=== PATIENT | male | born 1945 | race Hispanic/Latino ===

== ENCOUNTER 2020-02-08 08:57 | Inpatient (IN) | payer BC, MEDICARE ==
[2020-02-08] MEDS ORDERED: LORazepam 2 MG/ML VIAL IV ONE (09:05)
--- NOTE | 2020-02-08 09:46 | Cat Scan Report ---
CT HEAD WITHOUT CONTRAST INDICATION / CLINICAL INFORMATION: MAIN: CODE STROKE CALL [phone]. TECHNIQUE: Axial imaging performed from the skull apex through the skull base without the use of cont rast. Sagittal and coronal reformatted images. All CT scans at this location are performed using CT dose reduction for ALARA by means of automated exposure control. COMPARISON: None available. FINDINGS: CEREBRAL PARENCHYMA: No significant abnormality. No acute territorial infarct. HEMORRHAGE: None. EXTRA-AXIAL SPACES: Normal in size and morphology for the patient's age. VENTRICULAR SYSTEM: Normal in size and morphology for the patient's age. MIDLINE SHIFT OR HERNIATION: None. CEREBELLUM / BRAINSTEM: No significant abnormality. CALVARIUM: No significant abnormality. ORBITS: Normal as visualized. 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 The remaining sinuses are adequately aerated. SOFT TISSUES of HEAD: No significant abnormality. ADDITIONAL FINDINGS: None. IMPRESSION: No acute intracranial abnormality. Chronic left maxillary sinusitis. These findings were discussed with LAUREL Carcamo ironworker machine operator, in the emergency department at 0941 hours. Signer Name: Rivera Martinez Jr, MD Signed: 02/08/2020 9:42 AM Workstation Name: [id number]
[2020-02-08] MEDS ORDERED: SODIUM CHLORIDE 0.9% 1000 ML 2,000 ML ONE (10:01)
[2020-02-08] MEDS ORDERED: SODIUM CHLORIDE 0.9% 1000 ML 1,000 ML IV ONE ×3 (10:06→10:50)
[2020-02-08] MEDS ORDERED: LORazepam 2 MG/ML VIAL ONE (10:08)
[2020-02-08 10:16] LABS: INR 1.02 (0.87-1.13)
[2020-02-08 10:17] LABS: Partial Thromboplastin Time 23.2 Sec. (24.2-36.6); Thrombin Time 18.6 Sec. (15.1-19.6)
[2020-02-08 10:18] LABS: Mean Corpuscular HGB Conc 32 % (32-34); Mean Corpuscular Volume 90 fl (84-94); Red Blood Count 5.59 M/mm3 (3.65-5.03); Red Cell Distribution Width 14.1 % (13.2-15.2)
--- NOTE | 2020-02-08 10:22 | Cat Scan Report ---
CT ANGIOGRAM 02/08/2020 HISTORY: CVA FINDINGS: Contrast-enhanced CT angiographic images of the neck were obtained. In addition to the axia l images, sagittal and coronal reformatted images were obtained. In addition, 3 plane MIP reconstruct ions were produced. NASCET like criteria were used in this evaluation. There is no evidence of carotid bifurcation stenosis. There is normal contours of the common and inte rnal carotid arteries. Tortuosity of the cervical internal carotid arteries is present, more pronounc ed on the right than on the left. Vertebral artery contours are unremarkable. Visualized portions of the aortic arch demonstrate no significant abnormality. Soft tissue structures in the neck are unremarkable. IMPRESSION: No significant abnormality. All CT scans at this location are performed using dose reduction to ALARA by means of automated expos ure control. Signer Name: Carter Lacey MD Signed: 02/08/2020 10:18 AM Workstation Name: [id number]
[2020-02-08 10:27] LABS: Platelet Count 197 K/mm3 (140-440)
--- NOTE | 2020-02-08 10:36 | Emergency Department Report ---
ED Altered Mental Status HPI - General Stated Complaint: AMS Time Seen by Provider: 02/08/20 09:19 - History of Present Illness Initial Comments: Patient is 74-year-old male with history of hypertension. Patient brought to the emergency room via EMS from home for evaluation of altered mental status and decreased responsiveness. EMS stated that patient stated that last time he was normal was 9 PM when he went to bed. denied any history of seizure. She also denied any history of previous stroke. She also informed EMS that he did not have any fever or chills recently. Stroke protocol immediately initiated and patient moved to CT for stat CT brain. Upon return from the CT patient became more obtunded, patient is unable to maintain his airway. Patient immediately intubated by me using a glide scope with ET tube confirmation by direct visualization, capnometry and good breath sounds on both side. Sepsis protocol also initiated for possible sepsis. Patient examined by Dr. Nieto, he advised that patient is not a TPA candidate because of unknown time of onset. MD Complaint: altered mental status, decreased responsiveness -: unknown Severity: severe - Related Data Allergies Allergy/AdvReac Type Severity Reaction Status Date / Time Iodine and Iodide Containing Allergy Anaphylaxis Verified 02/08/20 11:38 Produc ED Review of Systems ROS: Stated complaint: AMS Other details as noted in HPI Comment: Unobtainable due to pts medical conditions ED Physical Exam - General General appearance: obtunded - Head Head exam: Present: atraumatic, normocephalic, normal inspection - Eye Eye exam: Present: conjunctival injection (Left eye.) - ENT ENT exam: Present: mucous membranes dry - Neck Neck exam: Present: normal inspection - Respiratory Respiratory exam: Present: normal lung sounds bilaterally - Cardiovascular Cardiovascular Exam: Present: tachycardia - GI/Abdominal GI/Abdominal exam: Present: soft, normal bowel sounds. Absent: distended, tenderness - Extremities Exam Extremities exam: Present: normal inspection, full ROM, normal capillary refill - Back Exam Back exam: Present: normal inspection, full ROM. Absent: CVA tenderness (R), CVA tenderness (L) - Neurological Exam Neurological exam: Present: altered - Psychiatric Psychiatric exam: Present: normal mood - Skin Skin exam: Present: warm, intact, normal color - Assessment Assessment Interval: Baseline - Level of Consciousness 1a. Level of Consciousness: coma/unresponsive - LOC Questions 1b. LOC Questions: answers no questions correctly - LOC Command 1c. LOC Commands: performs no tasks correctly - Best Gaze 2. Best Gaze: normal - Visual 3. Visual: bilateral hemianopia - Facial Palsy 4. Facial Palsy: normal symmetrical movement - Motor Arm 5a. Motor Arm Left: no movement 5b. Motor Arm Right: no movement - Motor Leg 6a. Motor Leg Left: no movement 6b. Motor Leg Right: no movement - Limb Ataxia 7. Limb Ataxia: absent - Sensory 8. Sensory: coma/unresponsive - Best Language 9. Best Language: coma/unresponsive - Dysarthria 10. Dysarthria: intubated or other barrier - Extinction and Inattention 11. Extinction/Inattention: no abnormality - Scoring Total Score: 31 Stroke Severity: Severe Stroke ED Course Vital Signs 02/08/20 02/08/20 02/08/20 09:12 09:49 10:00 Temperature 99.7 F H Pulse Rate 116 H 115 H 97 H Respiratory 24 28 H 12 Rate Blood Pressure 89/53 146/65 O2 Sat by Pulse 98 99 Oximetry 02/08/20 02/08/20 02/08/20 10:12 10:15 10:30 Temperature Pulse Rate 110 H 101 H 108 H Respiratory 19 24 Rate Blood Pressure 164/73 164/73 166/83 O2 Sat by Pulse 100 100 96 Oximetry 02/08/20 02/08/20 02/08/20 10:45 11:00 11:15 Temperature Pulse Rate 113 H 114 H 114 H Respiratory 20 21 29 H Rate Blood Pressure 176/76 163/78 144/55 O2 Sat by Pulse 100 100 100 Oximetry 02/08/20 02/08/20 02/08/20 11:30 11:45 12:15 Temperature Pulse Rate 112 H 109 H 108 H Respiratory 23 24 23 Rate Blood Pressure 159/73 144/68 130/69 O2 Sat by Pulse 100 99 100 Oximetry 02/08/20 02/08/20 02/08/20 12:45 13:15 13:45 Temperature Pulse Rate 100 H 95 H 93 H Respiratory 22 20 18 Rate Blood Pressure 128/63 119/57 105/52 O2 Sat by Pulse 100 99 98 Oximetry 02/08/20 02/08/20 02/08/20 14:15 14:45 15:15 Temperature Pulse Rate 92 H 89 87 Respiratory 18 18 21 Rate Blood Pressure 105/51 103/58 106/58 O2 Sat by Pulse 98 98 98 Oximetry 02/08/20 02/08/20 02/08/20 15:45 16:15 16:27 Temperature Pulse Rate 85 86 84 Respiratory 20 20 Rate Blood Pressure 107/58 104/58 104/58 O2 Sat by Pulse 97 98 98 Oximetry 02/08/20 02/08/20 02/08/20 16:45 17:00 17:15 Temperature Pulse Rate 82 82 84 Respiratory 20 20 20 Rate Blood Pressure 106/59 94/51 88/50 O2 Sat by Pulse 99 98 99 Oximetry 02/08/20 02/08/20 02/08/20 17:46 18:15 18:45 Temperature Pulse Rate 83 86 84 Respiratory 20 20 20 Rate Blood Pressure 102/54 113/58 112/58 O2 Sat by Pulse 99 99 99 Oximetry 02/08/20 02/08/20 02/08/20 19:15 19:45 20:00 Temperature Pulse Rate 81 79 82 Respiratory 20 20 Rate Blood Pressure 101/53 108/55 111/59 O2 Sat by Pulse 99 100 98 Oximetry 02/08/20 02/08/20 02/08/20 20:15 20:45 21:45 Temperature Pulse Rate 82 81 86 Respiratory 20 20 20 Rate Blood Pressure 113/58 124/60 115/62 O2 Sat by Pulse 99 97 100 Oximetry 02/08/20 02/08/20 02/08/20 22:30 22:45 23:01 Temperature Pulse Rate 78 76 76 Respiratory 20 20 20 Rate Blood Pressure 95/53 100/55 121/62 O2 Sat by Pulse 99 100 Oximetry 02/08/20 02/08/20 02/08/20 23:15 23:30 23:45 Temperature Pulse Rate 87 80 79 Respiratory 17 20 20 Rate Blood Pressure 121/62 111/55 111/55 O2 Sat by Pulse 100 99 99 Oximetry 02/08/20 02/09/20 02/09/20 23:46 00:00 00:11 Temperature Pulse Rate 80 76 75 Respiratory 20 20 20 Rate Blood Pressure 111/55 90/52 90/52 O2 Sat by Pulse 99 98 100 Oximetry 02/09/20 02/09/20 02/09/20 00:15 00:30 00:45 Temperature Pulse Rate 75 72 70 Respiratory 20 20 20 Rate Blood Pressure 90/52 96/53 96/53 O2 Sat by Pulse 100 100 Oximetry 02/09/20 02/09/20 02/09/20 01:00 01:15 01:30 Temperature Pulse Rate 68 68 70 Respiratory 20 20 20 Rate Blood Pressure 91/53 91/53 106/59 O2 Sat by Pulse 98 100 Oximetry 02/09/20 02/09/20 02/09/20 01:45 02:00 02:15 Temperature Pulse Rate 72 68 70 Respiratory 20 20 20 Rate Blood Pressure 106/59 97/53 97/53 O2 Sat by Pulse 99 100 100 Oximetry 02/09/20 02/09/20 02/09/20 02:30 02:45 03:01 Temperature Pulse Rate 68 69 77 Respiratory 20 20 20 Rate Blood Pressure 95/53 95/53 124/64 O2 Sat by Pulse 99 99 Oximetry 02/09/20 02/09/20 02/09/20 03:15 03:30 03:34 Temperature Pulse Rate 77 75 76 Respiratory 20 20 Rate Blood Pressure 124/64 104/56 104/75 O2 Sat by Pulse 99 100 100 Oximetry 02/09/20 02/09/20 02/09/20 03:45 04:00 04:15 Temperature Pulse Rate 75 74 74 Respiratory 20 21 20 Rate Blood Pressure 104/56 98/50 98/50 O2 Sat by Pulse 100 99 100 Oximetry 02/09/20 02/09/20 02/09/20 04:30 04:45 05:00 Temperature Pulse Rate 77 75 72 Respiratory 20 20 20 Rate Blood Pressure 107/57 107/57 107/54 O2 Sat by Pulse 100 100 Oximetry 02/09/20 02/09/20 02/09/20 05:15 05:30 05:45 Temperature Pulse Rate 78 73 74 Respiratory 20 20 20 Rate Blood Pressure 107/54 102/54 102/54 O2 Sat by Pulse 99 99 100 Oximetry 02/09/20 02/09/20 02/09/20 06:00 06:15 06:30 Temperature Pulse Rate 77 79 77 Respiratory 20 19 20 Rate Blood Pressure 111/58 111/58 116/59 O2 Sat by Pulse 100 99 Oximetry 02/09/20 02/09/20 02/09/20 06:45 07:00 07:15 Temperature Pulse Rate 77 77 76 Respiratory 20 20 20 Rate Blood Pressure 116/59 115/56 115/56 O2 Sat by Pulse 100 99 100 Oximetry 02/09/20 02/09/20 02/09/20 07:30 07:45 08:00 Temperature 98.7 F Pulse Rate 75 74 77 Respiratory 20 20 20 Rate Blood Pressure 107/55 107/55 120/61 O2 Sat by Pulse 100 99 100 Oximetry 02/09/20 02/09/20 02/09/20 08:15 08:30 08:45 Temperature Pulse Rate 75 76 81 Respiratory 20 20 21 Rate Blood Pressure 120/61 113/54 113/54 O2 Sat by Pulse 99 98 99 Oximetry 02/09/20 02/09/20 02/09/20 08:55 09:00 09:15 Temperature Pulse Rate 74 90 76 Respiratory 20 20 Rate Blood Pressure 103/52 130/60 130/60 O2 Sat by Pulse 100 97 99 Oximetry 02/09/20 02/09/20 02/09/20 09:31 09:45 10:00 Temperature Pulse Rate 73 72 74 Respiratory 20 20 20 Rate Blood Pressure 94/48 94/48 103/52 O2 Sat by Pulse 97 99 98 Oximetry 02/09/20 02/09/20 02/09/20 10:15 10:30 10:45 Temperature Pulse Rate 73 76 77 Respiratory 20 20 20 Rate Blood Pressure 103/52 123/63 103/52 O2 Sat by Pulse 99 99 99 Oximetry 02/09/20 02/09/20 02/09/20 11:00 11:15 11:30 Temperature Pulse Rate 79 81 81 Respiratory 20 20 20 Rate Blood Pressure 135/63 135/63 109/58 O2 Sat by Pulse 100 100 Oximetry 02/09/20 02/09/20 02/09/20 11:45 12:00 12:15 Temperature 98.8 F Pulse Rate 78 78 93 H Respiratory 20 20 17 Rate Blood Pressure 109/58 108/55 108/55 O2 Sat by Pulse 100 98 Oximetry 02/09/20 02/09/20 02/09/20 12:30 12:36 12:45 Temperature Pulse Rate 82 68 88 Respiratory 16 14 Rate Blood Pressure 116/55 116/51 116/55 O2 Sat by Pulse 97 100 98 Oximetry 02/09/20 02/09/20 02/09/20 13:00 13:15 13:30 Temperature Pulse Rate 83 84 84 Respiratory 14 14 14 Rate Blood Pressure 107/54 107/54 109/53 O2 Sat by Pulse 97 98 Oximetry 02/09/20 02/09/20 02/09/20 13:45 14:00 14:15 Temperature Pulse Rate 89 85 83 Respiratory 13 15 15 Rate Blood Pressure 109/53 112/56 112/56 O2 Sat by Pulse 99 98 Oximetry 02/09/20 02/09/20 02/09/20 14:30 14:45 15:00 Temperature Pulse Rate 80 81 81 Respiratory 15 16 18 Rate Blood Pressure 118/56 118/56 109/58 O2 Sat by Pulse 98 99 98 Oximetry 02/09/20 02/09/20 02/09/20 15:15 15:30 15:45 Temperature Pulse Rate 81 83 93 H Respiratory 14 15 12 Rate Blood Pressure 109/58 116/61 116/61 O2 Sat by Pulse 99 99 100 Oximetry 02/09/20 02/09/20 02/09/20 16:01 16:15 16:30 Temperature Pulse Rate 89 85 110 H Respiratory 15 16 25 H Rate Blood Pressure 133/65 133/65 138/83 O2 Sat by Pulse 99 99 99 Oximetry 02/09/20 02/09/20 02/09/20 16:35 16:45 17:00 Temperature Pulse Rate 112 H 90 82 Respiratory 17 16 Rate Blood Pressure 138/83 138/83 110/54 O2 Sat by Pulse 100 98 96 Oximetry 02/09/20 02/09/20 02/09/20 17:15 17:30 17:45 Temperature Pulse Rate 82 80 79 Respiratory 16 16 16 Rate Blood Pressure 110/54 103/53 103/53 O2 Sat by Pulse 98 96 98 Oximetry 02/09/20 02/09/20 18:00 19:00 Temperature Pulse Rate 84 87 Respiratory 22 15 Rate Blood Pressure 107/57 127/65 O2 Sat by Pulse 97 Oximetry - Intubation Time Out Performed: Yes Sedative: Etomidate Paralytic: Succinylcholine Laryngoscope: Thalia Size: 4 Assist Device Used: fiberoptic device ET Tube Size: 7.5 Tube Secured Location: teeth Tube Placement Confirmation: visualized tube passing t, equal breath sounds bilat, no breath sounds over epi, confirmation by capnometr Patient Tolerated Procedure: well, no complications Intubation Complications: none - Lab Data Result diagrams: 02/10/20 04:01 02/11/20 04:09 Lab Results 02/08/20 02/08/20 02/08/20 Range/Units 09:12 09:55 09:55 WBC 21.0 H (4.5-11.0) K/mm3 RBC 5.59 H (3.65-5.03) M/mm3 Hgb 16.0 H (11.8-15.2) gm/dl Hct 50.0 H (35.5-45.6) % MCV 90 (84-94) fl MCH 29 (28-32) pg MCHC 32 (32-34) % RDW 14.1 (13.2-15.2) % Plt Count 197 (140-440) K/mm3 Lymph % (Auto) Dust Mixer [place] % (Auto) Dust Mixer Eos % (Auto) Dust Mixer Baso % (Auto) Dust Mixer Lymph # Dust Mixer [place] # Dust Mixer Eos # Dust Mixer Baso # Dust Mixer Add Manual Diff Complete Total Counted 100 Seg Neutrophils % Dust Mixer Seg Neuts % (Manual) 94.0 H (40.0-70.0) % Band Neutrophils % 0 % Lymphocytes % (Manual) 2.0 L (13.4-35.0) % Reactive Lymphs % (Man) 0 % Monocytes % (Manual) 4.0 (0.0-7.3) % Eosinophils % (Manual) 0 (0.0-4.3) % Basophils % (Manual) 0 (0.0-1.8) % Metamyelocytes % 0 % Myelocytes % 0 % Promyelocytes % 0 % Blast Cells % 0 % Nucleated RBC % 1.0 H (0.0-0.9) % Seg Neutrophils # Dust Mixer Seg Neutrophils # Man 19.7 H (1.8-7.7) K/mm3 Band Neutrophils # 0.0 K/mm3 Lymphocytes # (Manual) 0.4 L (1.2-5.4) K/mm3 Abs React Lymphs (Man) 0.0 K/mm3 Monocytes # (Manual) 0.8 (0.0-0.8) K/mm3 Eosinophils # (Manual) 0.0 (0.0-0.4) K/mm3 Basophils # (Manual) 0.0 (0.0-0.1) K/mm3 Metamyelocytes # 0.0 K/mm3 Myelocytes # 0.0 K/mm3 Promyelocytes # 0.0 K/mm3 Blast Cells # 0.0 K/mm3 WBC Morphology Not Reportable Hypersegmented Neuts Not Reportable Hyposegmented Neuts Not Reportable Hypogranular Neuts Not Reportable Smudge Cells Not Reportable Toxic Granulation Not Reportable Toxic Vacuolation Not Reportable Dohle Bodies Not Reportable Pelger-Huet Anomaly Not Reportable Tanner Rods Not Reportable Platelet Estimate Consistent w auto Clumped Platelets Not Reportable Plt Clumps, EDTA Not Reportable Large Platelets Rare Giant Platelets Not Reportable Platelet Satelliting Not Reportable Plt Morphology Comment Not Reportable RBC Morphology Normal Dimorphic RBCs Not Reportable Polychromasia Not Reportable Hypochromasia Not Reportable Poikilocytosis Not Reportable Anisocytosis Not Reportable Microcytosis Not Reportable Macrocytosis Not Reportable Spherocytes Not Reportable Pappenheimer Bodies Not Reportable Sickle Cells Not Reportable Target Cells Not Reportable Tear Drop Cells Not Reportable Ovalocytes Not Reportable Helmet Cells Not Reportable Zav[place] Bodies Not Reportable [place] Rings Not Reportable Golden Cells Not Reportable Bite Cells Not Reportable Crenated Cell Not Reportable Elliptocytes Not Reportable Acanthocytes (Spur) Not Reportable Rouleaux Not Reportable Hemoglobin C Crystals Not Reportable Schistocytes Not Reportable Malaria parasites Not Reportable Clement Bodies Not Reportable Hem Pathologist Commnt No PT 13.5 (12.2-14.9) Sec. INR 1.02 (0.87-1.13) APTT 23.2 L (24.2-36.6) Sec. Thrombin Time 18.6 (15.1-19.6) Sec. D-Dimer 299.15 H (0-234) ng/mlDDU ABG pH (7.350-7.450) pH Units ABG pCO2 mm Hg ABG pO2 (80.0-90.0) mm Hg ABG HCO3 (20.0-26.0) mmol/L ABG O2 Saturation (95.0-99.0) % ABG O2 Content (0.0-44) ABG Base Excess (-2.0-3.0) mmol/L ABG Hemoglobin (14.0-18.0) gm/dl ABG Carboxyhemoglobin (0.0-5.0) % ABG Methemoglobin (0.0-1.5) % Oxyhemoglobin (95.0-99.0) % FiO2 % Sodium (137-145) mmol/L Potassium (3.6-5.0) mmol/L Chloride (98-107) mmol/L Carbon Dioxide (22-30) mmol/L Anion Gap mmol/L BUN (9-20) mg/dL Creatinine (0.8-1.5) mg/dL Estimated GFR ml/min BUN/Creatinine Ratio % Glucose (75-100) mg/dL POC Glucose > 500 H (70-105) Lactic Acid (0.7-2.0) mmol/L Calcium (8.4-10.2) mg/dL Phosphorus (2.5-4.5) mg/dL Magnesium (1.7-2.3) mg/dL Ferritin (13.0-400.0) ng/mL Total Bilirubin (0.1-1.2) mg/dL Direct Bilirubin (0-0.2) mg/dL Indirect Bilirubin mg/dL AST (5-40) units/L ALT (7-56) units/L Alkaline Phosphatase (35-129) units/L Lactate Dehydrogenase (91-180) units/L Total Creatine Kinase (55-170) units/L CK-MB (CK-2) (0.0-4.0) ng/mL CK-MB (CK-2) Rel Index (0-4) Troponin T (0.00-0.029) ng/mL C-Reactive Protein (0.00-1.30) mg/dL Total Protein (6.3-8.2) g/dL Albumin (3.9-5) g/dL Albumin/Globulin Ratio % Procalcitonin (<0.15) ng/mL Urine Color (Yellow) Urine Turbidity (Clear) Urine pH (5.0-7.0) Ur Specific [place] (1.003-1.030) Urine Protein (Negative) mg/dL Urine Glucose (UA) (Negative) mg/dL Urine Ketones (Negative) mg/dL Urine Blood (Negative) Urine Nitrite (Negative) Urine Bilirubin (Negative) Urine Urobilinogen (<2.0) mg/dL Ur Leukocyte Esterase (Negative) Urine WBC (Auto) (0.0-6.0) /HPF Urine RBC (Auto) (0.0-6.0) /HPF Urine Bacteria (Auto) (Negative) /HPF Urine Yeast (Budding) /HPF Urine Opiates Screen Urine Methadone Screen Ur Barbiturates Screen Ur Phencyclidine Scrn Ur Amphetamines Screen U Benzodiazepines Scrn Urine Cocaine Screen U Marijuana (THC) Screen Drugs of Abuse Note Plasma/Serum Alcohol (0-0.07) % 02/08/20 02/08/20 02/08/20 Range/Units 09:55 09:55 09:55 WBC (4.5-11.0) K/mm3 RBC (3.65-5.03) M/mm3 Hgb (11.8-15.2) gm/dl Hct (35.5-45.6) % MCV (84-94) fl MCH (28-32) pg MCHC (32-34) % RDW (13.2-15.2) % Plt Count (140-440) K/mm3 Lymph % (Auto) [place] % (Auto) Eos % (Auto) Baso % (Auto) Lymph # [place] # Eos # Baso # Add Manual Diff Total Counted Seg Neutrophils % Seg Neuts % (Manual) (40.0-70.0) % Band Neutrophils % % Lymphocytes % (Manual) (13.4-35.0) % Reactive Lymphs % (Man) % Monocytes % (Manual) (0.0-7.3) % Eosinophils % (Manual) (0.0-4.3) % Basophils % (Manual) (0.0-1.8) % Metamyelocytes % % Myelocytes % % Promyelocytes % % Blast Cells % % Nucleated RBC % (0.0-0.9) % Seg Neutrophils # Seg Neutrophils # Man (1.8-7.7) K/mm3 Band Neutrophils # K/mm3 Lymphocytes # (Manual) (1.2-5.4) K/mm3 Abs React Lymphs (Man) K/mm3 Monocytes # (Manual) (0.0-0.8) K/mm3 Eosinophils # (Manual) (0.0-0.4) K/mm3 Basophils # (Manual) (0.0-0.1) K/mm3 Metamyelocytes # K/mm3 Myelocytes # K/mm3 Promyelocytes # K/mm3 Blast Cells # K/mm3 WBC Morphology Hypersegmented Neuts Hyposegmented Neuts Hypogranular Neuts Smudge Cells Toxic Granulation Toxic Vacuolation Dohle Bodies Pelger-Huet Anomaly Tanner Rods Platelet Estimate Clumped Platelets Plt Clumps, EDTA Large Platelets Giant Platelets Platelet Satelliting Plt Morphology Comment RBC Morphology Dimorphic RBCs Polychromasia Hypochromasia Poikilocytosis Anisocytosis Microcytosis Macrocytosis Spherocytes Pappenheimer Bodies Sickle Cells Target Cells Tear Drop Cells Ovalocytes Helmet Cells Zav[place] Bodies [place] Rings Lili Cells Bite Cells Crenated Cell Elliptocytes Acanthocytes (Spur) Rouleaux Hemoglobin C Crystals Schistocytes Malaria parasites Clement Bodies Hem Pathologist Commnt PT (12.2-14.9) Sec. INR (0.87-1.13) APTT (24.2-36.6) Sec. Thrombin Time (15.1-19.6) Sec. D-Dimer (0-234) ng/mlDDU ABG pH (7.350-7.450) pH Units ABG pCO2 mm Hg ABG pO2 (80.0-90.0) mm Hg ABG HCO3 (20.0-26.0) mmol/L ABG O2 Saturation (95.0-99.0) % ABG O2 Content (0.0-44) ABG Base Excess (-2.0-3.0) mmol/L ABG Hemoglobin (14.0-18.0) gm/dl ABG Carboxyhemoglobin (0.0-5.0) % ABG Methemoglobin (0.0-1.5) % Oxyhemoglobin (95.0-99.0) % FiO2 % Sodium 128 L (137-145) mmol/L Potassium 5.1 H (3.6-5.0) mmol/L Chloride 91.4 L (98-107) mmol/L Carbon Dioxide 10 L (22-30) mmol/L Anion Gap 32 mmol/L BUN 38 H (9-20) mg/dL Creatinine 2.7 H (0.8-1.5) mg/dL Estimated GFR 23 ml/min BUN/Creatinine Ratio 14 % Glucose 803 H* (75-100) mg/dL POC Glucose (70-105) Lactic Acid (0.7-2.0) mmol/L Calcium 9.2 (8.4-10.2) mg/dL Phosphorus (2.5-4.5) mg/dL Magnesium (1.7-2.3) mg/dL Ferritin (13.0-400.0) ng/mL Total Bilirubin 0.30 (0.1-1.2) mg/dL Direct Bilirubin < 0.2 (0-0.2) mg/dL Indirect Bilirubin 0.1 mg/dL AST 13 (5-40) units/L ALT 19 (7-56) units/L Alkaline Phosphatase 85 (35-129) units/L Lactate Dehydrogenase 140 (91-180) units/L Total Creatine Kinase 69 (55-170) units/L CK-MB (CK-2) 1.2 (0.0-4.0) ng/mL CK-MB (CK-2) Rel Index 1.7 (0-4) Troponin T < 0.010 < 0.010 (0.00-0.029) ng/mL C-Reactive Protein 0.30 (0.00-1.30) mg/dL Total Protein 5.9 L (6.3-8.2) g/dL Albumin 3.5 L (3.9-5) g/dL Albumin/Globulin Ratio 1.5 % Procalcitonin (<0.15) ng/mL Urine Color (Yellow) Urine Turbidity (Clear) Urine pH (5.0-7.0) Ur Specific [place] (1.003-1.030) Urine Protein (Negative) mg/dL Urine Glucose (UA) (Negative) mg/dL Urine Ketones (Negative) mg/dL Urine Blood (Negative) Urine Nitrite (Negative) Urine Bilirubin (Negative) Urine Urobilinogen (<2.0) mg/dL Ur Leukocyte Esterase (Negative) Urine WBC (Auto) (0.0-6.0) /HPF Urine RBC (Auto) (0.0-6.0) /HPF Urine Bacteria (Auto) (Negative) /HPF Urine Yeast (Budding) /HPF Urine Opiates Screen Urine Methadone Screen Ur Barbiturates Screen Ur Phencyclidine Scrn Ur Amphetamines Screen U Benzodiazepines Scrn Urine Cocaine Screen U Marijuana (THC) Screen Drugs of Abuse Note Plasma/Serum Alcohol < 0.01 (0-0.07) % 02/08/20 02/08/20 02/08/20 Range/Units 09:55 09:55 10:30 WBC (4.5-11.0) K/mm3 RBC (3.65-5.03) M/mm3 Hgb (11.8-15.2) gm/dl Hct (35.5-45.6) % MCV (84-94) fl MCH (28-32) pg MCHC (32-34) % RDW (13.2-15.2) % Plt Count (140-440) K/mm3 Lymph % (Auto) [place] % (Auto) Eos % (Auto) Baso % (Auto) Lymph # [place] # Eos # Baso # Add Manual Diff Total Counted Seg Neutrophils % Seg Neuts % (Manual) (40.0-70.0) % Band Neutrophils % % Lymphocytes % (Manual) (13.4-35.0) % Reactive Lymphs % (Man) % Monocytes % (Manual) (0.0-7.3) % Eosinophils % (Manual) (0.0-4.3) % Basophils % (Manual) (0.0-1.8) % Metamyelocytes % % Myelocytes % % Promyelocytes % % Blast Cells % % Nucleated RBC % (0.0-0.9) % Seg Neutrophils # Seg Neutrophils # Man (1.8-7.7) K/mm3 Band Neutrophils # K/mm3 Lymphocytes # (Manual) (1.2-5.4) K/mm3 Abs React Lymphs (Man) K/mm3 Monocytes # (Manual) (0.0-0.8) K/mm3 Eosinophils # (Manual) (0.0-0.4) K/mm3 Basophils # (Manual) (0.0-0.1) K/mm3 Metamyelocytes # K/mm3 Myelocytes # K/mm3 Promyelocytes # K/mm3 Blast Cells # K/mm3 WBC Morphology Hypersegmented Neuts Hyposegmented Neuts Hypogranular Neuts Smudge Cells Toxic Granulation Toxic Vacuolation Dohle Bodies Pelger-Huet Anomaly Tanner Rods Platelet Estimate Clumped Platelets Plt Clumps, EDTA Large Platelets Giant Platelets Platelet Satelliting Plt Morphology Comment RBC Morphology Dimorphic RBCs Polychromasia Hypochromasia Poikilocytosis Anisocytosis Microcytosis Macrocytosis Spherocytes Pappenheimer Bodies Sickle Cells Target Cells Tear Drop Cells Ovalocytes Helmet Cells Zavala-[place] Bodies [place] Rings Lili Cells Bite Cells Crenated Cell Elliptocytes Acanthocytes (Spur) Rouleaux Hemoglobin C Crystals Schistocytes Malaria parasites Clement Bodies Hem Pathologist Commnt PT (12.2-14.9) Sec. INR (0.87-1.13) APTT (24.2-36.6) Sec. Thrombin Time (15.1-19.6) Sec. D-Dimer (0-234) ng/mlDDU ABG pH 7.275 L (7.350-7.450) pH Units ABG pCO2 38.4 mm Hg ABG pO2 365.1 H (80.0-90.0) mm Hg ABG HCO3 17.4 L (20.0-26.0) mmol/L ABG O2 Saturation 99.5 H (95.0-99.0) % ABG O2 Content 21.5 (0.0-44) ABG Base Excess -8.7 L (-2.0-3.0) mmol/L ABG Hemoglobin 15.0 (14.0-18.0) gm/dl ABG Carboxyhemoglobin 0.9 (0.0-5.0) % ABG Methemoglobin 0.8 (0.0-1.5) % Oxyhemoglobin 97.8 (95.0-99.0) % FiO2 100 % Sodium (137-145) mmol/L Potassium (3.6-5.0) mmol/L Chloride (98-107) mmol/L Carbon Dioxide (22-30) mmol/L Anion Gap mmol/L BUN (9-20) mg/dL Creatinine (0.8-1.5) mg/dL Estimated GFR ml/min BUN/Creatinine Ratio % Glucose (75-100) mg/dL POC Glucose (70-105) Lactic Acid (0.7-2.0) mmol/L Calcium (8.4-10.2) mg/dL Phosphorus (2.5-4.5) mg/dL Magnesium (1.7-2.3) mg/dL Ferritin 861.7 H (13.0-400.0) ng/mL Total Bilirubin (0.1-1.2) mg/dL Direct Bilirubin (0-0.2) mg/dL Indirect Bilirubin mg/dL AST (5-40) units/L ALT (7-56) units/L Alkaline Phosphatase (35-129) units/L Lactate Dehydrogenase (91-180) units/L Total Creatine Kinase (55-170) units/L CK-MB (CK-2) (0.0-4.0) ng/mL CK-MB (CK-2) Rel Index (0-4) Troponin T (0.00-0.029) ng/mL C-Reactive Protein (0.00-1.30) mg/dL Total Protein (6.3-8.2) g/dL Albumin (3.9-5) g/dL Albumin/Globulin Ratio % Procalcitonin < 0.05 (<0.15) ng/mL Urine Color (Yellow) Urine Turbidity (Clear) Urine pH (5.0-7.0) Ur Specific [place] (1.003-1.030) Urine Protein (Negative) mg/dL Urine Glucose (UA) (Negative) mg/dL Urine Ketones (Negative) mg/dL Urine Blood (Negative) Urine Nitrite (Negative) Urine Bilirubin (Negative) Urine Urobilinogen (<2.0) mg/dL Ur Leukocyte Esterase (Negative) Urine WBC (Auto) (0.0-6.0) /HPF Urine RBC (Auto) (0.0-6.0) /HPF Urine Bacteria (Auto) (Negative) /HPF Urine Yeast (Budding) /HPF Urine Opiates Screen Urine Methadone Screen Ur Barbiturates Screen Ur Phencyclidine Scrn Ur Amphetamines Screen U Benzodiazepines Scrn Urine Cocaine Screen U Marijuana (THC) Screen Drugs of Abuse Note Plasma/Serum Alcohol (0-0.07) % 02/08/20 02/08/20 02/08/20 Range/Units 10:45 11:36 11:36 WBC (4.5-11.0) K/mm3 RBC (3.65-5.03) M/mm3 Hgb (11.8-15.2) gm/dl Hct (35.5-45.6) % MCV (84-94) fl MCH (28-32) pg MCHC (32-34) % RDW (13.2-15.2) % Plt Count (140-440) K/mm3 Lymph % (Auto) [place] % (Auto) Eos % (Auto) Baso % (Auto) Lymph # [place] # Eos # Baso # Add Manual Diff Total Counted Seg Neutrophils % Seg Neuts % (Manual) (40.0-70.0) % Band Neutrophils % % Lymphocytes % (Manual) (13.4-35.0) % Reactive Lymphs % (Man) % Monocytes % (Manual) (0.0-7.3) % Eosinophils % (Manual) (0.0-4.3) % Basophils % (Manual) (0.0-1.8) % Metamyelocytes % % Myelocytes % % Promyelocytes % % Blast Cells % % Nucleated RBC % (0.0-0.9) % Seg Neutrophils # Seg Neutrophils # Man (1.8-7.7) K/mm3 Band Neutrophils # K/mm3 Lymphocytes # (Manual) (1.2-5.4) K/mm3 Abs React Lymphs (Man) K/mm3 Monocytes # (Manual) (0.0-0.8) K/mm3 Eosinophils # (Manual) (0.0-0.4) K/mm3 Basophils # (Manual) (0.0-0.1) K/mm3 Metamyelocytes # K/mm3 Myelocytes # K/mm3 Promyelocytes # K/mm3 Blast Cells # K/mm3 WBC Morphology Hypersegmented Neuts Hyposegmented Neuts Hypogranular Neuts Smudge Cells Toxic Granulation Toxic Vacuolation Dohle Bodies Pelger-Huet Anomaly Tanner Rods Platelet Estimate Clumped Platelets Plt Clumps, EDTA Large Platelets Giant Platelets Platelet Satelliting Plt Morphology Comment RBC Morphology Dimorphic RBCs Polychromasia Hypochromasia Poikilocytosis Anisocytosis Microcytosis Macrocytosis Spherocytes Pappenheimer Bodies Sickle Cells Target Cells Tear Drop Cells Ovalocytes Helmet Cells Zavala-[place]uel[place] Bodies [place] Rings Golden Cells Bite Cells Crenated Cell Elliptocytes Acanthocytes (Spur) Rouleaux Hemoglobin C Crystals Schistocytes Malaria parasites Clement Bodies Hem Pathologist Commnt PT (12.2-14.9) Sec. INR (0.87-1.13) APTT (24.2-36.6) Sec. Thrombin Time (15.1-19.6) Sec. D-Dimer (0-234) ng/mlDDU ABG pH (7.350-7.450) pH Units ABG pCO2 mm Hg ABG pO2 (80.0-90.0) mm Hg ABG HCO3 (20.0-26.0) mmol/L ABG O2 Saturation (95.0-99.0) % ABG O2 Content (0.0-44) ABG Base Excess (-2.0-3.0) mmol/L ABG Hemoglobin (14.0-18.0) gm/dl ABG Carboxyhemoglobin (0.0-5.0) % ABG Methemoglobin (0.0-1.5) % Oxyhemoglobin (95.0-99.0) % FiO2 % Sodium (137-145) mmol/L Potassium (3.6-5.0) mmol/L Chloride (98-107) mmol/L Carbon Dioxide (22-30) mmol/L Anion Gap mmol/L BUN (9-20) mg/dL Creatinine (0.8-1.5) mg/dL Estimated GFR ml/min BUN/Creatinine Ratio % Glucose (75-100) mg/dL POC Glucose (70-105) Lactic Acid 6.10 H* (0.7-2.0) mmol/L Calcium (8.4-10.2) mg/dL Phosphorus (2.5-4.5) mg/dL Magnesium (1.7-2.3) mg/dL Ferritin (13.0-400.0) ng/mL Total Bilirubin (0.1-1.2) mg/dL Direct Bilirubin (0-0.2) mg/dL Indirect Bilirubin mg/dL AST (5-40) units/L ALT (7-56) units/L Alkaline Phosphatase (35-129) units/L Lactate Dehydrogenase (91-180) units/L Total Creatine Kinase (55-170) units/L CK-MB (CK-2) (0.0-4.0) ng/mL CK-MB (CK-2) Rel Index (0-4) Troponin T (0.00-0.029) ng/mL C-Reactive Protein (0.00-1.30) mg/dL Total Protein (6.3-8.2) g/dL Albumin (3.9-5) g/dL Albumin/Globulin Ratio % Procalcitonin (<0.15) ng/mL Urine Color Yellow (Yellow) Urine Turbidity Slightly-cloudy (Clear) Urine pH 5.0 (5.0-7.0) Ur Specific [place] 1.024 (1.003-1.030) Urine Protein <15 mg/dl (Negative) mg/dL Urine Glucose (UA) >=500 (Negative) mg/dL Urine Ketones Tr (Negative) mg/dL Urine Blood Mod (Negative) Urine Nitrite Pos (Negative) Urine Bilirubin Neg (Negative) Urine Urobilinogen < 2.0 (<2.0) mg/dL Ur Leukocyte Esterase Sm (Negative) Urine WBC (Auto) 65.0 H (0.0-6.0) /HPF Urine RBC (Auto) 15.0 (0.0-6.0) /HPF Urine Bacteria (Auto) 1+ (Negative) /HPF Urine Yeast (Budding) 2+ /HPF Urine Opiates Screen Presumptive negative Urine Methadone Screen Presumptive negative Ur Barbiturates Screen Presumptive negative Ur Phencyclidine Scrn Presumptive negative Ur Amphetamines Screen Presumptive negative U Benzodiazepines Scrn Presumptive negative Urine Cocaine Screen Presumptive negative U Marijuana (THC) Screen Presumptive negative Drugs of Abuse Note Disclamer Plasma/Serum Alcohol (0-0.07) % 02/08/20 02/08/20 Range/Units 11:40 11:40 WBC (4.5-11.0) K/mm3 RBC (3.65-5.03) M/mm3 Hgb (11.8-15.2) gm/dl Hct (35.5-45.6) % MCV (84-94) fl MCH (28-32) pg MCHC (32-34) % RDW (13.2-15.2) % Plt Count (140-440) K/mm3 Lymph % (Auto) [place] % (Auto) Eos % (Auto) Baso % (Auto) Lymph # [place] # Eos # Baso # Add Manual Diff Total Counted Seg Neutrophils % Seg Neuts % (Manual) (40.0-70.0) % Band Neutrophils % % Lymphocytes % (Manual) (13.4-35.0) % Reactive Lymphs % (Man) % Monocytes % (Manual) (0.0-7.3) % Eosinophils % (Manual) (0.0-4.3) % Basophils % (Manual) (0.0-1.8) % Metamyelocytes % % Myelocytes % % Promyelocytes % % Blast Cells % % Nucleated RBC % (0.0-0.9) % Seg Neutrophils # Seg Neutrophils # Man (1.8-7.7) K/mm3 Band Neutrophils # K/mm3 Lymphocytes # (Manual) (1.2-5.4) K/mm3 Abs React Lymphs (Man) K/mm3 Monocytes # (Manual) (0.0-0.8) K/mm3 Eosinophils # (Manual) (0.0-0.4) K/mm3 Basophils # (Manual) (0.0-0.1) K/mm3 Metamyelocytes # K/mm3 Myelocytes # K/mm3 Promyelocytes # K/mm3 Blast Cells # K/mm3 WBC Morphology Hypersegmented Neuts Hyposegmented Neuts Hypogranular Neuts Smudge Cells Toxic Granulation Toxic Vacuolation Dohle Bodies Pelger-Huet Anomaly Tanner Rods Platelet Estimate Clumped Platelets Plt Clumps, EDTA Large Platelets Giant Platelets Platelet Satelliting Plt Morphology Comment RBC Morphology Dimorphic RBCs Polychromasia Hypochromasia Poikilocytosis Anisocytosis Microcytosis Macrocytosis Spherocytes Pappenheimer Bodies Sickle Cells Target Cells Tear Drop Cells Ovalocytes Helmet Cells Zavala-[place] Bodies [place] Rings Golden Cells Bite Cells Crenated Cell Elliptocytes Acanthocytes (Spur) Rouleaux Hemoglobin C Crystals Schistocytes Malaria parasites Clement Bodies Hem Pathologist Commnt PT (12.2-14.9) Sec. INR (0.87-1.13) APTT (24.2-36.6) Sec. Thrombin Time (15.1-19.6) Sec. D-Dimer (0-234) ng/mlDDU ABG pH (7.350-7.450) pH Units ABG pCO2 mm Hg ABG pO2 (80.0-90.0) mm Hg ABG HCO3 (20.0-26.0) mmol/L ABG O2 Saturation (95.0-99.0) % ABG O2 Content (0.0-44) ABG Base Excess (-2.0-3.0) mmol/L ABG Hemoglobin (14.0-18.0) gm/dl ABG Carboxyhemoglobin (0.0-5.0) % ABG Methemoglobin (0.0-1.5) % Oxyhemoglobin (95.0-99.0) % FiO2 % Sodium 130 L (137-145) mmol/L Potassium 5.1 H (3.6-5.0) mmol/L Chloride 91.5 L (98-107) mmol/L Carbon Dioxide 14 L (22-30) mmol/L Anion Gap 30 mmol/L BUN 38 H (9-20) mg/dL Creatinine 2.3 H (0.8-1.5) mg/dL Estimated GFR 28 ml/min BUN/Creatinine Ratio 17 % Glucose 727 H* (75-100) mg/dL POC Glucose (70-105) Lactic Acid (0.7-2.0) mmol/L Calcium 9.3 (8.4-10.2) mg/dL Phosphorus 4.00 (2.5-4.5) mg/dL Magnesium 2.70 H (1.7-2.3) mg/dL Ferritin (13.0-400.0) ng/mL Total Bilirubin (0.1-1.2) mg/dL Direct Bilirubin (0-0.2) mg/dL Indirect Bilirubin mg/dL AST (5-40) units/L ALT (7-56) units/L Alkaline Phosphatase (35-129) units/L Lactate Dehydrogenase (91-180) units/L Total Creatine Kinase (55-170) units/L CK-MB (CK-2) (0.0-4.0) ng/mL CK-MB (CK-2) Rel Index (0-4) Troponin T (0.00-0.029) ng/mL C-Reactive Protein (0.00-1.30) mg/dL Total Protein (6.3-8.2) g/dL Albumin (3.9-5) g/dL Albumin/Globulin Ratio % Procalcitonin (<0.15) ng/mL Urine Color (Yellow) Urine Turbidity (Clear) Urine pH (5.0-7.0) Ur Specific [place] (1.003-1.030) Urine Protein (Negative) mg/dL Urine Glucose (UA) (Negative) mg/dL Urine Ketones (Negative) mg/dL Urine Blood (Negative) Urine Nitrite (Negative) Urine Bilirubin (Negative) Urine Urobilinogen (<2.0) mg/dL Ur Leukocyte Esterase (Negative) Urine WBC (Auto) (0.0-6.0) /HPF Urine RBC (Auto) (0.0-6.0) /HPF Urine Bacteria (Auto) (Negative) /HPF Urine Yeast (Budding) /HPF Urine Opiates Screen Urine Methadone Screen Ur Barbiturates Screen Ur Phencyclidine Scrn Ur Amphetamines Screen U Benzodiazepines Scrn Urine Cocaine Screen U Marijuana (THC) Screen Drugs of Abuse Note Plasma/Serum Alcohol (0-0.07) % - EKG Data -: EKG Interpreted by Me - Radiology Data Radiology results: report reviewed - Medical Decision Making Patient is 74-year-old male with history of hypertension. Patient brought to the emergency room via EMS from home for evaluation of altered mental status and decreased responsiveness. EMS stated that patient stated that last time he was normal was 9 PM when he went to bed. denied any history of seizure. She also denied any history of previous stroke. She also informed EMS that he did not have any fever or chills recently. Stroke protocol immediately initiated and patient moved to CT for stat CT brain. Upon return from the CT patient became more obtunded, patient is unable to maintain his airway. Patient immediately intubated by me using a glide scope with ET tube confirmation by direct visualization, capnometry and good breath sounds on both side. Sepsis protocol also initiated for possible sepsis. Patient examined by Dr. Nieto, he advised that patient is not a TPA candidate because of unknown time of onset. Labs reviewed and showed lactic acid of 6.1. Patient also found to be in a DKA. Patient also found to have a UTI. Patient received Zosyn. Sepsis protocol continued. Patient started on insulin drip. I discussed the patient with , he agreed to admit the patient to medical service. Critical Care Time: Yes Critical care time in (mins) excluding proc time.: 45 Critical care attestation.: If time is entered above; I have spent that time in minutes in the direct care of this critically ill patient, excluding procedure time. ED Disposition Clinical Impression: Altered mental status, Sepsis, UTI (urinary tract infection), DKA (diabetic ketoacidoses) Disposition: OP ADMIT IP TO THIS HOSP Is pt being admited?: Yes Condition: Stable
--- NOTE | 2020-02-08 10:37 | Consultation ---
History of Present Illness Consult date: 02/08/20 History of present illness: [facility] Date of Service: 02/08/2020 09:11:37 Impression: Rule Out Acute Ischemic Stroke More likely toxic and metabolic, hypoglycemia, and seizure likely provoked. Comments/Sign-Out: Patient was found by his family today with ams, when ems arrived BG was < 20, then he was given D5, his BG was tested "high" then. In route he had a seizure, so was given % mg of Versed and then in ed 2 mg Ativan, now not responding but no seizure activity. BG now > 500. - Toxic and metabolic work up - BG management - If not better and no obvious cause then MRI brain Metrics: Last Known Well: 02/07/2020 21:00:00 [employer] Notification Time: 02/08/2020 09:11:37 Arrival Time: 02/08/2020 08:57:00 Stamp Time: 02/08/2020 09:11:37 Time First Login Attempt: 02/08/2020 09:11:37 Video Start Time: 02/08/2020 09:11:37 Symptoms: ams NIHSS Start Assessment Time: 02/08/2020 09:12:00 Patient is not a candidate for tPA. Patient was not deemed candidate for tPA thrombolytics because of Last Well Known Above 4.5 Hours. Video End Time: 02/08/2020 09:20:30 CT head showed no acute hemorrhage or acute core infarct. CT head was reviewed. Clinical Presentation is Suggestive of Large Vessel Occlusive Disease, Recommendations are as Follows Reviewed, No Indication of Large Vessel Occlusive Thrombus, Patient is not an DELONTE Candidate. ED Physician notified of diagnostic impression and management plan on 02/08/2020 10:48:36 Our recommendations are outlined below. Recommendations: Activate Stroke Protocol Admission/Order Set Stroke/Telemetry Floor Neuro Checks Bedside Swallow Eval DVT Prophylaxis IV Fluids, Normal Saline Head of Bed Below 30 Degrees Euglycemia and Avoid Hyperthermia (PRN Acetaminophen) Antiplatelet Therapy Recommended Routine Consultation with Inhouse Neurology for Follow up Care Sign Out: Discussed with Emergency Department Provider History of Present Illness: Patient is a 74 year old Male. Patient was brought by EMS for symptoms of ams Patient was found by his family today with ams, when ems arrived BG was < 20, then he was given D5, his BG was tested "high" then. In route he had a seizure, so was given % mg of Versed and then in ed 2 mg Ativan, now not responding but no seizure activity. BG now > 500. CT head showed no acute hemorrhage or acute core infarct. CT head was reviewed. Examination: NIHSS cannot be completed due to patient status. Patient was informed the Neurology Consult would happen via TeleHealth consult by way of interactive audio and video telecommunications and consented to receiving care in this manner. Due to the immediate potential for life-threatening deterioration due to underlying acute neurologic illness, I spent 35 minutes providing critical care. This time includes time for face to face visit via telemedicine, review of medical records, imaging studies and discussion of findings with providers, the patient and/or family. Dr Albino Nieto [employer] Case [id number] Medications and Allergies Allergies Allergy/AdvReac Type Severity Reaction Status Date / Time No Known Allergies Allergy Unverified 02/08/20 10:38 Active Meds: Active Medications Sodium Chloride (Nacl 0.9% 1000 Ml) 1,000 mls @ 999 mls/hr IV BOLUS ONE Stop: 02/08/20 11:06 Physical Examination - Vital Signs Vital Signs: Vital Signs Pulse BP Pulse Ox 110 H 164/73 100 02/08/20 10:12 02/08/20 10:12 02/08/20 10:12 Results - Laboratory Findings CBC and BMP: 02/08/20 09:55 Abnormal Lab Findings: Abnormal Labs 02/08/20 02/08/20 09:55 09:55 WBC 21.0 H RBC 5.59 H Hgb 16.0 H Hct 50.0 H APTT 23.2 L
[2020-02-08 10:39] LABS: ABG Base Excess -8.7 mmol/L (-2.0-3.0); ABG HCO3 17.4 mmol/L (20.0-26.0); ABG Methemoglobin 0.8 % (0.0-1.5); ABG Oxygen Saturation 99.5 % (95.0-99.0); ABG PCO2 38.4 mm Hg; ABG PH 7.275 pH Units (7.350-7.450)
--- NOTE | 2020-02-08 10:43 | Cat Scan Report ---
HEAD CT ANGIOGRAM 02/08/2020 HISTORY: CVA FINDINGS: Contrast-enhanced CT angiographic images of the intracranial circulation were obtained. In addition to the axial images, sagittal and coronal reformatted images were obtained. In addition, 3 p erica MIP reconstructions were produced. There is no evidence of vessel occlusion or significant stenosis. Normal contours are present at the level of the skull base and lumbee of [place]. There is no evidence of aneurysm. Because of the early bolus timing, there is limited venous opacification. Incidental note is made of opacification of the sphenoid sinus and left maxillary sinus. IMPRESSION: No significant abnormality. All CT scans at this location are performed using dose reduction to ALARA by means of automated expos ure control. Signer Name: Carter Lacey MD Signed: 02/08/2020 10:39 AM Workstation Name: [id number]
[2020-02-08] MEDS ORDERED: PIPERACILLIN/TAZOBACTAM 3.375 3.375 GM/50 ML BAG IV ONE (10:48)
[2020-02-08 11:04] LABS: Creatine Kinase MB 1.2 ng/mL (0.0-4.0)
[2020-02-08 11:07] LABS: Alanine Aminotransferase 19 units/L (7-56); Albumin 3.5 g/dL (3.9-5); BUN/Creatinine Ratio 14; Blood Urea Nitrogen 38 mg/dL (9-20); Calcium 9.2 mg/dL (8.4-10.2); Hemolysis Index 14
[2020-02-08 11:28] LABS: Bilirubin,Direct < 0.2 mg/dL (0-0.2)
--- NOTE | 2020-02-08 11:34 | XRay Report ---
CHEST 1 VIEW INDICATION / CLINICAL INFORMATION: Altered mental status. COMPARISON: None available. FINDINGS: SUPPORT DEVICES: Endotracheal tube in place with tip terminating approximately 4.2 cm above the katia a. Enteric tube coursing beneath the diaphragm with the tip not visualized. HEART / MEDIASTINUM: Unremarkable allowing for AP technique. LUNGS / PLEURA: Mild right basilar subsegmental atelectasis. No focal pulmonary consolidation. No ple ural effusion. No pneumothorax. ADDITIONAL FINDINGS: No significant additional findings. IMPRESSION: 1. Lines and tubes as above. 2. No acute cardiopulmonary abnormality identified. Signer Name: Eliane Mitchell MD Signed: 02/08/2020 11:30 AM Workstation Name: [id number]
[2020-02-08 11:35] LABS: ABG PO2 365.1 mm Hg (80.0-90.0)
[2020-02-08] MEDS ORDERED: fentaNYL DRIP Premix 2,000 MCG/100 ML BAG IV ONE (11:35)
[2020-02-08] MEDS ORDERED: LIP THERAPY VASELINE TP PRN (11:37)
[2020-02-08] MEDS ORDERED: fentaNYL 100 MCG/2 ML INJ IV PRN (11:37)
[2020-02-08] MEDS ORDERED: MINERAL OIL/PETROLATUM, WHITE OPHTH OINT 3.5 GM OU PRN (11:37)
[2020-02-08 11:42] LABS: Basophils % (Manual) 0 % (0.0-1.8); Eosinophils % (Manual) 0 % (0.0-4.3); Total Cells Counted 100
[2020-02-08 11:43] LABS: RBC Morphology Normal
[2020-02-08 11:44] LABS: Large Platelets Rare; Platelet Estimate Consistent w Auto
[2020-02-08] MEDS ORDERED: INSULIN REGULAR, HUMAN 100 UNITS in SODIUM CHLORIDE 0.9% 99 ML IV SCH ×2 (12:00→22:00)
[2020-02-08] MEDS: fentaNYL DRIP Premix 2,000 MCG/100 ML BAG IV SCH (12:00)
[2020-02-08 12:18] LABS: Bacteria,Urine 1+ /HPF (Negative); Bilirubin,Urine NEG (Negative); Blood,Urine MOD (Negative); Color,Urine Yellow (Yellow); Protein,Urine <15 mg/dL mg/dL (Negative); Urobilinogen,Urine < 2.0 mg/dL (<2.0)
[2020-02-08 12:24] LABS: Amphetamine Screen,Urine PRESUMPTIVE NEGATIVE; Benzodiazepines Screen,Urine PRESUMPTIVE NEGATIVE; Cannabinoid Screen,Urine PRESUMPTIVE NEGATIVE; Cocaine Screen,Urine PRESUMPTIVE NEGATIVE; Methadone Screen,Urine PRESUMPTIVE NEGATIVE; Opiate Screen,Urine PRESUMPTIVE NEGATIVE
[2020-02-08 12:36] LABS: Calcium 9.3 mg/dL (8.4-10.2)
--- NOTE | 2020-02-08 12:49 | XRay Report ---
CHEST 1 VIEW INDICATION / CLINICAL INFORMATION: ETT placement. COMPARISON: Chest radiograph 02/08/2020 at 10:58 AM FINDINGS: SUPPORT DEVICES: Satisfactory endotracheal tube position with the tip in the midthoracic trachea. Ent nirmala tube tip enters the stomach, with the tip not definitely shown on this image. HEART / MEDIASTINUM: Stable. LUNGS / PLEURA: No significant change. No pneumothorax. IMPRESSION: No significant change in comparison to 10:58 AM today. Signer Name: Miguel Enamorado MD Signed: 02/08/2020 12:45 PM Workstation Name: [id number]
[2020-02-08 14:25] LABS: Calcium 8.3 mg/dL (8.4-10.2)
[2020-02-08 15:58] LABS: Calcium 8.1 mg/dL (8.4-10.2)
--- NOTE | 2020-02-08 16:18 | History and Physical Report ---
History of Present Illness Date of examination: 02/08/20 Date of admission: 02/08/20 12:36 History of present illness: Patient is +74-year-old male with history of hypertension. Patient brought to the emergency room via EMS from home for evaluation of altered mental status and decreased responsiveness. EMS stated that patient stated that last time he was normal was 9 PM when he went to bed. denied any history of seizure. She also denied any history of previous stroke. She also informed EMS that he did not have any fever or chills recently. Stroke protocol immediately initiated and patient moved to CT for stat CT brain. Upon return from the CT patient became more obtunded, patient is unable to maintain his airway. Patient immediately intubated by me using a glide scope with ET tube confirmation by direct visualization, capnometry and good breath sounds on both side. Sepsis protocol also initiated for possible sepsis. Patient examined by Dr. Nieto, he advised that patient is not a TPA candidate because of unknown time of onset. MD Complaint: altered mental status, decreased responsiveness -: unknown Severity: severe - Related Data Allergies Allergy/AdvReac Type Severity Reaction Status Date / Time Iodine and Iodide Containing Allergy Anaphylaxis Verified 02/08/20 11:38 Produc ED Review of Systems ROS: Stated complaint: AMS Other details as noted in HPI Comment: Unobtainable due to pts medical conditions PUI?: No Medications and Allergies Allergies Allergy/AdvReac Type Severity Reaction Status Date / Time Iodine and Iodide Containing Allergy Anaphylaxis Verified 02/08/20 11:38 Produc Active Meds: Active Medications Fentanyl (Sublimaze) 50 mcg IV Q10MIN PRN PRN Reason: ANALGESIA Hydrophilic Ointment (Vaseline Lip Therapy) 1 applic TP Q2HR PRN PRN Reason: Dry Lips Fentanyl Citrate (Fentanyl Drip Premix) 2,000 mcg in 100 mls @ 4.375 mls/hr IV TITR UBALDO; Protocol Last Admin: 02/08/20 12:00 Dose: 1 mcg/kg/hr, 4.375 mls/hr Documented by: Propofol (Diprivan 10 Mg/Ml) 1,000 mg in 100 mls @ 2.625 mls/hr IV TITR UBALDO; Protocol Last Titration: 02/08/20 15:41 Dose: 15 mcg/kg/min, 7.875 mls/hr Documented by: Insulin Human Regular 100 (units/ Sodium Chloride) 100 mls @ 1 mls/hr IV TITR UBALDO; Protocol Last Titration: 02/08/20 14:29 Dose: 6 units/hr, 6 mls/hr Documented by: Multi-Ingred Cream/Lotion/Oil/Oint (Artificial Tears Ophth Oint) 1 applic OU Q4HR PRN PRN Reason: Dry Eye(s) Exam - Constitutional Vitals: Temp Pulse Resp BP Pulse Ox 99.7 F H 85 20 107/58 97 02/08/20 09:12 02/08/20 15:45 02/08/20 15:45 02/08/20 15:45 02/08/20 15:45 Results - Labs CBC & Chem 7: 02/08/20 09:55 02/08/20 15:15 Labs: Laboratory Last Values WBC 21.0 K/mm3 (4.5-11.0) H 02/08/20 09:55 RBC 5.59 M/mm3 (3.65-5.03) H 02/08/20 09:55 Hgb 16.0 gm/dl (11.8-15.2) H 02/08/20 09:55 Hct 50.0 % (35.5-45.6) H 02/08/20 09:55 MCV 90 fl (84-94) 02/08/20 09:55 MCH 29 pg (28-32) 02/08/20 09:55 MCHC 32 % (32-34) 02/08/20 09:55 RDW 14.1 % (13.2-15.2) 02/08/20 09:55 Plt Count 197 K/mm3 (140-440) 02/08/20 09:55 Lymph % (Auto) Plant Engineer 02/08/20 09:55 [place] % (Auto) Plant Engineer 02/08/20 09:55 Eos % (Auto) Plant Engineer 02/08/20 09:55 Baso % (Auto) Plant Engineer 02/08/20 09:55 Lymph # Plant Engineer 02/08/20 09:55 [place] # Plant Engineer 02/08/20 09:55 Eos # Plant Engineer 02/08/20 09:55 Baso # Plant Engineer 02/08/20 09:55 Add Manual Diff Complete 02/08/20 09:55 Total Counted 100 02/08/20 09:55 Seg Neutrophils % Plant Engineer 02/08/20 09:55 Seg Neuts % (Manual) 94.0 % (40.0-70.0) H 02/08/20 09:55 Band Neutrophils % 0 % 02/08/20 09:55 Lymphocytes % (Manual) 2.0 % (13.4-35.0) L 02/08/20 09:55 Reactive Lymphs % (Man) 0 % 02/08/20 09:55 Monocytes % (Manual) 4.0 % (0.0-7.3) 02/08/20 09:55 Eosinophils % (Manual) 0 % (0.0-4.3) 02/08/20 09:55 Basophils % (Manual) 0 % (0.0-1.8) 02/08/20 09:55 Metamyelocytes % 0 % 02/08/20 09:55 Myelocytes % 0 % 02/08/20 09:55 Promyelocytes % 0 % 02/08/20 09:55 Blast Cells % 0 % 02/08/20 09:55 Nucleated RBC % 1.0 % (0.0-0.9) H 02/08/20 09:55 Seg Neutrophils # Plant Engineer 02/08/20 09:55 Seg Neutrophils # Man 19.7 K/mm3 (1.8-7.7) H 02/08/20 09:55 Band Neutrophils # 0.0 K/mm3 02/08/20 09:55 Lymphocytes # (Manual) 0.4 K/mm3 (1.2-5.4) L 02/08/20 09:55 Abs React Lymphs (Man) 0.0 K/mm3 02/08/20 09:55 Monocytes # (Manual) 0.8 K/mm3 (0.0-0.8) 02/08/20 09:55 Eosinophils # (Manual) 0.0 K/mm3 (0.0-0.4) 02/08/20 09:55 Basophils # (Manual) 0.0 K/mm3 (0.0-0.1) 02/08/20 09:55 Metamyelocytes # 0.0 K/mm3 02/08/20 09:55 Myelocytes # 0.0 K/mm3 02/08/20 09:55 Promyelocytes # 0.0 K/mm3 02/08/20 09:55 Blast Cells # 0.0 K/mm3 02/08/20 09:55 WBC Morphology Not Reportable 02/08/20 09:55 Hypersegmented Neuts Not Reportable 02/08/20 09:55 Hyposegmented Neuts Not Reportable 02/08/20 09:55 Hypogranular Neuts Not Reportable 02/08/20 09:55 Smudge Cells Not Reportable 02/08/20 09:55 Toxic Granulation Not Reportable 02/08/20 09:55 Toxic Vacuolation Not Reportable 02/08/20 09:55 Dohle Bodies Not Reportable 02/08/20 09:55 Pelger-Huet Anomaly Not Reportable 02/08/20 09:55 Tanner Rods Not Reportable 02/08/20 09:55 Platelet Estimate Consistent w auto 02/08/20 09:55 Clumped Platelets Not Reportable 02/08/20 09:55 Plt Clumps, EDTA Not Reportable 02/08/20 09:55 Large Platelets Rare 02/08/20 09:55 Giant Platelets Not Reportable 02/08/20 09:55 Platelet Satelliting Not Reportable 02/08/20 09:55 Plt Morphology Comment Not Reportable 02/08/20 09:55 RBC Morphology Normal 02/08/20 09:55 Dimorphic RBCs Not Reportable 02/08/20 09:55 Polychromasia Not Reportable 02/08/20 09:55 Hypochromasia Not Reportable 02/08/20 09:55 Poikilocytosis Not Reportable 02/08/20 09:55 Anisocytosis Not Reportable 02/08/20 09:55 Microcytosis Not Reportable 02/08/20 09:55 Macrocytosis Not Reportable 02/08/20 09:55 Spherocytes Not Reportable 02/08/20 09:55 Pappenheimer Bodies Not Reportable 02/08/20 09:55 Sickle Cells Not Reportable 02/08/20 09:55 Target Cells Not Reportable 02/08/20 09:55 Tear Drop Cells Not Reportable 02/08/20 09:55 Ovalocytes Not Reportable 02/08/20 09:55 Helmet Cells Not Reportable 02/08/20 09:55 [place] Bodies Not Reportable 02/08/20 09:55 [place] Rings Not Reportable 02/08/20 09:55 [place] Cells Not Reportable 02/08/20 09:55 Bite Cells Not Reportable 02/08/20 09:55 Crenated Cell Not Reportable 02/08/20 09:55 Elliptocytes Not Reportable 02/08/20 09:55 Acanthocytes (Spur) Not Reportable 02/08/20 09:55 Rouleaux Not Reportable 02/08/20 09:55 Hemoglobin C Crystals Not Reportable 02/08/20 09:55 Schistocytes Not Reportable 02/08/20 09:55 Malaria parasites Not Reportable 02/08/20 09:55 [place] Bodies Not Reportable 02/08/20 09:55 Hem Pathologist Commnt No 02/08/20 09:55 PT 13.5 Sec. (12.2-14.9) 02/08/20 09:55 INR 1.02 (0.87-1.13) 02/08/20 09:55 APTT 23.2 Sec. (24.2-36.6) L 02/08/20 09:55 Thrombin Time 18.6 Sec. (15.1-19.6) 02/08/20 09:55 D-Dimer 299.15 ng/mlDDU (0-234) H 02/08/20 09:55 ABG pH 7.275 pH Units (7.350-7.450) L 02/08/20 10:30 ABG pCO2 38.4 mm Hg 02/08/20 10:30 ABG pO2 365.1 mm Hg (80.0-90.0) H 02/08/20 10:30 ABG HCO3 17.4 mmol/L (20.0-26.0) L 02/08/20 10:30 ABG O2 Saturation 99.5 % (95.0-99.0) H 02/08/20 10:30 ABG O2 Content 21.5 (0.0-44) 02/08/20 10:30 ABG Base Excess -8.7 mmol/L (-2.0-3.0) L 02/08/20 10:30 ABG Hemoglobin 15.0 gm/dl (14.0-18.0) 02/08/20 10:30 ABG Carboxyhemoglobin 0.9 % (0.0-5.0) 02/08/20 10:30 ABG Methemoglobin 0.8 % (0.0-1.5) 02/08/20 10:30 Oxyhemoglobin 97.8 % (95.0-99.0) 02/08/20 10:30 FiO2 100 % 02/08/20 10:30 Sodium 138 mmol/L (137-145) 02/08/20 15:15 Potassium 3.9 mmol/L (3.6-5.0) 02/08/20 15:15 Chloride 108.8 mmol/L (98-107) H 02/08/20 15:15 Carbon Dioxide 15 mmol/L (22-30) L 02/08/20 15:15 Anion Gap 18 mmol/L 02/08/20 15:15 BUN 34 mg/dL (9-20) H 02/08/20 15:15 Creatinine 2.0 mg/dL (0.8-1.5) H 02/08/20 15:15 Estimated GFR 33 ml/min 02/08/20 15:15 BUN/Creatinine Ratio 17 % 02/08/20 15:15 Glucose 293 mg/dL (75-100) H 02/08/20 15:15 POC Glucose 305 (70-105) H 02/08/20 15:48 Lactic Acid 1.60 mmol/L (0.7-2.0) 02/08/20 13:55 Calcium 8.1 mg/dL (8.4-10.2) L 02/08/20 15:15 Phosphorus 4.00 mg/dL (2.5-4.5) 02/08/20 11:40 Magnesium 2.70 mg/dL (1.7-2.3) H 02/08/20 11:40 Ferritin 861.7 ng/mL (13.0-400.0) H 02/08/20 09:55 Total Bilirubin 0.30 mg/dL (0.1-1.2) 02/08/20 09:55 Direct Bilirubin < 0.2 mg/dL (0-0.2) 02/08/20 09:55 Indirect Bilirubin 0.1 mg/dL 02/08/20 09:55 AST 13 units/L (5-40) 02/08/20 09:55 ALT 19 units/L (7-56) 02/08/20 09:55 Alkaline Phosphatase 85 units/L (35-129) 02/08/20 09:55 Lactate Dehydrogenase 140 units/L (91-180) 02/08/20 09:55 Total Creatine Kinase 69 units/L (55-170) 02/08/20 09:55 CK-MB (CK-2) 1.2 ng/mL (0.0-4.0) 02/08/20 09:55 CK-MB (CK-2) Rel Index 1.7 (0-4) 02/08/20 09:55 Troponin T < 0.010 ng/mL (0.00-0.029) 02/08/20 09:55 Troponin T < 0.010 ng/mL (0.00-0.029) 02/08/20 09:55 C-Reactive Protein 0.30 mg/dL (0.00-1.30) 02/08/20 09:55 Total Protein 5.9 g/dL (6.3-8.2) L 02/08/20 09:55 Albumin 3.5 g/dL (3.9-5) L 02/08/20 09:55 Albumin/Globulin Ratio 1.5 % 02/08/20 09:55 Procalcitonin < 0.05 ng/mL (<0.15) 02/08/20 09:55 Urine Color Yellow (Yellow) 02/08/20 11:36 Urine Turbidity Slightly-cloudy (Clear) 02/08/20 11:36 Urine pH 5.0 (5.0-7.0) 02/08/20 11:36 Ur Specific [place] 1.024 (1.003-1.030) 02/08/20 11:36 Urine Protein <15 mg/dl mg/dL (Negative) 02/08/20 11:36 Urine Glucose (UA) >=500 mg/dL (Negative) 02/08/20 11:36 Urine Ketones Tr mg/dL (Negative) 02/08/20 11:36 Urine Blood Mod (Negative) 02/08/20 11:36 Urine Nitrite Pos (Negative) 02/08/20 11:36 Urine Bilirubin Neg (Negative) 02/08/20 11:36 Urine Urobilinogen < 2.0 mg/dL (<2.0) 02/08/20 11:36 Ur Leukocyte Esterase Sm (Negative) 02/08/20 11:36 Urine WBC (Auto) 65.0 /HPF (0.0-6.0) H 02/08/20 11:36 Urine RBC (Auto) 15.0 /HPF (0.0-6.0) 02/08/20 11:36 Urine Bacteria (Auto) 1+ /HPF (Negative) 02/08/20 11:36 Urine Yeast (Budding) 2+ /HPF 02/08/20 11:36 Urine Opiates Screen Presumptive negative 02/08/20 11:36 Urine Methadone Screen Presumptive negative 02/08/20 11:36 Ur Barbiturates Screen Presumptive negative 02/08/20 11:36 Ur Phencyclidine Scrn Presumptive negative 02/08/20 11:36 Ur Amphetamines Screen Presumptive negative 02/08/20 11:36 U Benzodiazepines Scrn Presumptive negative 02/08/20 11:36 Urine Cocaine Screen Presumptive negative 02/08/20 11:36 U Marijuana (THC) Screen Presumptive negative 02/08/20 11:36 Drugs of Abuse Note Disclamer 02/08/20 11:36 Plasma/Serum Alcohol < 0.01 % (0-0.07) 02/08/20 09:55 Microbiology: Microbiology 02/08/20 Unknown Peripheral/Venous Blood Culture - Preliminary Culture in Progress 02/08/20 Unknown Peripheral/Venous Blood Culture - Preliminary Culture in Progress - Imaging and Cardiology Chest x-ray: report reviewed Imaging and Cardiology: Head CTA IMPRESSION: No significant abnormality. Neck CTA IMPRESSION: No significant abnormality. Torres/IV: IV Catheter Type [Right INT / Saline Lock Antecubital] Assessment and Plan Advance Directives: Yes Plan of care discussed with patient/family: Yes - Patient Problems (1) DKA (diabetic ketoacidoses) Current Visit: Yes Status: Acute (2) Sepsis Current Visit: Yes Status: Acute (3) UTI (urinary tract infection) Current Visit: Yes Status: Acute
[2020-02-08] MEDS ORDERED: SODIUM BICARBONATE 325 MG TAB FEEDTUBE PRN (16:27)
[2020-02-08] MEDS ORDERED: LIPASE 10,500/PROTEASE 25,000/AMYLASE 43,750 (UNITS) DR CAP FEEDTUBE PRN (16:27)
[2020-02-08] MEDS ORDERED: MORPHINE 2 MG/1 ML INJ IV PRN (16:27)
[2020-02-08] MEDS ORDERED: SIMPLE SYRUP 15 ML FEEDTUBE PRN ×2 (16:27)
[2020-02-08] MEDS ORDERED: HYDROmorphone 1 MG/1 ML INJ IV PRN (16:27)
[2020-02-08] MEDS ORDERED: VANCOMYCIN PHARMACY TO DOSE IV SCH (17:00)
[2020-02-08] MEDS ORDERED: VANCOMYCIN 1,750 MG in SODIUM CHLORIDE 0.9% 500 ML 500 ML IV SCH (17:00)
[2020-02-08] MEDS ORDERED: POTASSIUM CHLORIDE 10 MEQ 10 MEQ/100 ML BAG IV PRN ×2 (17:00)
[2020-02-08] MEDS ORDERED: CEFEPIME/NS 2 GM/100 ML 2 GM/100 ML BAG IV SCH (17:00)
[2020-02-08] MEDS ORDERED: D5W/0.9% NACL 1,000 ML IV ONE (17:16)
[2020-02-08] MEDS: D5W/0.9% NACL 1,000 ML IV SCH (17:29)
[2020-02-08 18:38] LABS: Calcium 8.8 mg/dL (8.4-10.2)
[2020-02-08] MEDS ORDERED: CEFEPIME/NS 1 GM/100 ML 1 GM/100 ML BAG IV ONE (22:58)
[2020-02-08] MEDS ORDERED: CEFEPIME/NS 2 GM/100 ML 2 GM/100 ML BAG IV ONE (23:03)
[2020-02-08] MEDS: CEFEPIME/NS 2 GM/100 ML 2 GM/100 ML BAG IV SCH (23:04)
[2020-02-09] MEDS ORDERED: D5W/0.9% NACL 1,000 ML IV ONE ×2 (01:42→12:16)
[2020-02-09] MEDS: D5W/0.9% NACL 1,000 ML IV SCH ×2 (01:47→12:46)
[2020-02-09] MEDS ORDERED: fentaNYL DRIP Premix 2,000 MCG/100 ML BAG IV ONE ×2 (02:46→13:55)
--- NOTE | 2020-02-09 04:18 | XRay Report ---
CHEST 1 VIEW 02/09/2020 2:48 AM INDICATION / CLINICAL INFORMATION: follow up respiratory failure. COMPARISON: 02/08/20 FINDINGS: SUPPORT DEVICES: Unchanged. HEART / MEDIASTINUM: Stable. LUNGS / PLEURA: No significant pulmonary or pleural abnormality. No pneumothorax. ADDITIONAL FINDINGS: No significant additional findings. IMPRESSION: 1. No significant change. Signer Name: Karon Batres MD Signed: 02/09/2020 4:13 AM Workstation Name: [id number]
[2020-02-09 05:00] LABS: Calcium 8.2 mg/dL (8.4-10.2)
[2020-02-09 06:21] LABS: ABG Base Excess -5.9 mmol/L (-2.0-3.0); ABG HCO3 19.7 mmol/L (20.0-26.0); ABG Methemoglobin 0.6 % (0.0-1.5); ABG Oxygen Saturation 98.9 % (95.0-99.0); ABG PCO2 38.8 mm Hg; ABG PH 7.323 pH Units (7.350-7.450); ABG PO2 164.8 mm Hg (80.0-90.0)
--- NOTE | 2020-02-09 08:02 | History and Physical Report ---
CHIEF COMPLAINT: Decreased responsiveness since a.m. HISTORY OF PRESENT ILLNESS: A 74-year-old with history of hypertension, was normal at 9:00 p.m. last night and went to bed. denies any seizures. No strokes in the past. The patient was lethargic and had decreased responsiveness in the morning because of which EMS was called. EMS was called for altered mental status and decreased responsiveness. The patient was initiated on CT stroke protocol, and upon return from the CT scan, patient became more obtunded and hypoxic because of which the patient was intubated by the ER physician. No fever. Teleneurology was consulted. The patient was not a TPA candidate because of unknown time of onset of altered mental status and decreased responsiveness. No fever. No chills. No dysuria and no recent exposure to coronavirus. PAST MEDICAL HISTORY: Hypertension. PAST SURGICAL HISTORY: Unavailable. FAMILY HISTORY: Hypertension. SOCIAL HISTORY: Does not smoke. No alcohol, no recreational drugs. REVIEW OF SYSTEMS: Significant for decreased responsiveness, which is sudden onset. No fever. No chills. PHYSICAL EXAMINATION: GENERAL: Elderly male, intubated. VITAL SIGNS: Blood pressure is 104/75, temperature is 99.7, pulse is 116. Initial blood pressure was 89/53 improved to 146/65 with fluids. Respiratory rate was 24-28, decreased to 12 after intubation. Sats were low initially. HEENT: Pupils equal and reactive. Intubated. NECK: Supple, no lymphadenopathy, no thyromegaly. LUNGS: Clear to auscultation and percussion. Good air entry. CARDIOVASCULAR: S1, S2 heard. No gallop, no murmur, no rub. Apical impulse in left fifth intercostal space in midclavicular line. ABDOMEN: Soft and benign. No hepatosplenomegaly, no guarding, no rigidity. Hernial orifices are normal. EXTREMITIES: Good pedal pulses. CENTRAL NERVOUS SYSTEM: Could not be obtained because of the patient's intubation and sedation. Focal deficits could not be identified. LABORATORY DATA: [place] [address]. H and H _1650.0. D- Dimer was elevated . PTT was 23.2. ABG was significant for pH of 7.275, pO2 of 365, bicarbonate of 17, O2 sats of 92 %. Initial sodium was 130, potassium was 5.1, BUN and creatinine is 38 and 2.3, glucose is 727_. Lactic acid is 6.1. Creatine kinase is normal. C-reactive protein is normal. Urine shows increased white blood cells. Drug screen was negative. Head CT and neck CTA revealed no acute findings. Head CT, no acute intracranial abnormality. Chronic left maxillary sinusitis. EKG reviewed. ASSESSMENT AND PLAN: 1. Acute encephalopathy. Differential diagnosis of pontine stroke versus sepsis. Also, the patient has DKA. The patient was treated for DKA and sepsis. MRI to rule out pontine infarct. Neurology consult requested. ID consult requested. 2. Sepsis. Sepsis protocol initiated. Lactic acid is high, 6.1. 3. Diabetic ketoacidosis. DKA protocol initiated. The patient's sodium is 130 and potassium is 5.1. It should correct with IV insulin. DKA protocol to be followed. IV insulin drip. Monitor glucose closely and electrolytes closely. 4. Hyponatremia. It should correct with correction of glucose levels. 5. Hyperkalemia , mild. Should correct with correction of glucose levels. 6. Malnutrition, mild. Dietitian consult requested. ID consult requested. 7. Deep venous thrombosis prophylaxis, heparin 5000 q. 12. 8. Acute kidney injury. IV fluids for now. BUN and creatinine are 38 and 2.3. Nephrology consult requested. Traffic Sign Erection Supervisor consult requested. Critical care time was 40 minutes. In summary, the patient has sepsis, DKA, possible pontine infarct. MRI to be done to rule out pontine infarct. Traffic Sign Erection Supervisor and ID consult requested. Also, the patient has urinary tract infection for which the patient is initiated on cefepime and vancomycin and follow sepsis protocol. Await blood cultures and urine cultures. Critical care time was 40 minutes. JOB# [id number] TIM/JIMMY MOREAU
[2020-02-09] MEDS ORDERED: DEXTROSE 50% IN WATER (25GM) 50 ML SYRINGE IV PRN (08:30)
[2020-02-09] MEDS ORDERED: SODIUM BICARB 8.4% 50 MEQ/50 ML SYRINGE IV ONE ×2 (09:00→12:10)
--- NOTE | 2020-02-09 10:23 | Consultation ---
History of Present Illness Reason for Consult: Altered mental status unresponsiveness Chief complaint: Altered mental status unresponsiveness History of present illness: Patient is 74-year-old male with history of hypertension. Patient brought to the emergency room via EMS from home for evaluation of altered mental status and decreased responsiveness. The patient is intubated and is on vent and is on sedation propofol. The history is mostly from the chart. According to the EMS the blood glucose was less than 20 he was given D50 and then the blood glucose in the ER was more than 500. Telemetry neurology was consulted and the patient was not deemed a candidate for TPA because of toxic metabolic etiology. His white blood cell count is also 21,000 and d-dimer is also high. Urine WBC count is 65. Blood culture at 19 test has been requested on him. The CT brain was unremarkable and a CTA of the head and neck did not show any significant findings. Medications and Allergies Allergies Allergy/AdvReac Type Severity Reaction Status Date / Time Iodine and Iodide Containing Allergy Anaphylaxis Verified 02/08/20 11:38 Produc Active Meds: Active Medications Lipase/Protease/Amylase (Pancreaze Dr 10,500 Unit) 1 each FEEDTUBE PRN PRN PRN Reason: For Clogged Feeding Tube Dextrose (D50w (25gm) Syringe) 50 ml IV Q30MIN PRN; Protocol PRN Reason: Hypoglycemia Famotidine (Pepcid) 20 mg IV BID UBALDO Heparin Sodium (Porcine) (Heparin) 5,000 unit SUB-Q Q12HR UBALDO Hydromorphone HCl (Dilaudid) 0.5 mg IV Q3H PRN PRN Reason: Pain , Severe (7-10) Hydrophilic Ointment (Vaseline Lip Therapy) 1 applic TP Q2HR PRN PRN Reason: Dry Lips Fentanyl Citrate (Fentanyl Drip Premix) 2,000 mcg in 100 mls @ 4.375 mls/hr IV TITR UBALDO; Protocol Last Titration: 02/08/20 23:17 Dose: 1 mcg/kg/hr, 4.375 mls/hr Documented by: Propofol (Diprivan 10 Mg/Ml) 1,000 mg in 100 mls @ 2.625 mls/hr IV TITR UBALDO; Protocol Last Admin: 02/09/20 03:23 Dose: 10 mcg/kg/min, 5.25 mls/hr Documented by: Potassium Chloride (Kcl 10meq/100ml) 10 meq in 100 mls @ 100 mls/hr IV Q1H PRN PRN Reason: SEE COMMENTS Stop: 02/09/20 16:59 Cefepime HCl (Cefepime/Ns 2 Gm/100 Ml) 2 gm in 100 mls @ 200 mls/hr IV Q12HR UBALDO; Protocol Last Admin: 02/08/20 23:04 Dose: 200 mls/hr Documented by: Vancomycin HCl 1,250 mg/ (Sodium Chloride) 275 mls @ 166.667 mls/hr IV Q24H UBALDO Dextrose/Sodium Chloride (D5ns) 1,000 mls @ 100 mls/hr IV DIRECT UBALDO Insulin Glargine (Lantus) 16 units SUB-Q QHS UBALDO Insulin Human Lispro (Humalog) 0 unit SUB-Q Q6HR UBALDO; Protocol Morphine Sulfate (Morphine) 2 mg IV Q4H PRN PRN Reason: Pain, Moderate (4-6) Multi-Ingred Cream/Lotion/Oil/Oint (Artificial Tears Ophth Oint) 1 applic OU Q4HR PRN PRN Reason: Dry Eye(s) Simple Syrup (Simple Syrup) 15 ml FEEDTUBE PRN PRN PRN Reason: Hypoglycemia Simple Syrup (Simple Syrup) 30 ml FEEDTUBE PRN PRN PRN Reason: Hypoglycemia Sodium Bicarbonate (Sodium Bicarbonate) 325 mg FEEDTUBE PRN PRN PRN Reason: For Clogged Feeding Tube Sodium Chloride (Sodium Chloride Flush Syringe 10 Ml) 10 ml IV BID [facility] Last Admin: 02/08/20 23:04 Dose: 10 ml Documented by: Sodium Chloride (Sodium Chloride Flush Syringe 10 Ml) 10 ml IV PRN PRN PRN Reason: LINE FLUSH Review of Systems ROS unobtainable: due to endotracheal tube Physical Examination - Vital Signs Vital Signs: Vital Signs Temp Pulse Resp BP Pulse Ox 99.7 F H 116 H 24 89/53 98 02/08/20 09:12 02/08/20 09:12 02/08/20 09:12 02/08/20 09:12 02/08/20 09:12 - Physical Exam Narrative exam: The patient is intubated is on ventilator and is on sedation propofol. The neurological examination cannot be assessed. What was reported that he was moving his extremities before the intubation. - EENT EENT: Present: ATNC (Intubated and is on vent.), PERRL Results - Laboratory Findings CBC and BMP: 02/08/20 09:55 02/09/20 04:18 Abnormal Lab Findings: Abnormal Labs 02/08/20 02/08/20 02/08/20 09:55 09:55 09:55 WBC 21.0 H RBC 5.59 H Hgb 16.0 H Hct 50.0 H Seg Neuts % (Manual) 94.0 H Lymphocytes % (Manual) 2.0 L Nucleated RBC % 1.0 H Seg Neutrophils # Man 19.7 H Lymphocytes # (Manual) 0.4 L APTT 23.2 L D-Dimer 299.15 H ABG pH ABG pO2 ABG HCO3 ABG O2 Saturation ABG Base Excess ABG Hemoglobin Sodium 128 L Potassium 5.1 H Chloride 91.4 L Carbon Dioxide 10 L BUN 38 H Creatinine 2.7 H Glucose 803 H* POC Glucose Lactic Acid Calcium Phosphorus Magnesium Ferritin Total Protein 5.9 L Albumin 3.5 L Urine WBC (Auto) 02/08/20 02/08/20 02/08/20 09:55 10:30 10:45 WBC RBC Hgb Hct Seg Neuts % (Manual) Lymphocytes % (Manual) Nucleated RBC % Seg Neutrophils # Man Lymphocytes # (Manual) APTT D-Dimer ABG pH 7.275 L ABG pO2 365.1 H ABG HCO3 17.4 L ABG O2 Saturation 99.5 H ABG Base Excess -8.7 L ABG Hemoglobin Sodium Potassium Chloride Carbon Dioxide BUN Creatinine Glucose POC Glucose Lactic Acid 6.10 H* Calcium Phosphorus Magnesium Ferritin 861.7 H Total Protein Albumin Urine WBC (Auto) 02/08/20 02/08/20 02/08/20 11:36 11:40 11:40 WBC RBC Hgb Hct Seg Neuts % (Manual) Lymphocytes % (Manual) Nucleated RBC % Seg Neutrophils # Man Lymphocytes # (Manual) APTT D-Dimer ABG pH ABG pO2 ABG HCO3 ABG O2 Saturation ABG Base Excess ABG Hemoglobin Sodium 130 L Potassium 5.1 H Chloride 91.5 L Carbon Dioxide 14 L BUN 38 H Creatinine 2.3 H Glucose 727 H* POC Glucose Lactic Acid Calcium Phosphorus Magnesium 2.70 H Ferritin Total Protein Albumin Urine WBC (Auto) 65.0 H 02/08/20 02/08/20 02/08/20 13:21 13:55 14:36 WBC RBC Hgb Hct Seg Neuts % (Manual) Lymphocytes % (Manual) Nucleated RBC % Seg Neutrophils # Man Lymphocytes # (Manual) APTT D-Dimer ABG pH ABG pO2 ABG HCO3 ABG O2 Saturation ABG Base Excess ABG Hemoglobin Sodium 135 L Potassium Chloride Carbon Dioxide 11 L BUN 34 H Creatinine 2.1 H Glucose 473 H POC Glucose > 500 H 342 H Lactic Acid Calcium 8.3 L Phosphorus Magnesium Ferritin Total Protein Albumin Urine WBC (Auto) 02/08/20 02/08/20 02/08/20 15:15 15:48 17:00 WBC RBC Hgb Hct Seg Neuts % (Manual) Lymphocytes % (Manual) Nucleated RBC % Seg Neutrophils # Man Lymphocytes # (Manual) APTT D-Dimer ABG pH ABG pO2 ABG HCO3 ABG O2 Saturation ABG Base Excess ABG Hemoglobin Sodium Potassium Chloride 108.8 H Carbon Dioxide 15 L BUN 34 H Creatinine 2.0 H Glucose 293 H POC Glucose 305 H 249 H Lactic Acid Calcium 8.1 L Phosphorus Magnesium Ferritin Total Protein Albumin Urine WBC (Auto) 02/08/20 02/08/20 02/08/20 18:10 18:10 18:39 WBC RBC Hgb Hct Seg Neuts % (Manual) Lymphocytes % (Manual) Nucleated RBC % Seg Neutrophils # Man Lymphocytes # (Manual) APTT D-Dimer ABG pH ABG pO2 ABG HCO3 ABG O2 Saturation ABG Base Excess ABG Hemoglobin Sodium Potassium Chloride 107.4 H Carbon Dioxide 16 L BUN 31 H Creatinine 2.1 H Glucose 216 H POC Glucose 204 H Lactic Acid Calcium Phosphorus 2.20 L D Magnesium 2.40 H Ferritin Total Protein Albumin Urine WBC (Auto) 02/08/20 02/08/20 02/08/20 19:52 21:34 23:25 WBC RBC Hgb Hct Seg Neuts % (Manual) Lymphocytes % (Manual) Nucleated RBC % Seg Neutrophils # Man Lymphocytes # (Manual) APTT D-Dimer ABG pH ABG pO2 ABG HCO3 ABG O2 Saturation ABG Base Excess ABG Hemoglobin Sodium Potassium Chloride Carbon Dioxide BUN Creatinine Glucose POC Glucose 239 H 209 H 187 H Lactic Acid Calcium Phosphorus Magnesium Ferritin Total Protein Albumin Urine WBC (Auto) 02/09/20 02/09/20 02/09/20 00:35 00:48 01:40 WBC RBC Hgb Hct Seg Neuts % (Manual) Lymphocytes % (Manual) Nucleated RBC % Seg Neutrophils # Man Lymphocytes # (Manual) APTT D-Dimer ABG pH ABG pO2 ABG HCO3 ABG O2 Saturation ABG Base Excess ABG Hemoglobin Sodium Potassium Chloride 114.9 H Carbon Dioxide 15 L BUN 28 H Creatinine Glucose 160 H POC Glucose 160 H 181 H Lactic Acid Calcium 8.0 L Phosphorus Magnesium Ferritin Total Protein Albumin Urine WBC (Auto) 02/09/20 02/09/20 02/09/20 03:04 04:14 04:18 WBC RBC Hgb Hct Seg Neuts % (Manual) Lymphocytes % (Manual) Nucleated RBC % Seg Neutrophils # Man Lymphocytes # (Manual) APTT D-Dimer ABG pH ABG pO2 ABG HCO3 ABG O2 Saturation ABG Base Excess ABG Hemoglobin Sodium Potassium 3.5 L Chloride 117.0 H Carbon Dioxide 19 L BUN 27 H Creatinine Glucose 113 H POC Glucose 136 H 114 H Lactic Acid Calcium 8.2 L Phosphorus Magnesium Ferritin Total Protein Albumin Urine WBC (Auto) 02/09/20 02/09/20 02/09/20 05:27 06:38 Unknown WBC RBC Hgb Hct Seg Neuts % (Manual) Lymphocytes % (Manual) Nucleated RBC % Seg Neutrophils # Man Lymphocytes # (Manual) APTT D-Dimer ABG pH 7.323 L ABG pO2 164.8 H ABG HCO3 19.7 L ABG O2 Saturation ABG Base Excess -5.9 L ABG Hemoglobin 13.6 L Sodium Potassium Chloride Carbon Dioxide BUN Creatinine Glucose POC Glucose 151 H 127 H Lactic Acid Calcium Phosphorus Magnesium Ferritin Total Protein Albumin Urine WBC (Auto) Assessment and Plan The patient was admitted with altered mental status and unresponsiveness. The blood glucose at the site was less than 20 by the EMS. D50 was given. Later on the blood glucose in the ER was greater than 500. Because of lack of unresponsiveness he was intubated. He is on propofol at this time. CT brain and a CTA of the head and neck was unremarkable. Also her white cell count 20 1K and d-dimer is high at 299 and urine WBC count 65. The COVID 19 test has been sent out. The patient most likely has a toxic metabolic etiology for the encephalopathy Including the severe hypoglycemia which he was found At the site. Continue to treat.toxic metabolic etiology and may have possible sepsis. Thank you
[2020-02-09 11:28] LABS: Calcium 8.1 mg/dL (8.4-10.2)
[2020-02-09] MEDS: CEFEPIME/NS 2 GM/100 ML 2 GM/100 ML BAG IV SCH ×2 (11:42→22:25)
[2020-02-09] MEDS: HEPARIN 5,000 UNIT/1 ML VIAL SUB-Q SCH ×2 (11:43→22:25)
[2020-02-09] MEDS: FAMOTIDINE 20 MG/2 ML INJ IV SCH ×2 (11:43→22:25)
[2020-02-09] MEDS ORDERED: fentaNYL 100 MCG/2 ML INJ ONE (12:11)
[2020-02-09] MEDS ORDERED: FAMOTIDINE 20 MG/2 ML INJ IV ONE (12:11)
[2020-02-09] MEDS ORDERED: HEPARIN 5,000 UNIT/1 ML VIAL ONE (12:11)
[2020-02-09] MEDS ORDERED: CEFEPIME/NS 2 GM/100 ML 2 GM/100 ML BAG IV ONE (12:15)
[2020-02-09] MEDS ORDERED: INSULIN LISPRO 100 UNIT/ML SUB-Q ONE (13:33)
[2020-02-09] MEDS: INSULIN LISPRO 100 UNIT/ML SUB-Q SCH ×2 (13:45→17:29)
--- NOTE | 2020-02-09 14:52 | Consultation ---
History of Present Illness Consult date: 02/09/20 Requesting physician: BENNIE GRAY Reason for consult: other (Acute Hypoxemic Resp Failure; DKA) History of present illness: PCCM CONSULT NOTE (Full dictation # [id number]) Please see dictated notes for full details Medications and Allergies Allergies Allergy/AdvReac Type Severity Reaction Status Date / Time Iodine and Iodide Containing Allergy Anaphylaxis Verified 02/08/20 11:38 Produc Active Meds: Active Medications Lipase/Protease/Amylase (Pancreaze Dr 10,500 Unit) 1 each FEEDTUBE PRN PRN PRN Reason: For Clogged Feeding Tube Dextrose (D50w (25gm) Syringe) 50 ml IV Q30MIN PRN; Protocol PRN Reason: Hypoglycemia Famotidine (Pepcid) 20 mg IV BID UBALDO Last Admin: 02/09/20 11:43 Dose: 20 mg Documented by: Heparin Sodium (Porcine) (Heparin) 5,000 unit SUB-Q Q12HR UBALDO Last Admin: 02/09/20 11:43 Dose: 5,000 unit Documented by: Hydromorphone HCl (Dilaudid) 0.5 mg IV Q3H PRN PRN Reason: Pain , Severe (7-10) Hydrophilic Ointment (Vaseline Lip Therapy) 1 applic TP Q2HR PRN PRN Reason: Dry Lips Fentanyl Citrate (Fentanyl Drip Premix) 2,000 mcg in 100 mls @ 4.375 mls/hr IV TITR UBALDO; Protocol Last Titration: 02/08/20 23:17 Dose: 1 mcg/kg/hr, 4.375 mls/hr Documented by: Propofol (Diprivan 10 Mg/Ml) 1,000 mg in 100 mls @ 2.625 mls/hr IV TITR UBALDO; Protocol Last Admin: 02/09/20 03:23 Dose: 10 mcg/kg/min, 5.25 mls/hr Documented by: Potassium Chloride (Kcl 10meq/100ml) 10 meq in 100 mls @ 100 mls/hr IV Q1H PRN PRN Reason: SEE COMMENTS Stop: 02/09/20 16:59 Cefepime HCl (Cefepime/Ns 2 Gm/100 Ml) 2 gm in 100 mls @ 200 mls/hr IV Q12HR UBALDO; Protocol Last Admin: 02/09/20 11:42 Dose: 200 mls/hr Documented by: Vancomycin HCl 1,250 mg/ (Sodium Chloride) 275 mls @ 166.667 mls/hr IV Q24H UBALDO Dextrose/Sodium Chloride (D5ns) 1,000 mls @ 100 mls/hr IV DIRECT [facility] Last Admin: 02/09/20 12:46 Dose: 100 mls/hr Documented by: Insulin Glargine (Lantus) 16 units SUB-Q QHS UBALDO Insulin Human Lispro (Humalog) 0 unit SUB-Q Q6HR UBALDO; Protocol Last Admin: 02/09/20 13:45 Dose: 6 unit Documented by: Morphine Sulfate (Morphine) 2 mg IV Q4H PRN PRN Reason: Pain, Moderate (4-6) Multi-Ingred Cream/Lotion/Oil/Oint (Artificial Tears Ophth Oint) 1 applic OU Q4HR PRN PRN Reason: Dry Eye(s) Simple Syrup (Simple Syrup) 15 ml FEEDTUBE PRN PRN PRN Reason: Hypoglycemia Simple Syrup (Simple Syrup) 30 ml FEEDTUBE PRN PRN PRN Reason: Hypoglycemia Sodium Bicarbonate (Sodium Bicarbonate) 325 mg FEEDTUBE PRN PRN PRN Reason: For Clogged Feeding Tube Sodium Chloride (Sodium Chloride Flush Syringe 10 Ml) 10 ml IV BID [facility] Last Admin: 02/09/20 11:44 Dose: 10 ml Documented by: Sodium Chloride (Sodium Chloride Flush Syringe 10 Ml) 10 ml IV PRN PRN PRN Reason: LINE FLUSH Physical Examination Vital signs: Vital Signs Temp Pulse Resp BP Pulse Ox 99.7 F H 116 H 24 89/53 98 02/08/20 09:12 02/08/20 09:12 02/08/20 09:12 02/08/20 09:12 02/08/20 09:12 Results - Laboratory Findings CBC and BMP: 02/10/20 04:01 02/10/20 04:01 ABG ABG pH 7.323 pH Units (7.350-7.450) L 02/09/20 Unknown ABG pCO2 38.8 mm Hg 02/09/20 Unknown ABG pO2 164.8 mm Hg (80.0-90.0) H 02/09/20 Unknown ABG O2 Saturation 98.9 % (95.0-99.0) 02/09/20 Unknown PT/INR, D-dimer PT 13.5 Sec. (12.2-14.9) 02/08/20 09:55 INR 1.02 (0.87-1.13) 02/08/20 09:55 D-Dimer 299.15 ng/mlDDU (0-234) H 02/08/20 09:55 Abnormal lab findings: Abnormal Labs 02/08/20 02/08/20 02/08/20 09:55 09:55 09:55 WBC 21.0 H RBC 5.59 H Hgb 16.0 H Hct 50.0 H Seg Neuts % (Manual) 94.0 H Lymphocytes % (Manual) 2.0 L Nucleated RBC % 1.0 H Seg Neutrophils # Man 19.7 H Lymphocytes # (Manual) 0.4 L APTT 23.2 L D-Dimer 299.15 H ABG pH ABG pO2 ABG HCO3 ABG O2 Saturation ABG Base Excess ABG Hemoglobin Sodium 128 L Potassium 5.1 H Chloride 91.4 L Carbon Dioxide 10 L BUN 38 H Creatinine 2.7 H Glucose 803 H* POC Glucose Lactic Acid Calcium Phosphorus Magnesium Ferritin Total Protein 5.9 L Albumin 3.5 L Urine WBC (Auto) 02/08/20 02/08/20 02/08/20 09:55 10:30 10:45 WBC RBC Hgb Hct Seg Neuts % (Manual) Lymphocytes % (Manual) Nucleated RBC % Seg Neutrophils # Man Lymphocytes # (Manual) APTT D-Dimer ABG pH 7.275 L ABG pO2 365.1 H ABG HCO3 17.4 L ABG O2 Saturation 99.5 H ABG Base Excess -8.7 L ABG Hemoglobin Sodium Potassium Chloride Carbon Dioxide BUN Creatinine Glucose POC Glucose Lactic Acid 6.10 H* Calcium Phosphorus Magnesium Ferritin 861.7 H Total Protein Albumin Urine WBC (Auto) 02/08/20 02/08/20 02/08/20 11:36 11:40 11:40 WBC RBC Hgb Hct Seg Neuts % (Manual) Lymphocytes % (Manual) Nucleated RBC % Seg Neutrophils # Man Lymphocytes # (Manual) APTT D-Dimer ABG pH ABG pO2 ABG HCO3 ABG O2 Saturation ABG Base Excess ABG Hemoglobin Sodium 130 L Potassium 5.1 H Chloride 91.5 L Carbon Dioxide 14 L BUN 38 H Creatinine 2.3 H Glucose 727 H* POC Glucose Lactic Acid Calcium Phosphorus Magnesium 2.70 H Ferritin Total Protein Albumin Urine WBC (Auto) 65.0 H 02/08/20 02/08/20 02/08/20 13:21 13:55 14:36 WBC RBC Hgb Hct Seg Neuts % (Manual) Lymphocytes % (Manual) Nucleated RBC % Seg Neutrophils # Man Lymphocytes # (Manual) APTT D-Dimer ABG pH ABG pO2 ABG HCO3 ABG O2 Saturation ABG Base Excess ABG Hemoglobin Sodium 135 L Potassium Chloride Carbon Dioxide 11 L BUN 34 H Creatinine 2.1 H Glucose 473 H POC Glucose > 500 H 342 H Lactic Acid Calcium 8.3 L Phosphorus Magnesium Ferritin Total Protein Albumin Urine WBC (Auto) 02/08/20 02/08/20 02/08/20 15:15 15:48 17:00 WBC RBC Hgb Hct Seg Neuts % (Manual) Lymphocytes % (Manual) Nucleated RBC % Seg Neutrophils # Man Lymphocytes # (Manual) APTT D-Dimer ABG pH ABG pO2 ABG HCO3 ABG O2 Saturation ABG Base Excess ABG Hemoglobin Sodium Potassium Chloride 108.8 H Carbon Dioxide 15 L BUN 34 H Creatinine 2.0 H Glucose 293 H POC Glucose 305 H 249 H Lactic Acid Calcium 8.1 L Phosphorus Magnesium Ferritin Total Protein Albumin Urine WBC (Auto) 02/08/20 02/08/20 02/08/20 18:10 18:10 18:39 WBC RBC Hgb Hct Seg Neuts % (Manual) Lymphocytes % (Manual) Nucleated RBC % Seg Neutrophils # Man Lymphocytes # (Manual) APTT D-Dimer ABG pH ABG pO2 ABG HCO3 ABG O2 Saturation ABG Base Excess ABG Hemoglobin Sodium Potassium Chloride 107.4 H Carbon Dioxide 16 L BUN 31 H Creatinine 2.1 H Glucose 216 H POC Glucose 204 H Lactic Acid Calcium Phosphorus 2.20 L D Magnesium 2.40 H Ferritin Total Protein Albumin Urine WBC (Auto) 02/08/20 02/08/20 02/08/20 19:52 21:34 23:25 WBC RBC Hgb Hct Seg Neuts % (Manual) Lymphocytes % (Manual) Nucleated RBC % Seg Neutrophils # Man Lymphocytes # (Manual) APTT D-Dimer ABG pH ABG pO2 ABG HCO3 ABG O2 Saturation ABG Base Excess ABG Hemoglobin Sodium Potassium Chloride Carbon Dioxide BUN Creatinine Glucose POC Glucose 239 H 209 H 187 H Lactic Acid Calcium Phosphorus Magnesium Ferritin Total Protein Albumin Urine WBC (Auto) 02/09/20 02/09/20 02/09/20 00:35 00:48 01:40 WBC RBC Hgb Hct Seg Neuts % (Manual) Lymphocytes % (Manual) Nucleated RBC % Seg Neutrophils # Man Lymphocytes # (Manual) APTT D-Dimer ABG pH ABG pO2 ABG HCO3 ABG O2 Saturation ABG Base Excess ABG Hemoglobin Sodium Potassium Chloride 114.9 H Carbon Dioxide 15 L BUN 28 H Creatinine Glucose 160 H POC Glucose 160 H 181 H Lactic Acid Calcium 8.0 L Phosphorus Magnesium Ferritin Total Protein Albumin Urine WBC (Auto) 02/09/20 02/09/20 02/09/20 03:04 04:14 04:18 WBC RBC Hgb Hct Seg Neuts % (Manual) Lymphocytes % (Manual) Nucleated RBC % Seg Neutrophils # Man Lymphocytes # (Manual) APTT D-Dimer ABG pH ABG pO2 ABG HCO3 ABG O2 Saturation ABG Base Excess ABG Hemoglobin Sodium Potassium 3.5 L Chloride 117.0 H Carbon Dioxide 19 L BUN 27 H Creatinine Glucose 113 H POC Glucose 136 H 114 H Lactic Acid Calcium 8.2 L Phosphorus Magnesium Ferritin Total Protein Albumin Urine WBC (Auto) 02/09/20 02/09/20 02/09/20 05:27 06:38 08:14 WBC RBC Hgb Hct Seg Neuts % (Manual) Lymphocytes % (Manual) Nucleated RBC % Seg Neutrophils # Man Lymphocytes # (Manual) APTT D-Dimer ABG pH ABG pO2 ABG HCO3 ABG O2 Saturation ABG Base Excess ABG Hemoglobin Sodium Potassium Chloride Carbon Dioxide BUN Creatinine Glucose POC Glucose 151 H 127 H 140 H Lactic Acid Calcium Phosphorus Magnesium Ferritin Total Protein Albumin Urine WBC (Auto) 02/09/20 02/09/20 02/09/20 08:45 12:34 Unknown WBC RBC Hgb Hct Seg Neuts % (Manual) Lymphocytes % (Manual) Nucleated RBC % Seg Neutrophils # Man Lymphocytes # (Manual) APTT D-Dimer ABG pH 7.323 L ABG pO2 164.8 H ABG HCO3 19.7 L ABG O2 Saturation ABG Base Excess -5.9 L ABG Hemoglobin 13.6 L Sodium Potassium Chloride 114.3 H Carbon Dioxide 16 L BUN 22 H Creatinine Glucose 225 H POC Glucose 255 H Lactic Acid Calcium 8.1 L Phosphorus Magnesium Ferritin Total Protein Albumin Urine WBC (Auto)
[2020-02-09] MEDS: fentaNYL DRIP Premix 2,000 MCG/100 ML BAG IV SCH (15:13)
[2020-02-09 16:20] LABS: Calcium 8.2 mg/dL (8.4-10.2)
--- NOTE | 2020-02-09 16:39 | Consultation ---
History of Present Illness - Reason for Consult Consult date: 02/09/20 Sepsis Requesting physician: BENNIE GRAY - History of Present Illness The patient is a 74-year-old male with hypertension was brought into the emergency room yesterday with altered mental status. He is currently intubated, on mechanical ventilation. History was obtained by chart review. Intubated for airway protection. UA showed pyuria. WBC was elevated. There was concerns for sepsis. Infectious diseases was consulted for additional evaluation. He has otherwise been afebrile. Review of Systems: Intubated, on mechanical ventilation. Unable to obtain. Medications and Allergies Allergies Allergy/AdvReac Type Severity Reaction Status Date / Time Iodine and Iodide Containing Allergy Anaphylaxis Verified 02/08/20 11:38 Produc Active Meds: Active Medications Lipase/Protease/Amylase (Pancreaze Dr 10,500 Unit) 1 each FEEDTUBE PRN PRN PRN Reason: For Clogged Feeding Tube Dextrose (D50w (25gm) Syringe) 50 ml IV Q30MIN PRN; Protocol PRN Reason: Hypoglycemia Famotidine (Pepcid) 20 mg IV BID UBALDO Last Admin: 02/09/20 11:43 Dose: 20 mg Documented by: Heparin Sodium (Porcine) (Heparin) 5,000 unit SUB-Q Q12HR UBALDO Last Admin: 02/09/20 11:43 Dose: 5,000 unit Documented by: Hydromorphone HCl (Dilaudid) 0.5 mg IV Q3H PRN PRN Reason: Pain , Severe (7-10) Hydrophilic Ointment (Vaseline Lip Therapy) 1 applic TP Q2HR PRN PRN Reason: Dry Lips Fentanyl Citrate (Fentanyl Drip Premix) 2,000 mcg in 100 mls @ 4.375 mls/hr IV TITR UBALDO; Protocol Last Admin: 02/09/20 15:13 Dose: 2 mcg/kg/hr, 8.75 mls/hr Documented by: Propofol (Diprivan 10 Mg/Ml) 1,000 mg in 100 mls @ 2.625 mls/hr IV TITR UBALDO; Protocol Last Titration: 02/09/20 12:40 Dose: 15 mcg/kg/min, 7.875 mls/hr Documented by: Potassium Chloride (Kcl 10meq/100ml) 10 meq in 100 mls @ 100 mls/hr IV Q1H PRN PRN Reason: SEE COMMENTS Stop: 02/09/20 16:59 Cefepime HCl (Cefepime/Ns 2 Gm/100 Ml) 2 gm in 100 mls @ 200 mls/hr IV Q12HR UBALDO; Protocol Last Admin: 02/09/20 11:42 Dose: 200 mls/hr Documented by: Vancomycin HCl 1,250 mg/ (Sodium Chloride) 275 mls @ 166.667 mls/hr IV Q24H UBALDO Dextrose/Sodium Chloride (D5ns) 1,000 mls @ 100 mls/hr IV DIRECT UBALDO Last Admin: 02/09/20 12:46 Dose: 100 mls/hr Documented by: Insulin Glargine (Lantus) 16 units SUB-Q QHS UBALDO Insulin Human Lispro (Humalog) 0 unit SUB-Q Q6HR UBALDO; Protocol Last Admin: 02/09/20 13:45 Dose: 6 unit Documented by: Morphine Sulfate (Morphine) 2 mg IV Q4H PRN PRN Reason: Pain, Moderate (4-6) Multi-Ingred Cream/Lotion/Oil/Oint (Artificial Tears Ophth Oint) 1 applic OU Q4HR PRN PRN Reason: Dry Eye(s) Simple Syrup (Simple Syrup) 15 ml FEEDTUBE PRN PRN PRN Reason: Hypoglycemia Simple Syrup (Simple Syrup) 30 ml FEEDTUBE PRN PRN PRN Reason: Hypoglycemia Sodium Bicarbonate (Sodium Bicarbonate) 325 mg FEEDTUBE PRN PRN PRN Reason: For Clogged Feeding Tube Sodium Chloride (Sodium Chloride Flush Syringe 10 Ml) 10 ml IV BID [facility] Last Admin: 02/09/20 11:44 Dose: 10 ml Documented by: Sodium Chloride (Sodium Chloride Flush Syringe 10 Ml) 10 ml IV PRN PRN PRN Reason: LINE FLUSH Physical Examination - Physical Exam Narrative exam: Physical Exam: Constitutional: sedated, intubated, on the vent Head, Ears, Nose: Normocephalic, atraumatic. External ears, nose normal Eyes: Conjunctivae/corneas clear. No icterus. No ptosis. Neck: intubated Oral: intubated Cardiovascular: S1, S2 + Respiratory: AE fair bilaterally and equal GI: Soft, bowel sounds + Musculoskeletal: No pedal edema, no cyanosis. Skin: No rash or abscess Hem/Lymphatic: No palpable cervical or supraclavicular nodes. No lymphangitis Psych: no agitation Neurological: sedated, intubated, on the vent, exam limited - Constitutional Vitals: Vital Signs Temp Pulse Resp BP Pulse Ox 98.8 F 84 14 107/54 98 02/09/20 12:00 02/09/20 13:15 02/09/20 13:15 02/09/20 13:15 02/09/20 13:15 Temperature -Last 24 Hours Temperature 98.8 F Temperature 98.7 F Results - Labs CBC & Chem 7: 02/08/20 09:55 02/09/20 15:49 Labs: Abnormal lab results 02/08/20 02/08/20 02/08/20 Range/Units 17:00 18:10 18:10 ABG pH (7.350-7.450) pH Units ABG pO2 (80.0-90.0) mm Hg ABG HCO3 (20.0-26.0) mmol/L ABG Base Excess (-2.0-3.0) mmol/L ABG Hemoglobin (14.0-18.0) gm/dl Sodium (137-145) mmol/L Potassium (3.6-5.0) mmol/L Chloride 107.4 H (98-107) mmol/L Carbon Dioxide 16 L (22-30) mmol/L BUN 31 H (9-20) mg/dL Creatinine 2.1 H (0.8-1.5) mg/dL Glucose 216 H (75-100) mg/dL POC Glucose 249 H (70-105) Calcium (8.4-10.2) mg/dL Phosphorus 2.20 L D (2.5-4.5) mg/dL Magnesium 2.40 H (1.7-2.3) mg/dL 02/08/20 02/08/20 02/08/20 Range/Units 18:39 19:52 21:34 ABG pH (7.350-7.450) pH Units ABG pO2 (80.0-90.0) mm Hg ABG HCO3 (20.0-26.0) mmol/L ABG Base Excess (-2.0-3.0) mmol/L ABG Hemoglobin (14.0-18.0) gm/dl Sodium (137-145) mmol/L Potassium (3.6-5.0) mmol/L Chloride (98-107) mmol/L Carbon Dioxide (22-30) mmol/L BUN (9-20) mg/dL Creatinine (0.8-1.5) mg/dL Glucose (75-100) mg/dL POC Glucose 204 H 239 H 209 H (70-105) Calcium (8.4-10.2) mg/dL Phosphorus (2.5-4.5) mg/dL Magnesium (1.7-2.3) mg/dL 02/08/20 02/09/20 02/09/20 Range/Units 23:25 00:35 00:48 ABG pH (7.350-7.450) pH Units ABG pO2 (80.0-90.0) mm Hg ABG HCO3 (20.0-26.0) mmol/L ABG Base Excess (-2.0-3.0) mmol/L ABG Hemoglobin (14.0-18.0) gm/dl Sodium (137-145) mmol/L Potassium (3.6-5.0) mmol/L Chloride 114.9 H (98-107) mmol/L Carbon Dioxide 15 L (22-30) mmol/L BUN 28 H (9-20) mg/dL Creatinine (0.8-1.5) mg/dL Glucose 160 H (75-100) mg/dL POC Glucose 187 H 160 H (70-105) Calcium 8.0 L (8.4-10.2) mg/dL Phosphorus (2.5-4.5) mg/dL Magnesium (1.7-2.3) mg/dL 02/09/20 02/09/20 02/09/20 Range/Units 01:40 03:04 04:14 ABG pH (7.350-7.450) pH Units ABG pO2 (80.0-90.0) mm Hg ABG HCO3 (20.0-26.0) mmol/L ABG Base Excess (-2.0-3.0) mmol/L ABG Hemoglobin (14.0-18.0) gm/dl Sodium (137-145) mmol/L Potassium (3.6-5.0) mmol/L Chloride (98-107) mmol/L Carbon Dioxide (22-30) mmol/L BUN (9-20) mg/dL Creatinine (0.8-1.5) mg/dL Glucose (75-100) mg/dL POC Glucose 181 H 136 H 114 H (70-105) Calcium (8.4-10.2) mg/dL Phosphorus (2.5-4.5) mg/dL Magnesium (1.7-2.3) mg/dL 02/09/20 02/09/20 02/09/20 Range/Units 04:18 05:27 06:38 ABG pH (7.350-7.450) pH Units ABG pO2 (80.0-90.0) mm Hg ABG HCO3 (20.0-26.0) mmol/L ABG Base Excess (-2.0-3.0) mmol/L ABG Hemoglobin (14.0-18.0) gm/dl Sodium (137-145) mmol/L Potassium 3.5 L (3.6-5.0) mmol/L Chloride 117.0 H (98-107) mmol/L Carbon Dioxide 19 L (22-30) mmol/L BUN 27 H (9-20) mg/dL Creatinine (0.8-1.5) mg/dL Glucose 113 H (75-100) mg/dL POC Glucose 151 H 127 H (70-105) Calcium 8.2 L (8.4-10.2) mg/dL Phosphorus (2.5-4.5) mg/dL Magnesium (1.7-2.3) mg/dL 02/09/20 02/09/20 02/09/20 Range/Units 08:14 08:45 12:34 ABG pH (7.350-7.450) pH Units ABG pO2 (80.0-90.0) mm Hg ABG HCO3 (20.0-26.0) mmol/L ABG Base Excess (-2.0-3.0) mmol/L ABG Hemoglobin (14.0-18.0) gm/dl Sodium (137-145) mmol/L Potassium (3.6-5.0) mmol/L Chloride 114.3 H (98-107) mmol/L Carbon Dioxide 16 L (22-30) mmol/L BUN 22 H (9-20) mg/dL Creatinine (0.8-1.5) mg/dL Glucose 225 H (75-100) mg/dL POC Glucose 140 H 255 H (70-105) Calcium 8.1 L (8.4-10.2) mg/dL Phosphorus (2.5-4.5) mg/dL Magnesium (1.7-2.3) mg/dL 02/09/20 02/09/20 Range/Units 15:49 Unknown ABG pH 7.323 L (7.350-7.450) pH Units ABG pO2 164.8 H (80.0-90.0) mm Hg ABG HCO3 19.7 L (20.0-26.0) mmol/L ABG Base Excess -5.9 L (-2.0-3.0) mmol/L ABG Hemoglobin 13.6 L (14.0-18.0) gm/dl Sodium 146 H (137-145) mmol/L Potassium (3.6-5.0) mmol/L Chloride 117.1 H (98-107) mmol/L Carbon Dioxide 19 L (22-30) mmol/L BUN (9-20) mg/dL Creatinine (0.8-1.5) mg/dL Glucose 242 H (75-100) mg/dL POC Glucose (70-105) Calcium 8.2 L (8.4-10.2) mg/dL Phosphorus (2.5-4.5) mg/dL Magnesium (1.7-2.3) mg/dL - Imaging and Cardiology Chest x-ray: report reviewed, image reviewed (no pneumonia seen. ET tube +) Assessment and Plan Cultures: 02/08/2020 urine culture: In process 02/08/2020 blood culture: No growth in 24 hours A/P: 74-year-old male with hypertension was brought into the emergency room yesterday with altered mental status: #Sepsis: source unclear. ?UTI given evidence of pyuria. SIRS from DKA possible. #Acidosis: DKA, lactate elevated on admission. #SOURAV: Creatinine improving. #Diabetes mellitus, uncontrolled. #Acute encephalopathy Recs: Continue empiric cefepime and vancomycin for now Follow-up cultures Trisha Null MD, FACP [facility] C: [phone] O: [phone] F: [phone]
[2020-02-09 16:54] LABS: ABG Base Excess -5.1 mmol/L (-2.0-3.0); ABG HCO3 19.9 mmol/L (20.0-26.0); ABG Methemoglobin 0.7 % (0.0-1.5); ABG Oxygen Saturation 98.3 % (95.0-99.0); ABG PCO2 37.8 mm Hg; ABG PH 7.34 pH Units (7.350-7.450); ABG PO2 123.9 mm Hg (80.0-90.0)
[2020-02-09] MEDS ORDERED: INSULIN REGULAR, HUMAN 100 UNITS/1 ML SUB-Q ONE (17:10)
--- NOTE | 2020-02-09 17:11 | Progress Note ---
Assessment and Plan Assessment and plan: Patient currently intubated history obtained from ED documentation patient is 74-year-old male with history of hypertension. Patient brought to the emergency room via EMS from home for evaluation of altered mental status and decreased responsiveness. EMS stated that patient stated that last time he was normal was 9 PM when he went to bed. denied any history of seizure. She also denied any history of previous stroke. She also informed EMS that he did not have any fever or chills recently. Stroke protocol immediately initiated and patient moved to CT for stat CT brain. Upon return from the CT patient became more obtunded, patient is unable to maintain his airway. Patient immediately intubated by me using a glide scope with ET tube confirmation by direct visualization, capnometry and good breath sounds on both side. Sepsis protocol also initiated for possible sepsis. * On arrival to the hospital patient was noted to have a blood sugar of over 800. Acute hypoxic respiratory failure Hyperosmotic hyperglycemic nonketotic state versus DKA Sepsis possible acute cystitis rule out COVID Acute metabolic encephalopathy Metabolic acidosis Plan Continue supportive care vent management per veterinary x ray operator Neurology input noted ID input noted Await further imaging studies including MRI when stable Renal function is improving at this point Adjust insulin therapy Continue antibiotics as dictated by ID Precautions per [facility] protocol DVT and GI prophylaxis Critical care time 35 minutes History Interval history: Patient seen and examined remains on full mechanical ventilation. No other acute issues reported to me overnight. Hospitalist Physical - Physical exam Narrative exam: VITAL SIGNS: Reviewed. GENERAL: The patient appears normally developed, otherwise critically ill in mechanical ventilation vital signs as documented. HEAD: No signs of head trauma. EYES: Pupils are equal. EARS: Unable to examine. MOUTH: ET tube in place NECK: No adenopathy, no JVD. CHEST: Chest with diminished breath sounds bilaterally. No wheezes, rales, or rhonchi. CARDIAC: Regular rate and rhythm. S1 and S2, without murmurs, gallops, or rubs. VASCULAR: No Edema. Peripheral pulses normal and equal in all extremities. ABDOMEN: Soft, non distended. No rebound or guarding, and no masses palpated. Bowel Sounds normal. MUSCULOSKELETAL: Extremities without clubbing, cyanosis or edema. NEUROLOGIC EXAM: Sedated unable to examine PSYCHIATRIC: Sedated SKIN: detial exam as documented in skin assessment - Constitutional Vitals: Temp Pulse Resp BP Pulse Ox 98.8 F 112 H 14 138/83 100 02/09/20 12:00 02/09/20 16:35 02/09/20 13:15 02/09/20 16:35 02/09/20 16:35 Results - Labs CBC & Chem 7: 02/08/20 09:55 02/09/20 15:49 Labs: Laboratory Last Values WBC 21.0 K/mm3 (4.5-11.0) H 02/08/20 09:55 RBC 5.59 M/mm3 (3.65-5.03) H 02/08/20 09:55 Hgb 16.0 gm/dl (11.8-15.2) H 02/08/20 09:55 Hct 50.0 % (35.5-45.6) H 02/08/20 09:55 MCV 90 fl (84-94) 02/08/20 09:55 MCH 29 pg (28-32) 02/08/20 09:55 MCHC 32 % (32-34) 02/08/20 09:55 RDW 14.1 % (13.2-15.2) 02/08/20 09:55 Plt Count 197 K/mm3 (140-440) 02/08/20 09:55 Lymph % (Auto) Yard Person 02/08/20 09:55 [place] % (Auto) Yard Person 02/08/20 09:55 Eos % (Auto) Yard Person 02/08/20 09:55 Baso % (Auto) Yard Person 02/08/20 09:55 Lymph # Yard Person 02/08/20 09:55 [place] # Yard Person 02/08/20 09:55 Eos # Yard Person 02/08/20 09:55 Baso # Yard Person 02/08/20 09:55 Add Manual Diff Complete 02/08/20 09:55 Total Counted 100 02/08/20 09:55 Seg Neutrophils % Yard Person 02/08/20 09:55 Seg Neuts % (Manual) 94.0 % (40.0-70.0) H 02/08/20 09:55 Band Neutrophils % 0 % 02/08/20 09:55 Lymphocytes % (Manual) 2.0 % (13.4-35.0) L 02/08/20 09:55 Reactive Lymphs % (Man) 0 % 02/08/20 09:55 Monocytes % (Manual) 4.0 % (0.0-7.3) 02/08/20 09:55 Eosinophils % (Manual) 0 % (0.0-4.3) 02/08/20 09:55 Basophils % (Manual) 0 % (0.0-1.8) 02/08/20 09:55 Metamyelocytes % 0 % 02/08/20 09:55 Myelocytes % 0 % 02/08/20 09:55 Promyelocytes % 0 % 02/08/20 09:55 Blast Cells % 0 % 02/08/20 09:55 Nucleated RBC % 1.0 % (0.0-0.9) H 02/08/20 09:55 Seg Neutrophils # Yard Person 02/08/20 09:55 Seg Neutrophils # Man 19.7 K/mm3 (1.8-7.7) H 02/08/20 09:55 Band Neutrophils # 0.0 K/mm3 02/08/20 09:55 Lymphocytes # (Manual) 0.4 K/mm3 (1.2-5.4) L 02/08/20 09:55 Abs React Lymphs (Man) 0.0 K/mm3 02/08/20 09:55 Monocytes # (Manual) 0.8 K/mm3 (0.0-0.8) 02/08/20 09:55 Eosinophils # (Manual) 0.0 K/mm3 (0.0-0.4) 02/08/20 09:55 Basophils # (Manual) 0.0 K/mm3 (0.0-0.1) 02/08/20 09:55 Metamyelocytes # 0.0 K/mm3 02/08/20 09:55 Myelocytes # 0.0 K/mm3 02/08/20 09:55 Promyelocytes # 0.0 K/mm3 02/08/20 09:55 Blast Cells # 0.0 K/mm3 02/08/20 09:55 WBC Morphology Not Reportable 02/08/20 09:55 Hypersegmented Neuts Not Reportable 02/08/20 09:55 Hyposegmented Neuts Not Reportable 02/08/20 09:55 Hypogranular Neuts Not Reportable 02/08/20 09:55 Smudge Cells Not Reportable 02/08/20 09:55 Toxic Granulation Not Reportable 02/08/20 09:55 Toxic Vacuolation Not Reportable 02/08/20 09:55 Dohle Bodies Not Reportable 02/08/20 09:55 Pelger-Huet Anomaly Not Reportable 02/08/20 09:55 Tanner Rods Not Reportable 02/08/20 09:55 Platelet Estimate Consistent w auto 02/08/20 09:55 Clumped Platelets Not Reportable 02/08/20 09:55 Plt Clumps, EDTA Not Reportable 02/08/20 09:55 Large Platelets Rare 02/08/20 09:55 Giant Platelets Not Reportable 02/08/20 09:55 Platelet Satelliting Not Reportable 02/08/20 09:55 Plt Morphology Comment Not Reportable 02/08/20 09:55 RBC Morphology Normal 02/08/20 09:55 Dimorphic RBCs Not Reportable 02/08/20 09:55 Polychromasia Not Reportable 02/08/20 09:55 Hypochromasia Not Reportable 02/08/20 09:55 Poikilocytosis Not Reportable 02/08/20 09:55 Anisocytosis Not Reportable 02/08/20 09:55 Microcytosis Not Reportable 02/08/20 09:55 Macrocytosis Not Reportable 02/08/20 09:55 Spherocytes Not Reportable 02/08/20 09:55 Pappenheimer Bodies Not Reportable 02/08/20 09:55 Sickle Cells Not Reportable 02/08/20 09:55 Target Cells Not Reportable 02/08/20 09:55 Tear Drop Cells Not Reportable 02/08/20 09:55 Ovalocytes Not Reportable 02/08/20 09:55 Helmet Cells Not Reportable 02/08/20 09:55 Zavala-Blackstone Bodies Not Reportable 02/08/20 09:55 [place] Rings Not Reportable 02/08/20 09:55 [place] Cells Not Reportable 02/08/20 09:55 Bite Cells Not Reportable 02/08/20 09:55 Crenated Cell Not Reportable 02/08/20 09:55 Elliptocytes Not Reportable 02/08/20 09:55 Acanthocytes (Spur) Not Reportable 02/08/20 09:55 Rouleaux Not Reportable 02/08/20 09:55 Hemoglobin C Crystals Not Reportable 02/08/20 09:55 Schistocytes Not Reportable 02/08/20 09:55 Malaria parasites Not Reportable 02/08/20 09:55 Clement Bodies Not Reportable 02/08/20 09:55 Hem Pathologist Commnt No 02/08/20 09:55 PT 13.5 Sec. (12.2-14.9) 02/08/20 09:55 INR 1.02 (0.87-1.13) 02/08/20 09:55 APTT 23.2 Sec. (24.2-36.6) L 02/08/20 09:55 Thrombin Time 18.6 Sec. (15.1-19.6) 02/08/20 09:55 D-Dimer 299.15 ng/mlDDU (0-234) H 02/08/20 09:55 ABG pH 7.323 pH Units (7.350-7.450) L 02/09/20 Unknown ABG pCO2 38.8 mm Hg 02/09/20 Unknown ABG pO2 164.8 mm Hg (80.0-90.0) H 02/09/20 Unknown ABG HCO3 19.7 mmol/L (20.0-26.0) L 02/09/20 Unknown ABG O2 Saturation 98.9 % (95.0-99.0) 02/09/20 Unknown ABG O2 Content 19.0 (0.0-44) 02/09/20 Unknown ABG Base Excess -5.9 mmol/L (-2.0-3.0) L 02/09/20 Unknown ABG Hemoglobin 13.6 gm/dl (14.0-18.0) L 02/09/20 Unknown ABG Carboxyhemoglobin 1.0 % (0.0-5.0) 02/09/20 Unknown ABG Methemoglobin 0.6 % (0.0-1.5) 02/09/20 Unknown Oxyhemoglobin 97.3 % (95.0-99.0) 02/09/20 Unknown FiO2 45 % 02/09/20 Unknown Sodium 146 mmol/L (137-145) H 02/09/20 15:49 Potassium 3.8 mmol/L (3.6-5.0) 02/09/20 15:49 Chloride 117.1 mmol/L (98-107) H 02/09/20 15:49 Carbon Dioxide 19 mmol/L (22-30) L 02/09/20 15:49 Anion Gap 14 mmol/L 02/09/20 15:49 BUN 20 mg/dL (9-20) 02/09/20 15:49 Creatinine 1.2 mg/dL (0.8-1.5) 02/09/20 15:49 Estimated GFR 59 ml/min 02/09/20 15:49 BUN/Creatinine Ratio 17 % 02/09/20 15:49 Glucose 242 mg/dL (75-100) H 02/09/20 15:49 POC Glucose 255 (70-105) H 02/09/20 12:34 Lactic Acid 1.60 mmol/L (0.7-2.0) 02/08/20 13:55 Calcium 8.2 mg/dL (8.4-10.2) L 02/09/20 15:49 Phosphorus 2.20 mg/dL (2.5-4.5) L D 02/08/20 18:10 Magnesium 2.40 mg/dL (1.7-2.3) H 02/08/20 18:10 Ferritin 861.7 ng/mL (13.0-400.0) H 02/08/20 09:55 Total Bilirubin 0.30 mg/dL (0.1-1.2) 02/08/20 09:55 Direct Bilirubin < 0.2 mg/dL (0-0.2) 02/08/20 09:55 Indirect Bilirubin 0.1 mg/dL 02/08/20 09:55 AST 13 units/L (5-40) 02/08/20 09:55 ALT 19 units/L (7-56) 02/08/20 09:55 Alkaline Phosphatase 85 units/L (35-129) 02/08/20 09:55 Lactate Dehydrogenase 140 units/L (91-180) 02/08/20 09:55 Total Creatine Kinase 69 units/L (55-170) 02/08/20 09:55 CK-MB (CK-2) 1.2 ng/mL (0.0-4.0) 02/08/20 09:55 CK-MB (CK-2) Rel Index 1.7 (0-4) 02/08/20 09:55 Troponin T < 0.010 ng/mL (0.00-0.029) 02/08/20 09:55 Troponin T < 0.010 ng/mL (0.00-0.029) 02/08/20 09:55 C-Reactive Protein 0.30 mg/dL (0.00-1.30) 02/08/20 09:55 Total Protein 5.9 g/dL (6.3-8.2) L 02/08/20 09:55 Albumin 3.5 g/dL (3.9-5) L 02/08/20 09:55 Albumin/Globulin Ratio 1.5 % 02/08/20 09:55 Procalcitonin < 0.05 ng/mL (<0.15) 02/08/20 09:55 Urine Color Yellow (Yellow) 02/08/20 11:36 Urine Turbidity Slightly-cloudy (Clear) 02/08/20 11:36 Urine pH 5.0 (5.0-7.0) 02/08/20 11:36 Ur Specific [place] 1.024 (1.003-1.030) 02/08/20 11:36 Urine Protein <15 mg/dl mg/dL (Negative) 02/08/20 11:36 Urine Glucose (UA) >=500 mg/dL (Negative) 02/08/20 11:36 Urine Ketones Tr mg/dL (Negative) 02/08/20 11:36 Urine Blood Mod (Negative) 02/08/20 11:36 Urine Nitrite Pos (Negative) 02/08/20 11:36 Urine Bilirubin Neg (Negative) 02/08/20 11:36 Urine Urobilinogen < 2.0 mg/dL (<2.0) 02/08/20 11:36 Ur Leukocyte Esterase Sm (Negative) 02/08/20 11:36 Urine WBC (Auto) 65.0 /HPF (0.0-6.0) H 02/08/20 11:36 Urine RBC (Auto) 15.0 /HPF (0.0-6.0) 02/08/20 11:36 Urine Bacteria (Auto) 1+ /HPF (Negative) 02/08/20 11:36 Urine Yeast (Budding) 2+ /HPF 02/08/20 11:36 Urine Opiates Screen Presumptive negative 02/08/20 11:36 Urine Methadone Screen Presumptive negative 02/08/20 11:36 Ur Barbiturates Screen Presumptive negative 02/08/20 11:36 Ur Phencyclidine Scrn Presumptive negative 02/08/20 11:36 Ur Amphetamines Screen Presumptive negative 02/08/20 11:36 U Benzodiazepines Scrn Presumptive negative 02/08/20 11:36 Urine Cocaine Screen Presumptive negative 02/08/20 11:36 U Marijuana (THC) Screen Presumptive negative 02/08/20 11:36 Drugs of Abuse Note Disclamer 02/08/20 11:36 Plasma/Serum Alcohol < 0.01 % (0-0.07) 02/08/20 09:55 Microbiology: Microbiology 02/08/20 11:36 Urine,Clean Catch Urine Culture - Preliminary 02/08/20 Unknown Peripheral/Venous Blood Culture - Preliminary NO GROWTH AFTER 24 HOURS 02/08/20 Unknown Peripheral/Venous Blood Culture - Preliminary NO GROWTH AFTER 24 HOURS Torres/IV: IV Catheter Type [Right INT / Saline Lock Antecubital] Active Medications - Current Medications Current Medications: Generic Name Dose Route Start Last Admin Trade Name Freq PRN Reason Stop Dose Admin Lipase/Protease/Amylase 1 each 02/08/20 16:[address] 10,500 Unit FEEDTUBE PRN PRN For Clogged Feeding Tube Dextrose 50 ml 02/09/20 08:30 D50w (25gm) Syringe IV Q30MIN PRN Hypoglycemia Protocol Famotidine 20 mg 02/09/20 10:00 02/09/20 11:43 Pepcid IV 20 mg BID UBALDO Administration Heparin Sodium (Porcine) 5,000 unit 02/09/20 10:00 02/09/20 11:43 Heparin SUB-Q 5,000 unit Q12HR UBALDO Administration Hydromorphone HCl 0.5 mg 02/08/20 16:27 Dilaudid IV Q3H PRN Pain , Severe (7-10) Hydrophilic Ointment 1 applic 02/08/20 11:37 Vaseline Lip Therapy TP Q2HR PRN Dry Lips Fentanyl Citrate 2,000 mcg in 100 mls @ 4.375 mls/hr 02/08/20 12:00 02/09/20 15:13 Fentanyl Drip Premix IV 2 mcg/kg/hr TITR UBALDO 8.75 mls/hr Administration Protocol 1 MCG/KG/HR Propofol 1,000 mg in 100 mls @ 2.625 mls/hr 02/08/20 12:00 02/09/20 12:40 Diprivan 10 Mg/Ml IV 15 mcg/kg/min TITR UBALDO 7.875 mls/hr Titration Protocol 5 MCG/KG/MIN Cefepime HCl 2 gm in 100 mls @ 200 mls/hr 02/08/20 22:00 02/09/20 11:42 Cefepime/Ns 2 Gm/100 Ml IV 200 mls/hr Q12HR UBALDO Administration Protocol Vancomycin HCl 1,250 mg/ 275 mls @ 166.667 mls/hr 02/09/20 18:00 Sodium Chloride IV Q24H UBALDO Dextrose/Sodium Chloride 1,000 mls @ 100 mls/hr 02/09/20 11:00 02/09/20 12:46 D5ns IV 100 mls/hr DIRECT UBALDO Administration Insulin Glargine 16 units 02/09/20 22:00 Lantus SUB-Q QHS UBALDO Insulin Human Lispro 0 unit 02/09/20 12:00 02/09/20 13:45 Humalog SUB-Q 6 unit Q6HR UBALDO Administration Protocol Insulin Human Regular 10 units 02/09/20 17:10 Humulin R SUB-Q 02/09/20 17:11 ONCE ONE Morphine Sulfate 2 mg 02/08/20 16:27 Morphine IV Q4H PRN Pain, Moderate (4-6) Multi-Ingred Cream/Lotion/Oil/Oint 1 applic 02/08/20 11:37 Artificial Tears Ophth Oint OU Q4HR PRN Dry Eye(s) Simple Syrup 15 ml 02/08/20 16:27 Simple Syrup FEEDTUBE PRN PRN Hypoglycemia Simple Syrup 30 ml 02/08/20 16:27 Simple Syrup FEEDTUBE PRN PRN Hypoglycemia Sodium Bicarbonate 325 mg 02/08/20 16:27 Sodium Bicarbonate FEEDTUBE PRN PRN For Clogged Feeding Tube Sodium Chloride 10 ml 02/08/20 22:00 02/09/20 11:44 Sodium Chloride Flush Syringe 10 Ml IV 10 ml BID UBALDO Administration Sodium Chloride 10 ml 02/08/20 16:27 Sodium Chloride Flush Syringe 10 Ml IV PRN PRN LINE FLUSH Nutrition/Malnutrition Assess - Dietary Evaluation Nutrition/Malnutrition Findings: Nutrition Notes Start: 02/09/20 07:55 Freq: Status: Active Protocol: Document 02/09/20 07:55 LP (Rec: 02/09/20 08:00 LP [id number]) Nutrition Notes Need for Assessment generated from: MD Order Initial or Follow up Assessment Current Diagnosis Diabetes,Sepsis,Hypertension Other Pertinent Diagnosis AMS, DKA Current Diet NPO Labs/Tests K 3.5 BUN 27 BG 113 Pertinent Medications D5NS at 125ml/hr Insulin drip LCL 40mEq Propofol 5.25ml/hr Height 5 ft 10 in Weight 87.5 kg [place] Body Weight (kg) 75.45 BMI 27.6 Weight Status Overweight Subjective/Other Information Consult for TF. Pt in ED on vent. Noted NGT to suction yesterday. Burn Absent Trauma Absent Minimum of two criteria No physical signs of malnutrition #1 Nutrition Diagnosis Inadequate oral intake Etiology vent As Evidenced by Signs and Symptoms Pt unable to consume PO Is patient on ventilator? Yes Is Patient Ambulatory and/or Out of Bed No REE-([facility] [place]-confined to bed) [phone] Calculation Used for Recommendations [facility] Additional Notes Protein needs are 105-175g (1. 2-2g/kg) Fluid needs are 1ml/kcal Nutrition Intervention Change Diet Order: TF Nutrition Support: Vital 1.2 at 65ml/hr Flush with 100ml q4h Kcal 1,872 Protein (gm) 117 Fluid (mL) 1,260 Goal #1 Meet at least 80% of kcal and protein needs via TF Anticipated Discharge Needs: Unable to determine at this time Follow-Up By: 02/11/20 Additional Comments Follow for TF start/tolerance
[2020-02-09] MEDS ORDERED: INSULIN REGULAR, HUMAN 100 UNITS/1 ML ONE (17:27)
[2020-02-09] MEDS ORDERED: VANCOMYCIN 1,250 MG in SODIUM CHLORIDE 0.9% 250ML 250 ML IV SCH (18:00)
[2020-02-09] MEDS: INSULIN GLARGINE 100 UNITS/ML SUB-Q SCH (22:26)
[2020-02-10] MEDS: INSULIN LISPRO 100 UNIT/ML SUB-Q SCH ×4 (00:33→17:57)
[2020-02-10] MEDS: D5W/0.9% NACL 1,000 ML IV SCH ×2 (00:41→11:52)
[2020-02-10] MEDS: fentaNYL DRIP Premix 2,000 MCG/100 ML BAG IV SCH ×2 (01:21→08:22)
--- NOTE | 2020-02-10 03:56 | XRay Report ---
CHEST 1 VIEW 02/10/2020 2:45 AM INDICATION / CLINICAL INFORMATION: follow up respiratory failure. COMPARISON: 02/09/20 FINDINGS: SUPPORT DEVICES: Unchanged. HEART / MEDIASTINUM: Stable. LUNGS / PLEURA: No significant pulmonary or pleural abnormality. No pneumothorax. ADDITIONAL FINDINGS: No significant additional findings. IMPRESSION: 1. No significant change. Signer Name: Karon Batres MD Signed: 02/10/2020 3:52 AM Workstation Name: [email or web address]
[2020-02-10 04:12] LABS: ABG Base Excess -4.8 mmol/L (-2.0-3.0); ABG HCO3 21.3 mmol/L (20.0-26.0); ABG Methemoglobin 0.7 % (0.0-1.5); ABG Oxygen Saturation 97.8 % (95.0-99.0); ABG PCO2 43.3 mm Hg; ABG PH 7.31 pH Units (7.350-7.450); ABG PO2 112.8 mm Hg (80.0-90.0)
[2020-02-10 04:33] LABS: Hematocrit 39.6 % (35.5-45.6); Hemoglobin 13.2 gm/dl (11.8-15.2); Mean Corpuscular HGB Conc 33 % (32-34); Mean Corpuscular Volume 87 fl (84-94); Platelet Count 144 K/mm3 (140-440); Red Blood Count 4.53 M/mm3 (3.65-5.03); Red Cell Distribution Width 14.5 % (13.2-15.2)
[2020-02-10 04:57] LABS: Calcium 8.1 mg/dL (8.4-10.2)
[2020-02-10] MEDS: HEPARIN 5,000 UNIT/1 ML VIAL SUB-Q SCH ×2 (09:18→22:31)
[2020-02-10] MEDS: CEFEPIME/NS 2 GM/100 ML 2 GM/100 ML BAG IV SCH (09:18)
[2020-02-10] MEDS: FAMOTIDINE 20 MG/2 ML INJ IV SCH ×2 (09:22→22:33)
--- NOTE | 2020-02-10 10:59 | Progress Note ---
Assessment and Plan Cultures: 02/08/2020 urine culture: ?normal skin carlito 02/08/2020 blood culture: No growth in 24 hours A/P: 74-year-old male with hypertension was brought into the emergency room yesterday with altered mental status: #Sepsis: source unclear. ?UTI given evidence of pyuria. SIRS from DKA possible. #Acidosis: DKA, lactate elevated on admission. #SOURAV: Creatinine improving. #Diabetes mellitus, uncontrolled. #Acute encephalopathy Recs: abx de-escalated to IV Ceftriaxone 1 gm daily Trisha Null MD, FACP [facility] ([facility] C: [phone] O: [phone] F: [phone] Subjective Date of service: 02/10/20 Interval history: No fever. Remains on the vent, minimal requirements. Off pressors. Objective - Exam Narrative Exam: Physical Exam: Constitutional: sedated, intubated, on the vent Head, Ears, Nose: Normocephalic, atraumatic. External ears, nose normal Eyes: Conjunctivae/corneas clear. No icterus. No ptosis. Neck: intubated Oral: intubated Cardiovascular: S1, S2 + Respiratory: AE fair bilaterally and equal GI: Soft, bowel sounds + Musculoskeletal: No pedal edema, no cyanosis. Skin: No rash or abscess Hem/Lymphatic: No palpable cervical or supraclavicular nodes. No lymphangitis Psych: no agitation Neurological: sedated, intubated, on the vent, exam limited - Constitutional Vitals: Vital Signs Temp Pulse Resp BP Pulse Ox 99.7 F H 85 14 115/55 98 02/10/20 04:00 02/10/20 09:30 02/10/20 09:30 02/10/20 09:30 02/10/20 09:30 Temperature -Last 24 Hours Temperature 99.7 F Temperature 99.8 F Temperature 99.8 F Temperature 98.8 F - Labs CBC & Chem 7: 02/10/20 04:01 02/10/20 04:01 Labs: Abnormal lab results 02/09/20 02/09/20 02/09/20 Range/Units 08:14 08:45 12:34 ABG pH (7.350-7.450) pH Units ABG pO2 (80.0-90.0) mm Hg ABG HCO3 (20.0-26.0) mmol/L ABG Base Excess (-2.0-3.0) mmol/L ABG Hemoglobin (14.0-18.0) gm/dl Sodium (137-145) mmol/L Chloride 114.3 H (98-107) mmol/L Carbon Dioxide 16 L (22-30) mmol/L BUN 22 H (9-20) mg/dL Glucose 225 H (75-100) mg/dL POC Glucose 140 H 255 H (70-105) Calcium 8.1 L (8.4-10.2) mg/dL 02/09/20 02/09/20 02/09/20 Range/Units 15:49 16:35 17:25 ABG pH 7.340 L (7.350-7.450) pH Units ABG pO2 123.9 H (80.0-90.0) mm Hg ABG HCO3 19.9 L (20.0-26.0) mmol/L ABG Base Excess -5.1 L (-2.0-3.0) mmol/L ABG Hemoglobin (14.0-18.0) gm/dl Sodium 146 H (137-145) mmol/L Chloride 117.1 H (98-107) mmol/L Carbon Dioxide 19 L (22-30) mmol/L BUN (9-20) mg/dL Glucose 242 H (75-100) mg/dL POC Glucose 192 H (70-105) Calcium 8.2 L (8.4-10.2) mg/dL 02/10/20 02/10/20 02/10/20 Range/Units 00:11 03:46 04:01 ABG pH 7.310 L (7.350-7.450) pH Units ABG pO2 112.8 H (80.0-90.0) mm Hg ABG HCO3 (20.0-26.0) mmol/L ABG Base Excess -4.8 L (-2.0-3.0) mmol/L ABG Hemoglobin 13.0 L (14.0-18.0) gm/dl Sodium 149 H (137-145) mmol/L Chloride 121.2 H (98-107) mmol/L Carbon Dioxide 19 L (22-30) mmol/L BUN (9-20) mg/dL Glucose 184 H (75-100) mg/dL POC Glucose 156 H (70-105) Calcium 8.1 L (8.4-10.2) mg/dL 02/10/20 Range/Units 05:34 ABG pH (7.350-7.450) pH Units ABG pO2 (80.0-90.0) mm Hg ABG HCO3 (20.0-26.0) mmol/L ABG Base Excess (-2.0-3.0) mmol/L ABG Hemoglobin (14.0-18.0) gm/dl Sodium (137-145) mmol/L Chloride (98-107) mmol/L Carbon Dioxide (22-30) mmol/L BUN (9-20) mg/dL Glucose (75-100) mg/dL POC Glucose 214 H (70-105) Calcium (8.4-10.2) mg/dL
[2020-02-10] MEDS: cefTRIAXone/NS 1 GM/50 ML 1 GM/50 ML BAG IV SCH (11:52)
--- NOTE | 2020-02-10 14:36 | Progress Note ---
Assessment and Plan Acute hypoxemic respiratory failure on MVS Acute encephalopathy, toxic metabolic. Diabetic ketoacidosis, probably responsible for the acidosis. Systemic inflammatory response syndrome. Leukocytosis. Acute kidney injury. Severe metabolic acidosis. Mild hyperkalemia. Lactic acidosis. Oropharyngeal dysphagia. Urinary tract infection. HTN. - begin Daily SAT and SBT assessment as tolerated - VAP bundle addressed - continue lung protective strategies - continue bronchodilators with pulmonary hygiene per RT - wean per pulmonary driven protocols otherwise - accuchecks resumed with glycemic control per SSI (While critically ill target blood glucose of 140-180 mg/dL; avoid hypoglycemia) - sedation prn for target RASS 0 to -1 - continue to wean supplemental oxygen for target O2 sat's > 90% acutely - to avoid benzodiazepine's, reduce the possibility of delirium - prn analgesia per CPOT score - Maintenance of sleep-wake cycle, avoid delirium - continue enteral nutritional support at goal rate as tolerated - G.I. & VTE prophylaxis - PT/OT/ROM exercises - continue mobility protocols for pressure ulcer prophylaxis - Monitor hemodynamics closely - continue other care per attending / other consultants - discharge planning ongoing concurrently .... Re-evaluate in am & prn CONDITION: CRITICAL PROGNOSIS: GUARDED CODE STATUS: FULL CODE The high probability of a clinically significant, sudden or life-threatening deterioration of the [respiratory, endocrine and neurologic] system(s) required my full and direct attention, intervention and personal management. The aggregate critical care time was [33] minutes without overlap. Time includes spent on; [x] Data Review and interpretation [x] Patient assessment and monitoring of vital signs [x] Documentation [x] Medication orders and management Subjective Date of service: 02/10/20 Principal diagnosis: Acute hypoxemic resp failure; Ac. encephalopathy; DKA; SIR S; SOURAV Interval history: Patient is seen today for: Acute hypoxemic respiratory failure; Acute encephalopathy; DKA; SIRS; SOURAV Seen and examined at bedside; 24hour events reviewed; nursing and respiratory care staff consulted; no adverse overnight events reported to me; remains on MVS; off IV insulin drip; tolerated bedsider SBT very well; remains lethargic Objective Vital Signs - 12hr 02/10/20 02/10/20 02/10/20 02:45 03:00 03:15 Temperature Pulse Rate 97 H 87 86 Pulse Rate [ From Monitor] Respiratory 12 17 16 Rate Blood Pressure 109/63 110/52 106/51 O2 Sat by Pulse 98 Oximetry 02/10/20 02/10/20 02/10/20 03:30 03:45 04:00 Temperature 99.7 F H Pulse Rate 87 89 88 Pulse Rate [ 89 From Monitor] Respiratory 15 14 16 Rate Blood Pressure 114/49 111/59 120/54 O2 Sat by Pulse 97 98 97 Oximetry 02/10/20 02/10/20 02/10/20 04:15 04:28 04:30 Temperature Pulse Rate 86 86 85 Pulse Rate [ From Monitor] Respiratory 15 15 Rate Blood Pressure 111/51 111/51 118/49 O2 Sat by Pulse 99 Oximetry 02/10/20 02/10/20 02/10/20 04:45 05:00 05:15 Temperature Pulse Rate 86 87 87 Pulse Rate [ From Monitor] Respiratory 15 15 16 Rate Blood Pressure 110/52 118/52 110/49 O2 Sat by Pulse 97 97 98 Oximetry 02/10/20 02/10/20 02/10/20 05:30 05:45 06:00 Temperature Pulse Rate 86 87 91 H Pulse Rate [ From Monitor] Respiratory 15 16 13 Rate Blood Pressure 112/52 122/55 131/59 O2 Sat by Pulse 97 98 Oximetry 02/10/20 02/10/20 02/10/20 06:15 06:30 06:45 Temperature Pulse Rate 88 86 84 Pulse Rate [ From Monitor] Respiratory 15 14 14 Rate Blood Pressure 116/52 108/50 117/52 O2 Sat by Pulse 97 97 98 Oximetry 02/10/20 02/10/20 02/10/20 07:00 07:15 07:24 Temperature Pulse Rate 84 85 88 Pulse Rate [ From Monitor] Respiratory 15 16 Rate Blood Pressure 115/48 115/55 116/52 O2 Sat by Pulse 97 97 97 Oximetry 02/10/20 02/10/20 02/10/20 07:30 07:45 08:00 Temperature 99 F Pulse Rate 85 87 92 H Pulse Rate [ From Monitor] Respiratory 15 14 14 Rate Blood Pressure 125/62 132/61 145/72 O2 Sat by Pulse 97 98 Oximetry 02/10/20 02/10/20 02/10/20 08:15 08:30 08:45 Temperature Pulse Rate 110 H 88 88 Pulse Rate [ From Monitor] Respiratory 21 12 13 Rate Blood Pressure 158/80 111/54 123/57 O2 Sat by Pulse 100 95 96 Oximetry 02/10/20 02/10/20 02/10/20 09:00 09:15 09:30 Temperature Pulse Rate 85 87 85 Pulse Rate [ From Monitor] Respiratory 13 13 14 Rate Blood Pressure 121/56 106/51 115/55 O2 Sat by Pulse 97 98 98 Oximetry 02/10/20 02/10/20 02/10/20 09:45 10:00 10:15 Temperature Pulse Rate 85 85 87 Pulse Rate [ From Monitor] Respiratory 13 14 14 Rate Blood Pressure 112/55 106/50 119/61 O2 Sat by Pulse 98 98 Oximetry 02/10/20 02/10/20 02/10/20 10:30 10:45 11:00 Temperature Pulse Rate 86 84 80 Pulse Rate [ From Monitor] Respiratory 14 13 14 Rate Blood Pressure 109/56 108/54 112/56 O2 Sat by Pulse 98 98 Oximetry 02/10/20 02/10/20 02/10/20 11:15 11:26 11:30 Temperature Pulse Rate 84 85 96 H Pulse Rate [ From Monitor] Respiratory 17 13 Rate Blood Pressure 113/56 115/55 127/64 O2 Sat by Pulse 98 99 Oximetry 02/10/20 02/10/20 02/10/20 11:45 12:00 12:15 Temperature Pulse Rate 89 91 H 86 Pulse Rate [ From Monitor] Respiratory 12 13 17 Rate Blood Pressure 150/75 125/61 117/61 O2 Sat by Pulse 98 98 98 Oximetry Constitutional: no acute distress, other (elderly looking CM, normocephalic with mildly increased resp effort on MVS) Eyes: non-icteric ENT: oropharynx moist, other (ETT 23 cm SANDY) Neck: supple, no lymphadenopathy, no JVD Effort: mildly labored Ascultation: Bilateral: diminished breath sounds, rhonchi Percussion: Bilateral: not dull Cardiovascular: regular rate and rhythm Gastrointestinal: normoactive bowel sounds, soft, non-tender, non-distended Integumentary: normal Extremities: no cyanosis, no edema, pink and warm, pulses normal Neurologic: non-focal exam (grossly), pupils equal and round, CN II-XII normal Psychiatric: other (unable to assess re: AMS) CBC and BMP: 02/13/20 04:20 02/13/20 04:20 ABG, PT/INR, D-dimer: ABG ABG pH 7.310 pH Units (7.350-7.450) L 02/10/20 03:46 ABG pCO2 43.3 mm Hg 02/10/20 03:46 ABG pO2 112.8 mm Hg (80.0-90.0) H 02/10/20 03:46 ABG O2 Saturation 97.8 % (95.0-99.0) 02/10/20 03:46 PT/INR, D-dimer PT 13.5 Sec. (12.2-14.9) 02/08/20 09:55 INR 1.02 (0.87-1.13) 02/08/20 09:55 D-Dimer 299.15 ng/mlDDU (0-234) H 02/08/20 09:55 Abnormal lab findings: Abnormal Labs 02/08/20 02/08/20 02/08/20 09:55 09:55 09:55 WBC 21.0 H RBC 5.59 H Hgb 16.0 H Hct 50.0 H Seg Neuts % (Manual) 94.0 H Lymphocytes % (Manual) 2.0 L Nucleated RBC % 1.0 H Seg Neutrophils # Man 19.7 H Lymphocytes # (Manual) 0.4 L APTT 23.2 L D-Dimer 299.15 H ABG pH ABG pO2 ABG HCO3 ABG O2 Saturation ABG Base Excess ABG Hemoglobin Sodium 128 L Potassium 5.1 H Chloride 91.4 L Carbon Dioxide 10 L BUN 38 H Creatinine 2.7 H Glucose 803 H* POC Glucose Lactic Acid Calcium Phosphorus Magnesium Ferritin Total Protein 5.9 L Albumin 3.5 L Urine WBC (Auto) 02/08/20 02/08/20 02/08/20 09:55 10:30 10:45 WBC RBC Hgb Hct Seg Neuts % (Manual) Lymphocytes % (Manual) Nucleated RBC % Seg Neutrophils # Man Lymphocytes # (Manual) APTT D-Dimer ABG pH 7.275 L ABG pO2 365.1 H ABG HCO3 17.4 L ABG O2 Saturation 99.5 H ABG Base Excess -8.7 L ABG Hemoglobin Sodium Potassium Chloride Carbon Dioxide BUN Creatinine Glucose POC Glucose Lactic Acid 6.10 H* Calcium Phosphorus Magnesium Ferritin 861.7 H Total Protein Albumin Urine WBC (Auto) 02/08/20 02/08/20 02/08/20 11:36 11:40 11:40 WBC RBC Hgb Hct Seg Neuts % (Manual) Lymphocytes % (Manual) Nucleated RBC % Seg Neutrophils # Man Lymphocytes # (Manual) APTT D-Dimer ABG pH ABG pO2 ABG HCO3 ABG O2 Saturation ABG Base Excess ABG Hemoglobin Sodium 130 L Potassium 5.1 H Chloride 91.5 L Carbon Dioxide 14 L BUN 38 H Creatinine 2.3 H Glucose 727 H* POC Glucose Lactic Acid Calcium Phosphorus Magnesium 2.70 H Ferritin Total Protein Albumin Urine WBC (Auto) 65.0 H 02/08/20 02/08/20 02/08/20 13:21 13:55 14:36 WBC RBC Hgb Hct Seg Neuts % (Manual) Lymphocytes % (Manual) Nucleated RBC % Seg Neutrophils # Man Lymphocytes # (Manual) APTT D-Dimer ABG pH ABG pO2 ABG HCO3 ABG O2 Saturation ABG Base Excess ABG Hemoglobin Sodium 135 L Potassium Chloride Carbon Dioxide 11 L BUN 34 H Creatinine 2.1 H Glucose 473 H POC Glucose > 500 H 342 H Lactic Acid Calcium 8.3 L Phosphorus Magnesium Ferritin Total Protein Albumin Urine WBC (Auto) 02/08/20 02/08/20 02/08/20 15:15 15:48 17:00 WBC RBC Hgb Hct Seg Neuts % (Manual) Lymphocytes % (Manual) Nucleated RBC % Seg Neutrophils # Man Lymphocytes # (Manual) APTT D-Dimer ABG pH ABG pO2 ABG HCO3 ABG O2 Saturation ABG Base Excess ABG Hemoglobin Sodium Potassium Chloride 108.8 H Carbon Dioxide 15 L BUN 34 H Creatinine 2.0 H Glucose 293 H POC Glucose 305 H 249 H Lactic Acid Calcium 8.1 L Phosphorus Magnesium Ferritin Total Protein Albumin Urine WBC (Auto) 02/08/20 02/08/20 02/08/20 18:10 18:10 18:39 WBC RBC Hgb Hct Seg Neuts % (Manual) Lymphocytes % (Manual) Nucleated RBC % Seg Neutrophils # Man Lymphocytes # (Manual) APTT D-Dimer ABG pH ABG pO2 ABG HCO3 ABG O2 Saturation ABG Base Excess ABG Hemoglobin Sodium Potassium Chloride 107.4 H Carbon Dioxide 16 L BUN 31 H Creatinine 2.1 H Glucose 216 H POC Glucose 204 H Lactic Acid Calcium Phosphorus 2.20 L D Magnesium 2.40 H Ferritin Total Protein Albumin Urine WBC (Auto) 02/08/20 02/08/20 02/08/20 19:52 21:34 23:25 WBC RBC Hgb Hct Seg Neuts % (Manual) Lymphocytes % (Manual) Nucleated RBC % Seg Neutrophils # Man Lymphocytes # (Manual) APTT D-Dimer ABG pH ABG pO2 ABG HCO3 ABG O2 Saturation ABG Base Excess ABG Hemoglobin Sodium Potassium Chloride Carbon Dioxide BUN Creatinine Glucose POC Glucose 239 H 209 H 187 H Lactic Acid Calcium Phosphorus Magnesium Ferritin Total Protein Albumin Urine WBC (Auto) 02/09/20 02/09/20 02/09/20 00:35 00:48 01:40 WBC RBC Hgb Hct Seg Neuts % (Manual) Lymphocytes % (Manual) Nucleated RBC % Seg Neutrophils # Man Lymphocytes # (Manual) APTT D-Dimer ABG pH ABG pO2 ABG HCO3 ABG O2 Saturation ABG Base Excess ABG Hemoglobin Sodium Potassium Chloride 114.9 H Carbon Dioxide 15 L BUN 28 H Creatinine Glucose 160 H POC Glucose 160 H 181 H Lactic Acid Calcium 8.0 L Phosphorus Magnesium Ferritin Total Protein Albumin Urine WBC (Auto) 02/09/20 02/09/20 02/09/20 03:04 04:14 04:18 WBC RBC Hgb Hct Seg Neuts % (Manual) Lymphocytes % (Manual) Nucleated RBC % Seg Neutrophils # Man Lymphocytes # (Manual) APTT D-Dimer ABG pH ABG pO2 ABG HCO3 ABG O2 Saturation ABG Base Excess ABG Hemoglobin Sodium Potassium 3.5 L Chloride 117.0 H Carbon Dioxide 19 L BUN 27 H Creatinine Glucose 113 H POC Glucose 136 H 114 H Lactic Acid Calcium 8.2 L Phosphorus Magnesium Ferritin Total Protein Albumin Urine WBC (Auto) 02/09/20 02/09/20 02/09/20 05:27 06:38 08:14 WBC RBC Hgb Hct Seg Neuts % (Manual) Lymphocytes % (Manual) Nucleated RBC % Seg Neutrophils # Man Lymphocytes # (Manual) APTT D-Dimer ABG pH ABG pO2 ABG HCO3 ABG O2 Saturation ABG Base Excess ABG Hemoglobin Sodium Potassium Chloride Carbon Dioxide BUN Creatinine Glucose POC Glucose 151 H 127 H 140 H Lactic Acid Calcium Phosphorus Magnesium Ferritin Total Protein Albumin Urine WBC (Auto) 02/09/20 02/09/20 02/09/20 08:45 12:34 15:49 WBC RBC Hgb Hct Seg Neuts % (Manual) Lymphocytes % (Manual) Nucleated RBC % Seg Neutrophils # Man Lymphocytes # (Manual) APTT D-Dimer ABG pH ABG pO2 ABG HCO3 ABG O2 Saturation ABG Base Excess ABG Hemoglobin Sodium 146 H Potassium Chloride 114.3 H 117.1 H Carbon Dioxide 16 L 19 L BUN 22 H Creatinine Glucose 225 H 242 H POC Glucose 255 H Lactic Acid Calcium 8.1 L 8.2 L Phosphorus Magnesium Ferritin Total Protein Albumin Urine WBC (Auto) 02/09/20 02/09/20 02/09/20 16:35 17:25 Unknown WBC RBC Hgb Hct Seg Neuts % (Manual) Lymphocytes % (Manual) Nucleated RBC % Seg Neutrophils # Man Lymphocytes # (Manual) APTT D-Dimer ABG pH 7.340 L 7.323 L ABG pO2 123.9 H 164.8 H ABG HCO3 19.9 L 19.7 L ABG O2 Saturation ABG Base Excess -5.1 L -5.9 L ABG Hemoglobin 13.6 L Sodium Potassium Chloride Carbon Dioxide BUN Creatinine Glucose POC Glucose 192 H Lactic Acid Calcium Phosphorus Magnesium Ferritin Total Protein Albumin Urine WBC (Auto) 02/10/20 02/10/20 02/10/20 00:11 03:46 04:01 WBC RBC Hgb Hct Seg Neuts % (Manual) Lymphocytes % (Manual) Nucleated RBC % Seg Neutrophils # Man Lymphocytes # (Manual) APTT D-Dimer ABG pH 7.310 L ABG pO2 112.8 H ABG HCO3 ABG O2 Saturation ABG Base Excess -4.8 L ABG Hemoglobin 13.0 L Sodium 149 H Potassium Chloride 121.2 H Carbon Dioxide 19 L BUN Creatinine Glucose 184 H POC Glucose 156 H Lactic Acid Calcium 8.1 L Phosphorus Magnesium Ferritin Total Protein Albumin Urine WBC (Auto) 02/10/20 02/10/20 05:34 11:38 WBC RBC Hgb Hct Seg Neuts % (Manual) Lymphocytes % (Manual) Nucleated RBC % Seg Neutrophils # Man Lymphocytes # (Manual) APTT D-Dimer ABG pH ABG pO2 ABG HCO3 ABG O2 Saturation ABG Base Excess ABG Hemoglobin Sodium Potassium Chloride Carbon Dioxide BUN Creatinine Glucose POC Glucose 214 H 225 H Lactic Acid Calcium Phosphorus Magnesium Ferritin Total Protein Albumin Urine WBC (Auto) Chest x-ray: image reviewed (ETT in good position) Allied health notes reviewed: nursing
--- NOTE | 2020-02-10 16:54 | Consultation ---
CONSULTING PHYSICIAN: Dr. Au. REASON FOR CONSULTATION: Acute hypoxemic respiratory failure, on mechanical ventilatory support; diabetic ketoacidosis. CHIEF COMPLAINT AND HISTORY OF PRESENT ILLNESS: The patient is a 74-year-old male with past medical history significant amongst other things for a diagnosis of hypertension, brought into the Emergency Room via EMS from home for evaluation of altered mental status. His said the last time he was normal, was a few hours. At that time, he went to bed. She denied any history of seizures. She denied any prior history of cerebrovascular injury. A stat CT of the brain was done, but the patient became more obtunded and required intubation for airway protection as well as sepsis. He was treated for sepsis via the sepsis protocol. After evaluation with Neurology, a decision was made not to give the patient TPA as he was not a candidate. Further evaluation subsequently revealed that the patient actually was in diabetic ketoacidosis and he was started on an insulin drip. We are asked to assist with management. When I stopped by to see him, he was resting in bed. He was not following any of my commands. I believe he was lightly sedated. I do not have any history of vomiting or overt aspiration. With regards to the patient's tobacco use/abuse history, that is unknown. The above is as much of the history of presentation as I have. PAST MEDICAL HISTORY: Hypertension. PAST SURGICAL HISTORY: Unknown. MEDICATIONS: He was on at the time I stopped by to see him were reviewed. Pertinent medications included the following: He was on Pepcid 20 mg IV b.i.d. He was on heparin 5000 units subQ q. 12, Dilaudid 0.5 mg IV q. 3 hours p.r.n. severe pain. He was on a fentanyl drip at 1 mcg/kg per hour. He was on Diprivan drip at 10 mcg/kg per minute, cefepime 2 g IV q. 12 hours, vancomycin 1.25 g IV q. 24 hours. He was on insulin drip, I believe at 2 units per hour. ALLERGIES: IODINE and IODINE-CONTAINING PRODUCTS. DIET: Well-built gentleman. Acute weight loss or gain history is unknown. FAMILY AND SOCIAL HISTORY: Apparently lived in the community at home. Alcohol, tobacco, illicit drug use or abuse history is unknown. Family history is otherwise unknown. REVIEW OF SYSTEMS: Unobtainable secondary to the patient's medical and mental condition. Since he has been in the Emergency Room, no seizures have been reported. No gross hematochezia or melena. No gross hematuria or dysuria. Review of systems again unobtainable or as in body of the history above. PHYSICAL EXAMINATION: VITAL SIGNS: On examination, he had a low-grade fever at presentation 99.7 degrees Fahrenheit with a pulse of 116, respiratory rate of 28. Blood pressure initially 89/53. At the time of my evaluation, blood pressure was 103/58. O2 sats were about 98% that was on the mechanical ventilation. At the time of my evaluation, assist/control, tidal volume is 450, rate of 16, and PEEP of 6 with 30% FiO2. GENERAL: Elderly looking male. Normocephalic, atraumatic, resting on mechanical ventilator without significant patient-ventilator dyssynchrony. HEAD, EYES, EARS, NOSE, AND THROAT: He was anicteric. He had mild conjunctival injection to the left eye. Endotracheal tube was taped at the lips around 23-24 cm. No gross jugular venous distention, no thyromegaly. Grossly, there were no palpable lymph nodes in the supraclavicular or submandibular lymph node chains. LUNGS: Auscultation of both lung vo was unremarkable. Good bilateral air movement, no wheezing. HEART: Heart sounds 1 and 2 are heard. They were regular in rate and rhythm at the time of my evaluation without overt rubs or murmurs. ABDOMEN: Soft, flat. Bowel sounds are positive, nontender, no palpable hepatosplenomegaly. EXTREMITIES: Without overt digital clubbing, no cyanosis, no pedal edema. He had some spontaneous movements to his extremities. NEUROLOGIC: Pupils were equal, round, about 2 mm, sluggishly reactive to light. Extraocular muscle movements could not be assessed. He did have spontaneous movements to pressure on his extremities. No spasticity, no fasciculations. He was sedated, but had some spontaneous movements. SKIN: Normal turgor in the areas evaluated without overt cellulitis or rash. Please see the registered nurse's notes for full description of the skin. PSYCHIATRIC: His mood and affect could not be assessed. LABORATORY DATA: From my review are as follows: Admission white cell count 21,000, hemoglobin 16.0, hematocrit 50.0, platelet count was 197, no band forms on the manual differential. INR was within normal limits. D-dimer slightly elevated at 299. Arterial blood gas initially showed a pH of 7.28, pCO2 of 38, pO2 of 365 that was on 100%. When I stopped by to see him, his ABG showed a pH of 7.34, pCO2 of 38, pO2 of 124 that was on 50% FiO2 and the above-mentioned vent settings with a rate of 16. At presentation, serum sodium was 130, potassium 5.1, chloride 92, bicarb 14, BUN 38, creatinine 2.3, glucose 727. Lactic acid level was 6.1. Magnesium 2.7. Liver function test within normal limits. CRP unremarkable. Troponin within normal limits. Procalcitonin unremarkable. Urinalysis showed positive for nitrites, 65 white cells per high-power field, and small leukocyte esterase. Urine drug screen was negative. Plasma alcohol level was less than 0.01. Blood cultures, no growth to date. IMAGING DATA: Chest x-ray showed clear lung vo, endotracheal tube tip was at the level of the clavicular heads, good position. No gross pneumothorax, no gross bony fracture. A CT of the head had been done at initial presentation, no acute intracranial abnormality. CT angios were also done of the head and neck. No significant abnormality of the neck on the angio and no significant abnormality of the CT angio of the head. ASSESSMENT: 1. Acute hypoxemic respiratory failure, on mechanical ventilatory support. 2. Acute encephalopathy, toxic metabolic. 3. Diabetic ketoacidosis, probably responsible for the acidosis. 4. Systemic inflammatory response syndrome. 5. Leukocytosis. 6. Acute kidney injury. 7. Severe metabolic acidosis. 8. Mild hyperkalemia. 9. Lactic acidosis. 10. Oropharyngeal dysphagia. 11. Urinary tract infection. 12. History of hypertension. PLAN: We will keep him on full mechanical ventilatory support. I will get an arterial blood gas and make changes after that as necessary. Oxygen will be weaned to keep sats greater than or equal to about 90%. He will be left on the diabetic ketoacidosis protocol, on IV insulin, transition to regular insulin once the anion gap has closed. Vasopressors will be started for mean arterial pressures that fall below 65 mmHg and not responsive to volume. Enteral nutrition will be the feeding modality of choice once he is able to take oral medications. I will defer to the Infectious Disease team for broad-spectrum antibiotic coverage. Anti-infectives will be deescalated based on results of clinical and microbiologic data. Sedation will be targeted to a RASS scale of 0 to -1. Again, he will be on GI and DVT prophylaxis. Flu and pneumonia vaccination will be addressed per protocol. Mobility protocols to prevent pressure ulcers will be instituted. Thank you very much for the consult. We will follow along and make further recommendations as picture progresses/becomes clearer. He is critically ill, on life-sustaining interventions including mechanical ventilatory support, at high risk of from cardiopulmonary system and endocrine system decompensation. At this time, I have spent about 35-40 minutes of critical care time without overlap and excluding any procedural time that may be necessary. JOB# [id number] SRIKANTH/JIMMY MOREAU
[2020-02-10 17:01] LABS: ABG Base Excess -7.1 mmol/L (-2.0-3.0); ABG HCO3 18.9 mmol/L (20.0-26.0); ABG Methemoglobin 0.7 % (0.0-1.5); ABG Oxygen Saturation 98.5 % (95.0-99.0); ABG PCO2 39.8 mm Hg; ABG PH 7.295 pH Units (7.350-7.450); ABG PO2 136.3 mm Hg (80.0-90.0)
--- NOTE | 2020-02-10 17:06 | Progress Note ---
Assessment and Plan Assessment and plan: Patient currently intubated history obtained from ED documentation patient is 74-year-old male with history of hypertension. Patient brought to the emergency room via EMS from home for evaluation of altered mental status and decreased responsiveness. EMS stated that patient stated that last time he was normal was 9 PM when he went to bed. denied any history of seizure. She also denied any history of previous stroke. She also informed EMS that he did not have any fever or chills recently. Stroke protocol immediately initiated and patient moved to CT for stat CT brain. Upon return from the CT patient became more obtunded, patient is unable to maintain his airway. Patient immediately intubated by me using a glide scope with ET tube confirmation by direct visualization, capnometry and good breath sounds on both side. Sepsis protocol also initiated for possible sepsis. * On arrival to the hospital patient was noted to have a blood sugar of over 800. * BG improved, still awaiting COVID19 Test Acute hypoxic respiratory failure Hyperosmotic hyperglycemic nonketotic state versus DKA Sepsis possible acute cystitis rule out COVID Acute metabolic encephalopathy Metabolic acidosis Hypernatremia Plan Continue supportive care vent management per expediter clerk Neurology input noted ID input noted Change fluids to D5W AND MONITOR SODIUM Await further imaging studies including MRI when stable Renal function is improving at this point Adjust insulin therapy Continue antibiotics as dictated by ID Precautions per [facility] protocol DVT and GI prophylaxis Critical care time 35 minutes History Interval history: Patient seen and examined remains on full mechanical ventilation. No other acute issues reported to me overnight. Hospitalist Physical - Physical exam Narrative exam: VITAL SIGNS: Reviewed. GENERAL: The patient appears normally developed, otherwise critically ill in mechanical ventilation vital signs as documented. HEAD: No signs of head trauma. EYES: Pupils are equal. EARS: Unable to examine. MOUTH: ET tube in place NECK: No adenopathy, no JVD. CHEST: Chest with diminished breath sounds bilaterally. No wheezes, rales, or rhonchi. CARDIAC: Regular rate and rhythm. S1 and S2, without murmurs, gallops, or rubs. VASCULAR: No Edema. Peripheral pulses normal and equal in all extremities. ABDOMEN: Soft, non distended. No rebound or guarding, and no masses palpated. Bowel Sounds normal. MUSCULOSKELETAL: Extremities without clubbing, cyanosis or edema. NEUROLOGIC EXAM: Sedated unable to examine PSYCHIATRIC: Sedated SKIN: detail exam as documented in skin assessment - Constitutional Vitals: Temp Pulse Resp BP Pulse Ox 98.1 F 110 H 15 168/75 96 02/10/20 16:00 02/10/20 16:10 02/10/20 16:10 02/10/20 16:10 02/10/20 16:10 Results - Labs CBC & Chem 7: 02/10/20 04:01 02/10/20 04:01 Labs: Laboratory Last Values WBC 11.0 K/mm3 (4.5-11.0) 02/10/20 04:01 RBC 4.53 M/mm3 (3.65-5.03) 02/10/20 04:01 Hgb 13.2 gm/dl (11.8-15.2) 02/10/20 04:01 Hct 39.6 % (35.5-45.6) D 02/10/20 04:01 MCV 87 fl (84-94) 02/10/20 04:01 MCH 29 pg (28-32) 02/10/20 04:01 MCHC 33 % (32-34) 02/10/20 04:01 RDW 14.5 % (13.2-15.2) 02/10/20 04:01 Plt Count 144 K/mm3 (140-440) 02/10/20 04:01 Lymph % (Auto) Residential Monitor 02/08/20 09:55 [place] % (Auto) Residential Monitor 02/08/20 09:55 Eos % (Auto) Residential Monitor 02/08/20 09:55 Baso % (Auto) Residential Monitor 02/08/20 09:55 Lymph # Residential Monitor 02/08/20 09:55 [place] # Residential Monitor 02/08/20 09:55 Eos # Residential Monitor 02/08/20 09:55 Baso # Residential Monitor 02/08/20 09:55 Add Manual Diff Complete 02/08/20 09:55 Total Counted 100 02/08/20 09:55 Seg Neutrophils % Residential Monitor 02/08/20 09:55 Seg Neuts % (Manual) 94.0 % (40.0-70.0) H 02/08/20 09:55 Band Neutrophils % 0 % 02/08/20 09:55 Lymphocytes % (Manual) 2.0 % (13.4-35.0) L 02/08/20 09:55 Reactive Lymphs % (Man) 0 % 02/08/20 09:55 Monocytes % (Manual) 4.0 % (0.0-7.3) 02/08/20 09:55 Eosinophils % (Manual) 0 % (0.0-4.3) 02/08/20 09:55 Basophils % (Manual) 0 % (0.0-1.8) 02/08/20 09:55 Metamyelocytes % 0 % 02/08/20 09:55 Myelocytes % 0 % 02/08/20 09:55 Promyelocytes % 0 % 02/08/20 09:55 Blast Cells % 0 % 02/08/20 09:55 Nucleated RBC % 1.0 % (0.0-0.9) H 02/08/20 09:55 Seg Neutrophils # Residential Monitor 02/08/20 09:55 Seg Neutrophils # Man 19.7 K/mm3 (1.8-7.7) H 02/08/20 09:55 Band Neutrophils # 0.0 K/mm3 02/08/20 09:55 Lymphocytes # (Manual) 0.4 K/mm3 (1.2-5.4) L 02/08/20 09:55 Abs React Lymphs (Man) 0.0 K/mm3 02/08/20 09:55 Monocytes # (Manual) 0.8 K/mm3 (0.0-0.8) 02/08/20 09:55 Eosinophils # (Manual) 0.0 K/mm3 (0.0-0.4) 02/08/20 09:55 Basophils # (Manual) 0.0 K/mm3 (0.0-0.1) 02/08/20 09:55 Metamyelocytes # 0.0 K/mm3 02/08/20 09:55 Myelocytes # 0.0 K/mm3 02/08/20 09:55 Promyelocytes # 0.0 K/mm3 02/08/20 09:55 Blast Cells # 0.0 K/mm3 02/08/20 09:55 WBC Morphology Not Reportable 02/08/20 09:55 Hypersegmented Neuts Not Reportable 02/08/20 09:55 Hyposegmented Neuts Not Reportable 02/08/20 09:55 Hypogranular Neuts Not Reportable 02/08/20 09:55 Smudge Cells Not Reportable 02/08/20 09:55 Toxic Granulation Not Reportable 02/08/20 09:55 Toxic Vacuolation Not Reportable 02/08/20 09:55 Dohle Bodies Not Reportable 02/08/20 09:55 Pelger-Huet Anomaly Not Reportable 02/08/20 09:55 Tanner Rods Not Reportable 02/08/20 09:55 Platelet Estimate Consistent w auto 02/08/20 09:55 Clumped Platelets Not Reportable 02/08/20 09:55 Plt Clumps, EDTA Not Reportable 02/08/20 09:55 Large Platelets Rare 02/08/20 09:55 Giant Platelets Not Reportable 02/08/20 09:55 Platelet Satelliting Not Reportable 02/08/20 09:55 Plt Morphology Comment Not Reportable 02/08/20 09:55 RBC Morphology Normal 02/08/20 09:55 Dimorphic RBCs Not Reportable 02/08/20 09:55 Polychromasia Not Reportable 02/08/20 09:55 Hypochromasia Not Reportable 02/08/20 09:55 Poikilocytosis Not Reportable 02/08/20 09:55 Anisocytosis Not Reportable 02/08/20 09:55 Microcytosis Not Reportable 02/08/20 09:55 Macrocytosis Not Reportable 02/08/20 09:55 Spherocytes Not Reportable 02/08/20 09:55 Pappenheimer Bodies Not Reportable 02/08/20 09:55 Sickle Cells Not Reportable 02/08/20 09:55 Target Cells Not Reportable 02/08/20 09:55 Tear Drop Cells Not Reportable 02/08/20 09:55 Ovalocytes Not Reportable 02/08/20 09:55 Helmet Cells Not Reportable 02/08/20 09:55 [place] Bodies Not Reportable 02/08/20 09:55 [place] Rings Not Reportable 02/08/20 09:55 Converse Cells Not Reportable 02/08/20 09:55 Bite Cells Not Reportable 02/08/20 09:55 Crenated Cell Not Reportable 02/08/20 09:55 Elliptocytes Not Reportable 02/08/20 09:55 Acanthocytes (Spur) Not Reportable 02/08/20 09:55 Rouleaux Not Reportable 02/08/20 09:55 Hemoglobin C Crystals Not Reportable 02/08/20 09:55 Schistocytes Not Reportable 02/08/20 09:55 Malaria parasites Not Reportable 02/08/20 09:55 Clement Bodies Not Reportable 02/08/20 09:55 Hem Pathologist Commnt No 02/08/20 09:55 PT 13.5 Sec. (12.2-14.9) 02/08/20 09:55 INR 1.02 (0.87-1.13) 02/08/20 09:55 APTT 23.2 Sec. (24.2-36.6) L 02/08/20 09:55 Thrombin Time 18.6 Sec. (15.1-19.6) 02/08/20 09:55 D-Dimer 299.15 ng/mlDDU (0-234) H 02/08/20 09:55 ABG pH 7.295 pH Units (7.350-7.450) L 02/10/20 16:43 ABG pCO2 39.8 mm Hg 02/10/20 16:43 ABG pO2 136.3 mm Hg (80.0-90.0) H 02/10/20 16:43 ABG HCO3 18.9 mmol/L (20.0-26.0) L 02/10/20 16:43 ABG O2 Saturation 98.5 % (95.0-99.0) 02/10/20 16:43 ABG O2 Content 19.3 (0.0-44) 02/10/20 16:43 ABG Base Excess -7.1 mmol/L (-2.0-3.0) L 02/10/20 16:43 ABG Hemoglobin 14.0 gm/dl (14.0-18.0) 02/10/20 16:43 ABG Carboxyhemoglobin 1.3 % (0.0-5.0) 02/10/20 16:43 ABG Methemoglobin 0.7 % (0.0-1.5) 02/10/20 16:43 Oxyhemoglobin 96.5 % (95.0-99.0) 02/10/20 16:43 FiO2 30 % 02/10/20 16:43 Sodium 149 mmol/L (137-145) H 02/10/20 04:01 Potassium 4.0 mmol/L (3.6-5.0) 02/10/20 04:01 Chloride 121.2 mmol/L (98-107) H 02/10/20 04:01 Carbon Dioxide 19 mmol/L (22-30) L 02/10/20 04:01 Anion Gap 13 mmol/L 02/10/20 04:01 BUN 17 mg/dL (9-20) 02/10/20 04:01 Creatinine 1.2 mg/dL (0.8-1.5) 02/10/20 04:01 Estimated GFR 59 ml/min 02/10/20 04:01 BUN/Creatinine Ratio 14 % 02/10/20 04:01 Glucose 184 mg/dL (75-100) H 02/10/20 04:01 POC Glucose 225 (70-105) H 02/10/20 11:38 Lactic Acid 1.60 mmol/L (0.7-2.0) 02/08/20 13:55 Calcium 8.1 mg/dL (8.4-10.2) L 02/10/20 04:01 Phosphorus 2.20 mg/dL (2.5-4.5) L D 02/08/20 18:10 Magnesium 2.40 mg/dL (1.7-2.3) H 02/08/20 18:10 Ferritin 861.7 ng/mL (13.0-400.0) H 02/08/20 09:55 Total Bilirubin 0.30 mg/dL (0.1-1.2) 02/08/20 09:55 Direct Bilirubin < 0.2 mg/dL (0-0.2) 02/08/20 09:55 Indirect Bilirubin 0.1 mg/dL 02/08/20 09:55 AST 13 units/L (5-40) 02/08/20 09:55 ALT 19 units/L (7-56) 02/08/20 09:55 Alkaline Phosphatase 85 units/L (35-129) 02/08/20 09:55 Lactate Dehydrogenase 140 units/L (91-180) 02/08/20 09:55 Total Creatine Kinase 69 units/L (55-170) 02/08/20 09:55 CK-MB (CK-2) 1.2 ng/mL (0.0-4.0) 02/08/20 09:55 CK-MB (CK-2) Rel Index 1.7 (0-4) 02/08/20 09:55 Troponin T < 0.010 ng/mL (0.00-0.029) 02/08/20 09:55 Troponin T < 0.010 ng/mL (0.00-0.029) 02/08/20 09:55 C-Reactive Protein 0.30 mg/dL (0.00-1.30) 02/08/20 09:55 Total Protein 5.9 g/dL (6.3-8.2) L 02/08/20 09:55 Albumin 3.5 g/dL (3.9-5) L 02/08/20 09:55 Albumin/Globulin Ratio 1.5 % 02/08/20 09:55 Procalcitonin < 0.05 ng/mL (<0.15) 02/08/20 09:55 Urine Color Yellow (Yellow) 02/08/20 11:36 Urine Turbidity Slightly-cloudy (Clear) 02/08/20 11:36 Urine pH 5.0 (5.0-7.0) 02/08/20 11:36 Ur Specific Roland 1.024 (1.003-1.030) 02/08/20 11:36 Urine Protein <15 mg/dl mg/dL (Negative) 02/08/20 11:36 Urine Glucose (UA) >=500 mg/dL (Negative) 02/08/20 11:36 Urine Ketones Tr mg/dL (Negative) 02/08/20 11:36 Urine Blood Mod (Negative) 02/08/20 11:36 Urine Nitrite Pos (Negative) 02/08/20 11:36 Urine Bilirubin Neg (Negative) 02/08/20 11:36 Urine Urobilinogen < 2.0 mg/dL (<2.0) 02/08/20 11:36 Ur Leukocyte Esterase Sm (Negative) 02/08/20 11:36 Urine WBC (Auto) 65.0 /HPF (0.0-6.0) H 02/08/20 11:36 Urine RBC (Auto) 15.0 /HPF (0.0-6.0) 02/08/20 11:36 Urine Bacteria (Auto) 1+ /HPF (Negative) 02/08/20 11:36 Urine Yeast (Budding) 2+ /HPF 02/08/20 11:36 Urine Opiates Screen Presumptive negative 02/08/20 11:36 Urine Methadone Screen Presumptive negative 02/08/20 11:36 Ur Barbiturates Screen Presumptive negative 02/08/20 11:36 Ur Phencyclidine Scrn Presumptive negative 02/08/20 11:36 Ur Amphetamines Screen Presumptive negative 02/08/20 11:36 U Benzodiazepines Scrn Presumptive negative 02/08/20 11:36 Urine Cocaine Screen Presumptive negative 02/08/20 11:36 U Marijuana (THC) Screen Presumptive negative 02/08/20 11:36 Drugs of Abuse Note Disclamer 02/08/20 11:36 Plasma/Serum Alcohol < 0.01 % (0-0.07) 02/08/20 09:55 Microbiology: Microbiology 02/08/20 Unknown Peripheral/Venous Blood Culture - Preliminary NO GROWTH AFTER 48 HOURS 02/08/20 Unknown Peripheral/Venous Blood Culture - Preliminary NO GROWTH AFTER 48 HOURS 02/08/20 11:36 Urine,Clean Catch Urine Culture - Preliminary Torres/IV: Voiding Method Suprapubic catheter IV Catheter Type [Right INT / Saline Lock Antecubital] IV Catheter Type [Right Hand] Peripheral IV Active Medications - Current Medications Current Medications: Generic Name Dose Route Start Last Admin Trade Name Freq PRN Reason Stop Dose Admin Lipase/Protease/Amylase 1 each 02/08/20 16:27 Pancreaze 10,500 Unit FEEDTUBE PRN PRN For Clogged Feeding Tube Dextrose 50 ml 02/09/20 08:30 D50w (25gm) Syringe IV Q30MIN PRN Hypoglycemia Protocol Famotidine 20 mg 02/09/20 10:00 02/10/20 09:22 Pepcid IV 20 mg BID UBALDO Administration Heparin Sodium (Porcine) 5,000 unit 02/09/20 10:00 02/10/20 09:18 Heparin SUB-Q 5,000 unit Q12HR UBALDO Administration Hydromorphone HCl 0.5 mg 02/08/20 16:27 Dilaudid IV Q3H PRN Pain , Severe (7-10) Hydrophilic Ointment 1 applic 02/08/20 11:37 Vaseline Lip Therapy TP Q2HR PRN Dry Lips Fentanyl Citrate 2,000 mcg in 100 mls @ 4.375 mls/hr 02/08/20 12:00 02/10/20 15:30 Fentanyl Drip Premix IV 0 mcg/kg/hr TITR UBALDO 0 mls/hr Titration Protocol 1 MCG/KG/HR Propofol 1,000 mg in 100 mls @ 2.625 mls/hr 02/08/20 12:00 02/10/20 05:47 Diprivan 10 Mg/Ml IV 15 mcg/kg/min TITR UBALDO 7.875 mls/hr Administration Protocol 5 MCG/KG/MIN Dextrose/Sodium Chloride 1,000 mls @ 100 mls/hr 02/09/20 11:00 02/10/20 11:52 D5ns IV 100 mls/hr DIRECT UBALDO Administration Ceftriaxone Sodium 1 gm in 50 mls @ 100 mls/hr 02/10/20 11:00 02/10/20 11:52 Rocephin/Ns 1 Gm/50 Ml IV 100 mls/hr Q24HR UBALDO Administration Protocol Insulin Glargine 16 units 02/09/20 22:00 02/09/20 22:26 Lantus SUB-Q Not Given QHS [facility] Insulin Human Lispro 0 unit 02/09/20 12:00 02/10/20 11:33 Humalog SUB-Q 4 unit Q6HR [facility] Administration Protocol Morphine Sulfate 2 mg 02/08/20 16:27 Morphine IV Q4H PRN Pain, Moderate (4-6) Multi-Ingred Cream/Lotion/Oil/Oint 1 applic 02/08/20 11:37 Artificial Tears Ophth Oint OU Q4HR PRN Dry Eye(s) Simple Syrup 15 ml 02/08/20 16:27 Simple Syrup FEEDTUBE PRN PRN Hypoglycemia Simple Syrup 30 ml 02/08/20 16:27 Simple Syrup FEEDTUBE PRN PRN Hypoglycemia Sodium Bicarbonate 325 mg 02/08/20 16:27 Sodium Bicarbonate FEEDTUBE PRN PRN For Clogged Feeding Tube Sodium Chloride 10 ml 02/08/20 22:00 02/10/20 09:23 Sodium Chloride Flush Syringe 10 Ml IV 10 ml BID UBALDO Administration Sodium Chloride 10 ml 02/08/20 16:27 Sodium Chloride Flush Syringe 10 Ml IV PRN PRN LINE FLUSH Nutrition/Malnutrition Assess - Dietary Evaluation Nutrition/Malnutrition Findings: Nutrition Notes Start: 02/09/20 07:55 Freq: Status: Active Protocol: Document 02/09/20 07:55 LP (Rec: 02/09/20 08:00 LP [id number]) Nutrition Notes Need for Assessment generated from: MD Order Initial or Follow up Assessment Current Diagnosis Diabetes,Sepsis,Hypertension Other Pertinent Diagnosis AMS, DKA Current Diet NPO Labs/Tests K 3.5 BUN 27 BG 113 Pertinent Medications D5NS at 125ml/hr Insulin drip LCL 40mEq Propofol 5.25ml/hr Height 5 ft 10 in Weight 87.5 kg [place] Body Weight (kg) 75.45 BMI 27.6 Weight Status Overweight Subjective/Other Information Consult for TF. Pt in ED on vent. Noted NGT to suction yesterday. Burn Absent Trauma Absent Minimum of two criteria No physical signs of malnutrition #1 Nutrition Diagnosis Inadequate oral intake Etiology vent As Evidenced by Signs and Symptoms Pt unable to consume PO Is patient on ventilator? Yes Is Patient Ambulatory and/or Out of Bed No REE-([facility]-confined to bed) [phone] Calculation Used for Recommendations [facility] Additional Notes Protein needs are 105-175g (1. 2-2g/kg) Fluid needs are 1ml/kcal Nutrition Intervention Change Diet Order: TF Nutrition Support: Vital 1.2 at 65ml/hr Flush with 100ml q4h Kcal 1,872 Protein (gm) 117 Fluid (mL) 1,260 Goal #1 Meet at least 80% of kcal and protein needs via TF Anticipated Discharge Needs: Unable to determine at this time Follow-Up By: 02/11/20 Additional Comments Follow for TF start/tolerance
[2020-02-10] MEDS: DEXTROSE 5% IN WATER 1,000 ML IV SCH (17:13)
[2020-02-10] MEDS: INSULIN GLARGINE 100 UNITS/ML SUB-Q SCH (22:31)
[2020-02-11] MEDS: INSULIN LISPRO 100 UNIT/ML SUB-Q SCH ×4 (00:12→17:46)
--- NOTE | 2020-02-11 03:31 | XRay Report ---
CHEST 1 VIEW 02/11/2020 1:56 AM INDICATION / CLINICAL INFORMATION: follow up respiratory failure. COMPARISON: 02/10/20 FINDINGS: SUPPORT DEVICES: Stable, satisfactory device positioning. HEART / MEDIASTINUM: Stable. LUNGS / PLEURA: Suboptimal inspiration resulting in low lung volumes. No pneumothorax. ADDITIONAL FINDINGS: No significant additional findings. IMPRESSION: 1. Low lung volumes. Signer Name: Karon Batres MD Signed: 02/11/2020 3:27 AM Workstation Name: [id number]
[2020-02-11 04:56] LABS: Albumin 2.9 g/dL (3.9-5); Calcium 8.5 mg/dL (8.4-10.2)
[2020-02-11] MEDS: DEXTROSE 5% IN WATER 1,000 ML IV SCH (05:44)
--- NOTE | 2020-02-11 08:41 | Progress Note ---
Assessment and Plan Assessment and plan: Patient currently intubated history obtained from ED documentation patient is 74-year-old male with history of hypertension. Patient brought to the emergency room via EMS from home for evaluation of altered mental status and decreased responsiveness. EMS stated that patient stated that last time he was normal was 9 PM when he went to bed. denied any history of seizure. She also denied any history of previous stroke. She also informed EMS that he did not have any fever or chills recently. Stroke protocol immediately initiated and patient moved to CT for stat CT brain. Upon return from the CT patient became more obtunded, patient is unable to maintain his airway. Patient immediately intubated by me using a glide scope with ET tube confirmation by direct visualization, capnometry and good breath sounds on both side. Sepsis protocol also initiated for possible sepsis. * On arrival to the hospital patient was noted to have a blood sugar of over 800. * BG improved, Acute hypoxic respiratory failure Hyperosmotic hyperglycemic nonketotic state versus DKA Sepsis possible acute cystitis Discussed with infectious disease patient not a candidate for COVID low suspicion at this time.-Isolation discontinued Acute metabolic encephalopathy Metabolic acidosis Hypernatremia Plan Continue supportive care vent management per instructional technology instructor MRI pending and will be done when patient is extubated Neurology input noted ID input noted Change fluids to D5W AND MONITOR SODIUM Await further imaging studies including MRI when stable Renal function is improving at this point Adjust insulin therapy Continue antibiotics as dictated by ID Isolation discontinued as patient not a candidate for COVID tested due to low suspicion. DVT and GI prophylaxis Critical care time 35 minutes History Interval history: Patient seen and examined remains on full mechanical ventilation. No other acute issues reported to me overnight. CPAP trial today PUI?: No Hospitalist Physical - Physical exam Narrative exam: VITAL SIGNS: Reviewed. GENERAL: The patient appears normally developed, otherwise critically ill in mechanical ventilation vital signs as documented. HEAD: No signs of head trauma. EYES: Pupils are equal. EARS: Unable to examine. MOUTH: ET tube in place NECK: No adenopathy, no JVD. CHEST: Chest with diminished breath sounds bilaterally. No wheezes, rales, or rhonchi. CARDIAC: Regular rate and rhythm. S1 and S2, without murmurs, gallops, or rubs. VASCULAR: No Edema. Peripheral pulses normal and equal in all extremities. ABDOMEN: Soft, non distended. No rebound or guarding, and no masses palpated. Bowel Sounds normal. MUSCULOSKELETAL: Extremities without clubbing, cyanosis or edema. NEUROLOGIC EXAM: Sedated unable to examine PSYCHIATRIC: Sedated SKIN: detail exam as documented in skin assessment - Constitutional Vitals: Temp Pulse Resp BP Pulse Ox 98.2 F 96 H 11 L 154/74 99 02/11/20 08:00 02/11/20 08:15 02/11/20 08:15 02/11/20 08:15 02/11/20 08:15 Results - Labs CBC & Chem 7: 02/10/20 04:01 02/11/20 04:09 Labs: Laboratory Last Values WBC 11.0 K/mm3 (4.5-11.0) 02/10/20 04:01 RBC 4.53 M/mm3 (3.65-5.03) 02/10/20 04:01 Hgb 13.2 gm/dl (11.8-15.2) 02/10/20 04:01 Hct 39.6 % (35.5-45.6) D 02/10/20 04:01 MCV 87 fl (84-94) 02/10/20 04:01 MCH 29 pg (28-32) 02/10/20 04:01 MCHC 33 % (32-34) 02/10/20 04:01 RDW 14.5 % (13.2-15.2) 02/10/20 04:01 Plt Count 144 K/mm3 (140-440) 02/10/20 04:01 Lymph % (Auto) Dry Cleaning Machine Operator Helper 02/08/20 09:55 [place] % (Auto) Dry Cleaning Machine Operator Helper 02/08/20 09:55 Eos % (Auto) Dry Cleaning Machine Operator Helper 02/08/20 09:55 Baso % (Auto) Dry Cleaning Machine Operator Helper 02/08/20 09:55 Lymph # Dry Cleaning Machine Operator Helper 02/08/20 09:55 [place] # Dry Cleaning Machine Operator Helper 02/08/20 09:55 Eos # Dry Cleaning Machine Operator Helper 02/08/20 09:55 Baso # Dry Cleaning Machine Operator Helper 02/08/20 09:55 Add Manual Diff Complete 02/08/20 09:55 Total Counted 100 02/08/20 09:55 Seg Neutrophils % Dry Cleaning Machine Operator Helper 02/08/20 09:55 Seg Neuts % (Manual) 94.0 % (40.0-70.0) H 02/08/20 09:55 Band Neutrophils % 0 % 02/08/20 09:55 Lymphocytes % (Manual) 2.0 % (13.4-35.0) L 02/08/20 09:55 Reactive Lymphs % (Man) 0 % 02/08/20 09:55 Monocytes % (Manual) 4.0 % (0.0-7.3) 02/08/20 09:55 Eosinophils % (Manual) 0 % (0.0-4.3) 02/08/20 09:55 Basophils % (Manual) 0 % (0.0-1.8) 02/08/20 09:55 Metamyelocytes % 0 % 02/08/20 09:55 Myelocytes % 0 % 02/08/20 09:55 Promyelocytes % 0 % 02/08/20 09:55 Blast Cells % 0 % 02/08/20 09:55 Nucleated RBC % 1.0 % (0.0-0.9) H 02/08/20 09:55 Seg Neutrophils # Dry Cleaning Machine Operator Helper 02/08/20 09:55 Seg Neutrophils # Man 19.7 K/mm3 (1.8-7.7) H 02/08/20 09:55 Band Neutrophils # 0.0 K/mm3 02/08/20 09:55 Lymphocytes # (Manual) 0.4 K/mm3 (1.2-5.4) L 02/08/20 09:55 Abs React Lymphs (Man) 0.0 K/mm3 02/08/20 09:55 Monocytes # (Manual) 0.8 K/mm3 (0.0-0.8) 02/08/20 09:55 Eosinophils # (Manual) 0.0 K/mm3 (0.0-0.4) 02/08/20 09:55 Basophils # (Manual) 0.0 K/mm3 (0.0-0.1) 02/08/20 09:55 Metamyelocytes # 0.0 K/mm3 02/08/20 09:55 Myelocytes # 0.0 K/mm3 02/08/20 09:55 Promyelocytes # 0.0 K/mm3 02/08/20 09:55 Blast Cells # 0.0 K/mm3 02/08/20 09:55 WBC Morphology Not Reportable 02/08/20 09:55 Hypersegmented Neuts Not Reportable 02/08/20 09:55 Hyposegmented Neuts Not Reportable 02/08/20 09:55 Hypogranular Neuts Not Reportable 02/08/20 09:55 Smudge Cells Not Reportable 02/08/20 09:55 Toxic Granulation Not Reportable 02/08/20 09:55 Toxic Vacuolation Not Reportable 02/08/20 09:55 Dohle Bodies Not Reportable 02/08/20 09:55 Pelger-Huet Anomaly Not Reportable 02/08/20 09:55 Tanner Rods Not Reportable 02/08/20 09:55 Platelet Estimate Consistent w auto 02/08/20 09:55 Clumped Platelets Not Reportable 02/08/20 09:55 Plt Clumps, EDTA Not Reportable 02/08/20 09:55 Large Platelets Rare 02/08/20 09:55 Giant Platelets Not Reportable 02/08/20 09:55 Platelet Satelliting Not Reportable 02/08/20 09:55 Plt Morphology Comment Not Reportable 02/08/20 09:55 RBC Morphology Normal 02/08/20 09:55 Dimorphic RBCs Not Reportable 02/08/20 09:55 Polychromasia Not Reportable 02/08/20 09:55 Hypochromasia Not Reportable 02/08/20 09:55 Poikilocytosis Not Reportable 02/08/20 09:55 Anisocytosis Not Reportable 02/08/20 09:55 Microcytosis Not Reportable 02/08/20 09:55 Macrocytosis Not Reportable 02/08/20 09:55 Spherocytes Not Reportable 02/08/20 09:55 Pappenheimer Bodies Not Reportable 02/08/20 09:55 Sickle Cells Not Reportable 02/08/20 09:55 Target Cells Not Reportable 02/08/20 09:55 Tear Drop Cells Not Reportable 02/08/20 09:55 Ovalocytes Not Reportable 02/08/20 09:55 Helmet Cells Not Reportable 02/08/20 09:55 Zav[place] Bodies Not Reportable 02/08/20 09:55 [place] Rings Not Reportable 02/08/20 09:55 Parkman Cells Not Reportable 02/08/20 09:55 Bite Cells Not Reportable 02/08/20 09:55 Crenated Cell Not Reportable 02/08/20 09:55 Elliptocytes Not Reportable 02/08/20 09:55 Acanthocytes (Spur) Not Reportable 02/08/20 09:55 Rouleaux Not Reportable 02/08/20 09:55 Hemoglobin C Crystals Not Reportable 02/08/20 09:55 Schistocytes Not Reportable 02/08/20 09:55 Malaria parasites Not Reportable 02/08/20 09:55 Clement Bodies Not Reportable 02/08/20 09:55 Hem Pathologist Commnt No 02/08/20 09:55 PT 13.5 Sec. (12.2-14.9) 02/08/20 09:55 INR 1.02 (0.87-1.13) 02/08/20 09:55 APTT 23.2 Sec. (24.2-36.6) L 02/08/20 09:55 Thrombin Time 18.6 Sec. (15.1-19.6) 02/08/20 09:55 D-Dimer 8032.84 ng/mlDDU (0-234) H 02/10/20 19:46 ABG pH 7.295 pH Units (7.350-7.450) L 02/10/20 16:43 ABG pCO2 39.8 mm Hg 02/10/20 16:43 ABG pO2 136.3 mm Hg (80.0-90.0) H 02/10/20 16:43 ABG HCO3 18.9 mmol/L (20.0-26.0) L 02/10/20 16:43 ABG O2 Saturation 98.5 % (95.0-99.0) 02/10/20 16:43 ABG O2 Content 19.3 (0.0-44) 02/10/20 16:43 ABG Base Excess -7.1 mmol/L (-2.0-3.0) L 02/10/20 16:43 ABG Hemoglobin 14.0 gm/dl (14.0-18.0) 02/10/20 16:43 ABG Carboxyhemoglobin 1.3 % (0.0-5.0) 02/10/20 16:43 ABG Methemoglobin 0.7 % (0.0-1.5) 02/10/20 16:43 Oxyhemoglobin 96.5 % (95.0-99.0) 02/10/20 16:43 FiO2 30 % 02/10/20 16:43 Sodium 144 mmol/L (137-145) 02/11/20 04:09 Potassium 4.0 mmol/L (3.6-5.0) 02/11/20 04:09 Chloride 114.7 mmol/L (98-107) H 02/11/20 04:09 Carbon Dioxide 20 mmol/L (22-30) L 02/11/20 04:09 Anion Gap 13 mmol/L 02/11/20 04:09 BUN 14 mg/dL (9-20) 02/11/20 04:09 Creatinine 1.2 mg/dL (0.8-1.5) 02/11/20 04:09 Estimated GFR 59 ml/min 02/11/20 04:09 BUN/Creatinine Ratio 12 % 02/11/20 04:09 Glucose 247 mg/dL (75-100) H 02/11/20 04:09 POC Glucose 223 (70-105) H 02/11/20 05:40 Lactic Acid 1.60 mmol/L (0.7-2.0) 02/08/20 13:55 Calcium 8.5 mg/dL (8.4-10.2) 02/11/20 04:09 Phosphorus 2.20 mg/dL (2.5-4.5) L D 02/08/20 18:10 Magnesium 2.40 mg/dL (1.7-2.3) H 02/08/20 18:10 Ferritin 876.5 ng/mL (13.0-400.0) H 02/10/20 19:46 Total Bilirubin 0.50 mg/dL (0.1-1.2) 02/11/20 04:09 Direct Bilirubin < 0.2 mg/dL (0-0.2) 02/08/20 09:55 Indirect Bilirubin 0.1 mg/dL 02/08/20 09:55 AST 23 units/L (5-40) 02/11/20 04:09 ALT 16 units/L (7-56) 02/11/20 04:09 Alkaline Phosphatase 76 units/L (35-129) 02/11/20 04:09 Lactate Dehydrogenase 140 units/L (91-180) 02/08/20 09:55 Total Creatine Kinase 69 units/L (55-170) 02/08/20 09:55 CK-MB (CK-2) 1.2 ng/mL (0.0-4.0) 02/08/20 09:55 CK-MB (CK-2) Rel Index 1.7 (0-4) 02/08/20 09:55 Troponin T < 0.010 ng/mL (0.00-0.029) 02/08/20 09:55 Troponin T < 0.010 ng/mL (0.00-0.029) 02/08/20 09:55 C-Reactive Protein 0.30 mg/dL (0.00-1.30) 02/08/20 09:55 Total Protein 5.9 g/dL (6.3-8.2) L 02/11/20 04:09 Albumin 2.9 g/dL (3.9-5) L 02/11/20 04:09 Albumin/Globulin Ratio 1.0 % 02/11/20 04:09 Procalcitonin < 0.05 ng/mL (<0.15) 02/08/20 09:55 Urine Color Yellow (Yellow) 02/08/20 11:36 Urine Turbidity Slightly-cloudy (Clear) 02/08/20 11:36 Urine pH 5.0 (5.0-7.0) 02/08/20 11:36 Ur Specific [place] 1.024 (1.003-1.030) 02/08/20 11:36 Urine Protein <15 mg/dl mg/dL (Negative) 02/08/20 11:36 Urine Glucose (UA) >=500 mg/dL (Negative) 02/08/20 11:36 Urine Ketones Tr mg/dL (Negative) 02/08/20 11:36 Urine Blood Mod (Negative) 02/08/20 11:36 Urine Nitrite Pos (Negative) 02/08/20 11:36 Urine Bilirubin Neg (Negative) 02/08/20 11:36 Urine Urobilinogen < 2.0 mg/dL (<2.0) 02/08/20 11:36 Ur Leukocyte Esterase Sm (Negative) 02/08/20 11:36 Urine WBC (Auto) 65.0 /HPF (0.0-6.0) H 02/08/20 11:36 Urine RBC (Auto) 15.0 /HPF (0.0-6.0) 02/08/20 11:36 Urine Bacteria (Auto) 1+ /HPF (Negative) 02/08/20 11:36 Urine Yeast (Budding) 2+ /HPF 02/08/20 11:36 Urine Opiates Screen Presumptive negative 02/08/20 11:36 Urine Methadone Screen Presumptive negative 02/08/20 11:36 Ur Barbiturates Screen Presumptive negative 02/08/20 11:36 Ur Phencyclidine Scrn Presumptive negative 02/08/20 11:36 Ur Amphetamines Screen Presumptive negative 02/08/20 11:36 U Benzodiazepines Scrn Presumptive negative 02/08/20 11:36 Urine Cocaine Screen Presumptive negative 02/08/20 11:36 U Marijuana (THC) Screen Presumptive negative 02/08/20 11:36 Drugs of Abuse Note Disclamer 02/08/20 11:36 Plasma/Serum Alcohol < 0.01 % (0-0.07) 02/08/20 09:55 Microbiology: Microbiology 02/08/20 Unknown Sputum - Endotracheal Wash Sputum Culture - Preliminary 02/08/20 Unknown Peripheral/Venous Blood Culture - Preliminary NO GROWTH AFTER 48 HOURS 02/08/20 Unknown Peripheral/Venous Blood Culture - Preliminary NO GROWTH AFTER 48 HOURS 02/08/20 11:36 Urine,Clean Catch Urine Culture - Preliminary Torres/IV: Voiding Method Nephrostomy (Right) IV Catheter Type [Left Forearm Peripheral IV ] IV Catheter Type [Right INT / Saline Lock Antecubital] IV Catheter Type [Right Hand] Peripheral IV Active Medications - Current Medications Current Medications: Generic Name Dose Route Start Last Admin Trade Name Freq PRN Reason Stop Dose Admin Lipase/Protease/Amylase 1 each 02/08/20 16:27 [place] 10,500 Unit FEEDTUBE PRN PRN For Clogged Feeding Tube Dextrose 50 ml 02/09/20 08:30 D50w (25gm) Syringe IV Q30MIN PRN Hypoglycemia Protocol Enoxaparin Sodium 100 mg 02/11/20 10:00 Enoxaparin SUB-Q Q12HR UBALDO Famotidine 20 mg 02/09/20 10:00 02/10/20 22:33 Pepcid IV 20 mg BID UBALDO Administration Hydromorphone HCl 0.5 mg 02/08/20 16:27 Dilaudid IV Q3H PRN Pain , Severe (7-10) Hydrophilic Ointment 1 applic 02/08/20 11:37 Vaseline Lip Therapy TP Q2HR PRN Dry Lips Fentanyl Citrate 2,000 mcg in 100 mls @ 4.375 mls/hr 02/08/20 12:00 02/10/20 23:03 Fentanyl Drip Premix IV 1 mcg/kg/hr TITR UBALDO 4.375 mls/hr Titration Protocol 1 MCG/KG/HR Propofol 1,000 mg in 100 mls @ 2.625 mls/hr 02/08/20 12:00 02/11/20 02:33 Diprivan 10 Mg/Ml IV 10 mcg/kg/min TITR UBALDO 5.25 mls/hr Administration Protocol 5 MCG/KG/MIN Ceftriaxone Sodium 1 gm in 50 mls @ 100 mls/hr 02/10/20 11:00 02/10/20 11:52 Rocephin/Ns 1 Gm/50 Ml IV 100 mls/hr Q24HR UBALDO Administration Protocol Dextrose 1,000 mls @ 75 mls/hr 02/10/20 18:00 02/11/20 05:44 D5w IV 75 mls/hr DIRECT UBALDO Administration Insulin Glargine 16 units 02/09/20 22:00 02/10/20 22:31 Lantus SUB-Q 16 units QHS UBALDO Administration Insulin Human Lispro 0 unit 02/09/20 12:00 02/11/20 05:42 Humalog SUB-Q 4 unit Q6HR UBALDO Administration Protocol Morphine Sulfate 2 mg 02/08/20 16:27 Morphine IV Q4H PRN Pain, Moderate (4-6) Multi-Ingred Cream/Lotion/Oil/Oint 1 applic 02/08/20 11:37 Artificial Tears Ophth Oint OU Q4HR PRN Dry Eye(s) Simple Syrup 15 ml 02/08/20 16:27 Simple Syrup FEEDTUBE PRN PRN Hypoglycemia Simple Syrup 30 ml 02/08/20 16:27 Simple Syrup FEEDTUBE PRN PRN Hypoglycemia Sodium Bicarbonate 325 mg 02/08/20 16:27 Sodium Bicarbonate FEEDTUBE PRN PRN For Clogged Feeding Tube Sodium Chloride 10 ml 02/08/20 22:00 02/10/20 22:34 Sodium Chloride Flush Syringe 10 Ml IV 10 ml BID UBALDO Administration Sodium Chloride 10 ml 02/08/20 16:27 Sodium Chloride Flush Syringe 10 Ml IV PRN PRN LINE FLUSH Nutrition/Malnutrition Assess - Dietary Evaluation Nutrition/Malnutrition Findings: Nutrition Notes Start: 02/09/20 07:55 Freq: Status: Active Protocol: Document 02/09/20 07:55 LP (Rec: 02/09/20 08:00 LP [id number]) Nutrition Notes Need for Assessment generated from: MD Order Initial or Follow up Assessment Current Diagnosis Diabetes,Sepsis,Hypertension Other Pertinent Diagnosis AMS, DKA Current Diet NPO Labs/Tests K 3.5 BUN 27 BG 113 Pertinent Medications D5NS at 125ml/hr Insulin drip LCL 40mEq Propofol 5.25ml/hr Height 5 ft 10 in Weight 87.5 kg [place] Body Weight (kg) 75.45 BMI 27.6 Weight Status Overweight Subjective/Other Information Consult for TF. Pt in ED on vent. Noted NGT to suction yesterday. Burn Absent Trauma Absent Minimum of two criteria No physical signs of malnutrition #1 Nutrition Diagnosis Inadequate oral intake Etiology vent As Evidenced by Signs and Symptoms Pt unable to consume PO Is patient on ventilator? Yes Is Patient Ambulatory and/or Out of Bed No REE-([facility]-confined to bed) [phone] Calculation Used for Recommendations [facility] Additional Notes Protein needs are 105-175g (1. 2-2g/kg) Fluid needs are 1ml/kcal Nutrition Intervention Change Diet Order: TF Nutrition Support: Vital 1.2 at 65ml/hr Flush with 100ml q4h Kcal 1,872 Protein (gm) 117 Fluid (mL) 1,260 Goal #1 Meet at least 80% of kcal and protein needs via TF Anticipated Discharge Needs: Unable to determine at this time Follow-Up By: 02/11/20 Additional Comments Follow for TF start/tolerance
[2020-02-11] MEDS: ENOXAPARIN 100 MG/1 ML INJ SUB-Q SCH ×2 (09:37→21:16)
[2020-02-11] MEDS: FAMOTIDINE 20 MG/2 ML INJ IV SCH ×2 (09:37→21:17)
[2020-02-11] MEDS: cefTRIAXone/NS 1 GM/50 ML 1 GM/50 ML BAG IV SCH (09:37)
[2020-02-11 09:56] LABS: ABG Base Excess -4.6 mmol/L (-2.0-3.0); ABG HCO3 21.1 mmol/L (20.0-26.0); ABG Methemoglobin 0.7 % (0.0-1.5); ABG PCO2 41.3 mm Hg; ABG PH 7.326 pH Units (7.350-7.450); ABG PO2 117.1 mm Hg (80.0-90.0)
--- NOTE | 2020-02-11 10:45 | Progress Note ---
Assessment and Plan Acute hypoxemic respiratory failure on MVS Acute encephalopathy, toxic metabolic. Diabetic ketoacidosis vs hyperosmolar non ketotic state Sepsis probably secondary to cysitis/UTI Leukocytosis. Acute kidney injury Hypernatremia - SAT and SBT assessment today, if he tolerates it with adequate weaning parameters, goal to liberate from MVS - VAP bundle addressed -Aspiration precautions HOB >40 - continue lung protective strategies - continue bronchodilators with pulmonary hygiene per RT - wean per pulmonary driven protocols otherwise - accuchecks with glycemic control per SSI (While critically ill target blood glucose of 140-180 mg/dL; avoid hypoglycemia) -Enteric nutrition- Glucerna -Care per DKA protocol- currently off insulin infusion. - sedation prn for target RASS 0 to -1 - continue to wean supplemental oxygen for target O2 sat's > 90% acutely - continue to avoid benzodiazepines, reduce the possibility of delirium -Antibiotics per ID. De-escalate based on ANGELITO and culture results - - prn analgesia per CPOT score - Maintenance of sleep-wake cycle, avoid delirium - continue enteral nutritional support at goal rate as tolerated - G.I. & VTE prophylaxis - PT/OT/ROM exercises - continue mobility protocol, off loading and skin assessment for pressure ulcer prevention -Ostomy care - Monitor hemodynamics closely - continue other care per attending / other consultants .... Re-evaluate in am & prn CONDITION: CRITICAL PROGNOSIS: GUARDED CODE STATUS: FULL CODE The high probability of a clinically significant, sudden or life-threatening deterioration of the [respiratory, endocrine and neurologic] system(s) required my full and direct attention, intervention and personal management. The [facility] critical care time was [31] minutes without overlap. Time includes spent on; [x] Data Review and interpretation [x] Patient assessment and monitoring of vital signs [x] Documentation [x] Medication orders and management Subjective Date of service: 02/11/20 Interval history: Patient is seen today for: Acute hypoxemic respiratory failure; Acute encephalopathy; DKA; Sepsis secondary to cystitis/UTI; SOURAV Seen and examined at bedside; 24hour events reviewed; nursing and respiratory care staff consulted; no adverse overnight events reported to me; remains on MVS; low index of suspicion for COVID per ID, no further testing needed, no new overnight events reported; no fevers; no diarrhea or vomiting, copious frothy ETT secretions PUI?: Yes Objective - Exam Narrative Exam: Vitals reviewed Constitutional: no acute distress, other (elderly looking CM, normocephalic with mildly increased resp effort on MVS) Eyes: non-icteric ENT: oropharynx moist, other (ETT 23 cm SANDY) Neck: supple, no lymphadenopathy, no JVD Effort: mildly labored Ascultation: Bilateral: diminished breath sounds, rhonchi Percussion: Bilateral: not dull Cardiovascular: regular rate and rhythm Gastrointestinal: normoactive bowel sounds, soft, non-tender, non-distended Ostomy bag Integumentary: normal Extremities: no cyanosis, no edema, pink and warm, pulses normal Neurologic: non-focal exam (grossly), pupils equal and round,awake and alert, obeying simple commands Psychiatric: other (unable to assess re: AMS) Vital Signs - 12hr 02/10/20 02/10/20 02/10/20 23:00 23:07 23:15 Temperature Pulse Rate 106 H 99 H 105 H Respiratory 17 11 L 11 L Rate Blood Pressure 148/71 148/71 144/71 O2 Sat by Pulse 99 99 Oximetry 02/10/20 02/10/20 02/11/20 23:30 23:45 00:00 Temperature 98.2 F Pulse Rate 96 H 101 H 100 H Respiratory 11 L 12 10 L Rate Blood Pressure 136/65 136/69 145/70 O2 Sat by Pulse 98 99 Oximetry 02/11/20 02/11/20 02/11/20 00:15 00:30 00:45 Temperature Pulse Rate 101 H 98 H 91 H Respiratory 11 L 13 13 Rate Blood Pressure 141/76 145/71 136/75 O2 Sat by Pulse 97 98 Oximetry 02/11/20 02/11/20 02/11/20 00:47 01:00 01:15 Temperature Pulse Rate 107 H 101 H 111 H Respiratory 13 16 Rate Blood Pressure 136/75 124/78 124/78 O2 Sat by Pulse 100 98 99 Oximetry 02/11/20 02/11/20 02/11/20 01:30 01:45 02:00 Temperature Pulse Rate 105 H 110 H 99 H Respiratory 12 8 L 9 L Rate Blood Pressure 151/77 165/71 132/72 O2 Sat by Pulse 98 98 100 Oximetry 02/11/20 02/11/20 02/11/20 02:15 02:30 02:45 Temperature Pulse Rate 96 H 101 H 98 H Respiratory 12 10 L 18 Rate Blood Pressure 132/68 136/69 116/66 O2 Sat by Pulse 99 98 Oximetry 02/11/20 02/11/20 02/11/20 03:00 03:15 03:30 Temperature Pulse Rate 94 H 98 H 101 H Respiratory 13 12 11 L Rate Blood Pressure 129/67 124/67 140/67 O2 Sat by Pulse 97 99 99 Oximetry 02/11/20 02/11/20 02/11/20 03:45 04:00 04:13 Temperature 98.5 F Pulse Rate 96 H 96 H 94 H Respiratory 12 10 L Rate Blood Pressure 149/63 141/64 139/62 O2 Sat by Pulse 99 98 100 Oximetry 02/11/20 02/11/20 02/11/20 04:15 04:30 04:45 Temperature Pulse Rate 94 H 94 H 91 H Respiratory 12 12 11 L Rate Blood Pressure 139/62 128/62 122/61 O2 Sat by Pulse 99 100 Oximetry 02/11/20 02/11/20 02/11/20 05:00 05:15 05:30 Temperature Pulse Rate 91 H 89 93 H Respiratory 11 L 14 11 L Rate Blood Pressure 129/64 119/56 134/66 O2 Sat by Pulse 98 98 97 Oximetry 02/11/20 02/11/20 02/11/20 05:45 06:00 06:15 Temperature Pulse Rate 99 H 98 H 96 H Respiratory 11 L 13 9 L Rate Blood Pressure 139/61 148/68 150/71 O2 Sat by Pulse 96 97 Oximetry 02/11/20 02/11/20 02/11/20 06:30 06:45 07:00 Temperature Pulse Rate 96 H 97 H 99 H Respiratory 11 L 13 13 Rate Blood Pressure 140/86 155/80 153/78 O2 Sat by Pulse 99 99 98 Oximetry 02/11/20 02/11/20 02/11/20 07:15 07:30 07:45 Temperature Pulse Rate 96 H 96 H 90 Respiratory 15 9 L 12 Rate Blood Pressure 160/78 155/77 146/71 O2 Sat by Pulse 98 98 Oximetry 02/11/20 02/11/20 02/11/20 08:00 08:15 08:30 Temperature 98.2 F Pulse Rate 109 H 96 H 101 H Respiratory 14 11 L 12 Rate Blood Pressure 164/75 154/74 163/109 O2 Sat by Pulse 98 99 98 Oximetry 02/11/20 02/11/20 02/11/20 08:45 09:00 09:15 Temperature Pulse Rate 97 H 106 H 102 H Respiratory 12 13 13 Rate Blood Pressure 162/76 168/81 156/65 O2 Sat by Pulse 97 99 97 Oximetry 02/11/20 02/11/20 02/11/20 09:30 09:35 09:45 Temperature Pulse Rate 109 H 107 H 108 H Respiratory 14 10 L 9 L Rate Blood Pressure 164/75 164/75 164/75 O2 Sat by Pulse 100 99 99 Oximetry 02/11/20 10:01 Temperature Pulse Rate 117 H Respiratory 15 Rate Blood Pressure 164/75 O2 Sat by Pulse 99 Oximetry CBC and BMP: 02/14/20 03:43 02/14/20 03:43 ABG, PT/INR, D-dimer: ABG ABG pH 7.326 pH Units (7.350-7.450) L 02/11/20 09:45 ABG pCO2 41.3 mm Hg 02/11/20 09:45 ABG pO2 117.1 mm Hg (80.0-90.0) H 02/11/20 09:45 ABG O2 Saturation 98.0 % (95.0-99.0) 02/11/20 09:45 PT/INR, D-dimer PT 13.5 Sec. (12.2-14.9) 02/08/20 09:55 INR 1.02 (0.87-1.13) 02/08/20 09:55 D-Dimer 8032.84 ng/mlDDU (0-234) H 02/10/20 19:46 Abnormal lab findings: Abnormal Labs 02/08/20 02/08/20 02/08/20 09:12 09:55 09:55 WBC 21.0 H RBC 5.59 H Hgb 16.0 H Hct 50.0 H Seg Neuts % (Manual) 94.0 H Lymphocytes % (Manual) 2.0 L Nucleated RBC % 1.0 H Seg Neutrophils # Man 19.7 H Lymphocytes # (Manual) 0.4 L APTT 23.2 L D-Dimer 299.15 H ABG pH ABG pO2 ABG HCO3 ABG O2 Saturation ABG Base Excess ABG Hemoglobin Sodium Potassium Chloride Carbon Dioxide BUN Creatinine Glucose POC Glucose > 500 H Lactic Acid Calcium Phosphorus Magnesium Ferritin Total Protein Albumin Urine WBC (Auto) 02/08/20 02/08/20 02/08/20 09:55 09:55 10:30 WBC RBC Hgb Hct Seg Neuts % (Manual) Lymphocytes % (Manual) Nucleated RBC % Seg Neutrophils # Man Lymphocytes # (Manual) APTT D-Dimer ABG pH 7.275 L ABG pO2 365.1 H ABG HCO3 17.4 L ABG O2 Saturation 99.5 H ABG Base Excess -8.7 L ABG Hemoglobin Sodium 128 L Potassium 5.1 H Chloride 91.4 L Carbon Dioxide 10 L BUN 38 H Creatinine 2.7 H Glucose 803 H* POC Glucose Lactic Acid Calcium Phosphorus Magnesium Ferritin 861.7 H Total Protein 5.9 L Albumin 3.5 L Urine WBC (Auto) 02/08/20 02/08/20 02/08/20 10:45 11:36 11:40 WBC RBC Hgb Hct Seg Neuts % (Manual) Lymphocytes % (Manual) Nucleated RBC % Seg Neutrophils # Man Lymphocytes # (Manual) APTT D-Dimer ABG pH ABG pO2 ABG HCO3 ABG O2 Saturation ABG Base Excess ABG Hemoglobin Sodium Potassium Chloride Carbon Dioxide BUN Creatinine Glucose POC Glucose Lactic Acid 6.10 H* Calcium Phosphorus Magnesium 2.70 H Ferritin Total Protein Albumin Urine WBC (Auto) 65.0 H 02/08/20 02/08/20 02/08/20 11:40 13:21 13:55 WBC RBC Hgb Hct Seg Neuts % (Manual) Lymphocytes % (Manual) Nucleated RBC % Seg Neutrophils # Man Lymphocytes # (Manual) APTT D-Dimer ABG pH ABG pO2 ABG HCO3 ABG O2 Saturation ABG Base Excess ABG Hemoglobin Sodium 130 L 135 L Potassium 5.1 H Chloride 91.5 L Carbon Dioxide 14 L 11 L BUN 38 H 34 H Creatinine 2.3 H 2.1 H Glucose 727 H* 473 H POC Glucose > 500 H Lactic Acid Calcium 8.3 L Phosphorus Magnesium Ferritin Total Protein Albumin Urine WBC (Auto) 02/08/20 02/08/20 02/08/20 14:36 15:15 15:48 WBC RBC Hgb Hct Seg Neuts % (Manual) Lymphocytes % (Manual) Nucleated RBC % Seg Neutrophils # Man Lymphocytes # (Manual) APTT D-Dimer ABG pH ABG pO2 ABG HCO3 ABG O2 Saturation ABG Base Excess ABG Hemoglobin Sodium Potassium Chloride 108.8 H Carbon Dioxide 15 L BUN 34 H Creatinine 2.0 H Glucose 293 H POC Glucose 342 H 305 H Lactic Acid Calcium 8.1 L Phosphorus Magnesium Ferritin Total Protein Albumin Urine WBC (Auto) 02/08/20 02/08/20 02/08/20 17:00 18:10 18:10 WBC RBC Hgb Hct Seg Neuts % (Manual) Lymphocytes % (Manual) Nucleated RBC % Seg Neutrophils # Man Lymphocytes # (Manual) APTT D-Dimer ABG pH ABG pO2 ABG HCO3 ABG O2 Saturation ABG Base Excess ABG Hemoglobin Sodium Potassium Chloride 107.4 H Carbon Dioxide 16 L BUN 31 H Creatinine 2.1 H Glucose 216 H POC Glucose 249 H Lactic Acid Calcium Phosphorus 2.20 L D Magnesium 2.40 H Ferritin Total Protein Albumin Urine WBC (Auto) 02/08/20 02/08/20 02/08/20 18:39 19:52 21:34 WBC RBC Hgb Hct Seg Neuts % (Manual) Lymphocytes % (Manual) Nucleated RBC % Seg Neutrophils # Man Lymphocytes # (Manual) APTT D-Dimer ABG pH ABG pO2 ABG HCO3 ABG O2 Saturation ABG Base Excess ABG Hemoglobin Sodium Potassium Chloride Carbon Dioxide BUN Creatinine Glucose POC Glucose 204 H 239 H 209 H Lactic Acid Calcium Phosphorus Magnesium Ferritin Total Protein Albumin Urine WBC (Auto) 02/08/20 02/09/20 02/09/20 23:25 00:35 00:48 WBC RBC Hgb Hct Seg Neuts % (Manual) Lymphocytes % (Manual) Nucleated RBC % Seg Neutrophils # Man Lymphocytes # (Manual) APTT D-Dimer ABG pH ABG pO2 ABG HCO3 ABG O2 Saturation ABG Base Excess ABG Hemoglobin Sodium Potassium Chloride 114.9 H Carbon Dioxide 15 L BUN 28 H Creatinine Glucose 160 H POC Glucose 187 H 160 H Lactic Acid Calcium 8.0 L Phosphorus Magnesium Ferritin Total Protein Albumin Urine WBC (Auto) 02/09/20 02/09/20 02/09/20 01:40 03:04 04:14 WBC RBC Hgb Hct Seg Neuts % (Manual) Lymphocytes % (Manual) Nucleated RBC % Seg Neutrophils # Man Lymphocytes # (Manual) APTT D-Dimer ABG pH ABG pO2 ABG HCO3 ABG O2 Saturation ABG Base Excess ABG Hemoglobin Sodium Potassium Chloride Carbon Dioxide BUN Creatinine Glucose POC Glucose 181 H 136 H 114 H Lactic Acid Calcium Phosphorus Magnesium Ferritin Total Protein Albumin Urine WBC (Auto) 02/09/20 02/09/20 02/09/20 04:18 05:27 06:38 WBC RBC Hgb Hct Seg Neuts % (Manual) Lymphocytes % (Manual) Nucleated RBC % Seg Neutrophils # Man Lymphocytes # (Manual) APTT D-Dimer ABG pH ABG pO2 ABG HCO3 ABG O2 Saturation ABG Base Excess ABG Hemoglobin Sodium Potassium 3.5 L Chloride 117.0 H Carbon Dioxide 19 L BUN 27 H Creatinine Glucose 113 H POC Glucose 151 H 127 H Lactic Acid Calcium 8.2 L Phosphorus Magnesium Ferritin Total Protein Albumin Urine WBC (Auto) 02/09/20 02/09/20 02/09/20 08:14 08:45 12:34 WBC RBC Hgb Hct Seg Neuts % (Manual) Lymphocytes % (Manual) Nucleated RBC % Seg Neutrophils # Man Lymphocytes # (Manual) APTT D-Dimer ABG pH ABG pO2 ABG HCO3 ABG O2 Saturation ABG Base Excess ABG Hemoglobin Sodium Potassium Chloride 114.3 H Carbon Dioxide 16 L BUN 22 H Creatinine Glucose 225 H POC Glucose 140 H 255 H Lactic Acid Calcium 8.1 L Phosphorus Magnesium Ferritin Total Protein Albumin Urine WBC (Auto) 02/09/20 02/09/20 02/09/20 15:49 16:35 17:25 WBC RBC Hgb Hct Seg Neuts % (Manual) Lymphocytes % (Manual) Nucleated RBC % Seg Neutrophils # Man Lymphocytes # (Manual) APTT D-Dimer ABG pH 7.340 L ABG pO2 123.9 H ABG HCO3 19.9 L ABG O2 Saturation ABG Base Excess -5.1 L ABG Hemoglobin Sodium 146 H Potassium Chloride 117.1 H Carbon Dioxide 19 L BUN Creatinine Glucose 242 H POC Glucose 192 H Lactic Acid Calcium 8.2 L Phosphorus Magnesium Ferritin Total Protein Albumin Urine WBC (Auto) 02/09/20 02/10/20 02/10/20 Unknown 00:11 03:46 WBC RBC Hgb Hct Seg Neuts % (Manual) Lymphocytes % (Manual) Nucleated RBC % Seg Neutrophils # Man Lymphocytes # (Manual) APTT D-Dimer ABG pH 7.323 L 7.310 L ABG pO2 164.8 H 112.8 H ABG HCO3 19.7 L ABG O2 Saturation ABG Base Excess -5.9 L -4.8 L ABG Hemoglobin 13.6 L 13.0 L Sodium Potassium Chloride Carbon Dioxide BUN Creatinine Glucose POC Glucose 156 H Lactic Acid Calcium Phosphorus Magnesium Ferritin Total Protein Albumin Urine WBC (Auto) 02/10/20 02/10/20 02/10/20 04:01 05:34 11:38 WBC RBC Hgb Hct Seg Neuts % (Manual) Lymphocytes % (Manual) Nucleated RBC % Seg Neutrophils # Man Lymphocytes # (Manual) APTT D-Dimer ABG pH ABG pO2 ABG HCO3 ABG O2 Saturation ABG Base Excess ABG Hemoglobin Sodium 149 H Potassium Chloride 121.2 H Carbon Dioxide 19 L BUN Creatinine Glucose 184 H POC Glucose 214 H 225 H Lactic Acid Calcium 8.1 L Phosphorus Magnesium Ferritin Total Protein Albumin Urine WBC (Auto) 02/10/20 02/10/20 02/10/20 16:43 17:57 19:46 WBC RBC Hgb Hct Seg Neuts % (Manual) Lymphocytes % (Manual) Nucleated RBC % Seg Neutrophils # Man Lymphocytes # (Manual) APTT D-Dimer 8032.84 H ABG pH 7.295 L ABG pO2 136.3 H ABG HCO3 18.9 L ABG O2 Saturation ABG Base Excess -7.1 L ABG Hemoglobin Sodium Potassium Chloride Carbon Dioxide BUN Creatinine Glucose POC Glucose 194 H Lactic Acid Calcium Phosphorus Magnesium Ferritin Total Protein Albumin Urine WBC (Auto) 02/10/20 02/11/20 02/11/20 19:46 00:12 04:09 WBC RBC Hgb Hct Seg Neuts % (Manual) Lymphocytes % (Manual) Nucleated RBC % Seg Neutrophils # Man Lymphocytes # (Manual) APTT D-Dimer ABG pH ABG pO2 ABG HCO3 ABG O2 Saturation ABG Base Excess ABG Hemoglobin Sodium Potassium Chloride 114.7 H Carbon Dioxide 20 L BUN Creatinine Glucose 247 H POC Glucose 255 H Lactic Acid Calcium Phosphorus Magnesium Ferritin 876.5 H Total Protein 5.9 L Albumin 2.9 L Urine WBC (Auto) 02/11/20 02/11/20 05:40 09:45 WBC RBC Hgb Hct Seg Neuts % (Manual) Lymphocytes % (Manual) Nucleated RBC % Seg Neutrophils # Man Lymphocytes # (Manual) APTT D-Dimer ABG pH 7.326 L ABG pO2 117.1 H ABG HCO3 ABG O2 Saturation ABG Base Excess -4.6 L ABG Hemoglobin 13.8 L Sodium Potassium Chloride Carbon Dioxide BUN Creatinine Glucose POC Glucose 223 H Lactic Acid Calcium Phosphorus Magnesium Ferritin Total Protein Albumin Urine WBC (Auto) Chest x-ray: image reviewed
--- NOTE | 2020-02-11 11:47 | Progress Note ---
Assessment and Plan Cultures: 02/08/2020 urine culture: ?normal skin carlito 02/08/2020 blood culture: No growth in 48 hours A/P: 74-year-old male with hypertension was brought into the emergency room yesterday with altered mental status: #Sepsis: source unclear. ?UTI given evidence of pyuria. SIRS from DKA possible. #Acidosis: DKA, lactate elevated on admission. #SOURAV: Creatinine improving. #Diabetes mellitus, uncontrolled. #Acute encephalopathy: appears to be improving. Recs: continue IV Ceftriaxone 1 gm daily patient without pneumonia, no fever. Vent requirements are minimal. Very low suspicion for COVID-19. OK to d/c isolation. Trisha Null MD, FACP [facility] C: [phone] O: [phone] F: [phone] Subjective Date of service: 02/11/20 Interval history: No fever. Remains on the vent, awake, on pressure support. PUI?: Yes Objective - Exam Narrative Exam: Physical Exam: Constitutional: awake, intubated, on the vent Head, Ears, Nose: Normocephalic, atraumatic. External ears, nose normal Eyes: Conjunctivae/corneas clear. No icterus. No ptosis. Neck: intubated Oral: intubated Cardiovascular: S1, S2 + Respiratory: AE fair bilaterally and equal GI: Soft, bowel sounds + Musculoskeletal: No pedal edema, no cyanosis. Skin: No rash or abscess Hem/Lymphatic: No palpable cervical or supraclavicular nodes. No lymphangitis Psych: no agitation Neurological: awake intubated, on the vent, exam limited - Constitutional Vitals: Vital Signs Temp Pulse Resp BP Pulse Ox 98.2 F 114 H 13 138/69 95 02/11/20 08:00 02/11/20 11:00 02/11/20 11:00 02/11/20 11:00 02/11/20 11:00 Temperature -Last 24 Hours Temperature 98.2 F Temperature 98.5 F Temperature 98.2 F Temperature 97.9 F Temperature 97.9 F Temperature 98.1 F Temperature 98.9 F - Labs CBC & Chem 7: 02/10/20 04:01 02/11/20 04:09 Labs: Abnormal lab results 04/02/10/20 02/10/20 Range/Units 09:12 16:43 17:57 D-Dimer (0-234) ng/mlDDU ABG pH 7.295 L (7.350-7.450) pH Units ABG pO2 136.3 H (80.0-90.0) mm Hg ABG HCO3 18.9 L (20.0-26.0) mmol/L ABG Base Excess -7.1 L (-2.0-3.0) mmol/L ABG Hemoglobin (14.0-18.0) gm/dl Chloride (98-107) mmol/L Carbon Dioxide (22-30) mmol/L Glucose (75-100) mg/dL POC Glucose > 500 H 194 H (70-105) Ferritin (13.0-400.0) ng/mL Total Protein (6.3-8.2) g/dL Albumin (3.9-5) g/dL 02/10/20 02/10/20 02/11/20 Range/Units 19:46 19:46 00:12 D-Dimer 8032.84 H (0-234) ng/mlDDU ABG pH (7.350-7.450) pH Units ABG pO2 (80.0-90.0) mm Hg ABG HCO3 (20.0-26.0) mmol/L ABG Base Excess (-2.0-3.0) mmol/L ABG Hemoglobin (14.0-18.0) gm/dl Chloride (98-107) mmol/L Carbon Dioxide (22-30) mmol/L Glucose (75-100) mg/dL POC Glucose 255 H (70-105) Ferritin 876.5 H (13.0-400.0) ng/mL Total Protein (6.3-8.2) g/dL Albumin (3.9-5) g/dL 02/11/20 02/11/20 02/11/20 Range/Units 04:09 05:40 09:45 D-Dimer (0-234) ng/mlDDU ABG pH 7.326 L (7.350-7.450) pH Units ABG pO2 117.1 H (80.0-90.0) mm Hg ABG HCO3 (20.0-26.0) mmol/L ABG Base Excess -4.6 L (-2.0-3.0) mmol/L ABG Hemoglobin 13.8 L (14.0-18.0) gm/dl Chloride 114.7 H (98-107) mmol/L Carbon Dioxide 20 L (22-30) mmol/L Glucose 247 H (75-100) mg/dL POC Glucose 223 H (70-105) Ferritin (13.0-400.0) ng/mL Total Protein 5.9 L (6.3-8.2) g/dL Albumin 2.9 L (3.9-5) g/dL
[2020-02-11] MEDS: INSULIN GLARGINE 100 UNITS/ML SUB-Q SCH (21:17)
[2020-02-12] MEDS: INSULIN LISPRO 100 UNIT/ML SUB-Q SCH ×4 (00:22→17:00)
--- NOTE | 2020-02-12 06:41 | XRay Report ---
CHEST 1 VIEW 02/12/2020 5:20 AM INDICATION / CLINICAL INFORMATION: follow up respiratory failure. COMPARISON: 02/11/20 FINDINGS: SUPPORT DEVICES: Endotracheal and esophagogastric tubes have been removed. HEART / MEDIASTINUM: No significant abnormality. LUNGS / PLEURA: No significant pulmonary or pleural abnormality. No pneumothorax. ADDITIONAL FINDINGS: No significant additional findings. IMPRESSION: 1. No acute findings. Signer Name: Karon Batres MD Signed: 02/12/2020 6:37 AM Workstation Name: [id number] Week In
[2020-02-12] MEDS: cefTRIAXone/NS 1 GM/50 ML 1 GM/50 ML BAG IV SCH (09:58)
[2020-02-12] MEDS: ENOXAPARIN 100 MG/1 ML INJ SUB-Q SCH ×2 (09:59→22:05)
[2020-02-12] MEDS: FAMOTIDINE 20 MG/2 ML INJ IV SCH ×2 (10:00→22:05)
--- NOTE | 2020-02-12 10:01 | Progress Note ---
Assessment and Plan Assessment and plan: Patient currently intubated history obtained from ED documentation patient is 74-year-old male with history of hypertension. Patient brought to the emergency room via EMS from home for evaluation of altered mental status and decreased responsiveness. EMS stated that patient stated that last time he was normal was 9 PM when he went to bed. denied any history of seizure. She also denied any history of previous stroke. She also informed EMS that he did not have any fever or chills recently. Stroke protocol immediately initiated and patient moved to CT for stat CT brain. Upon return from the CT patient became more obtunded, patient is unable to maintain his airway. Patient immediately intubated by me using a glide scope with ET tube confirmation by direct visualization, capnometry and good breath sounds on both side. Sepsis protocol also initiated for possible sepsis. * On arrival to the hospital patient was noted to have a blood sugar of over 800. * BG improved, Acute hypoxic respiratory failure Hyperosmotic hyperglycemic nonketotic state versus DKA Sepsis possible acute cystitis Discussed with infectious disease patient not a candidate for COVID low suspicion at this time.-Isolation discontinued Acute metabolic encephalopathy Metabolic acidosis Hypernatremia- Improved Plan Continue supportive care vent management per forest fire officer Patient has been successfully extubated. Will be transferred to telemetry today. Neurology input noted ID input noted Change fluids to D5W AND MONITOR SODIUM. will stop fluids once patient is tolerating PO diet Await further imaging studies including MRI when stable Per infectious disease patient is not a candidate for COVID testing as low suspicion. Renal function is improving at this point Adjust insulin therapy Continue antibiotics as dictated by ID Isolation discontinued as patient not a candidate for COVID tested due to low suspicion. DVT and GI prophylaxis We will obtain PT OT evaluation and anticipate discharging 24 to 48 hours History Interval history: Patient seen and examined, patient has been successfully extubated and doing well the last about 12 hours will likely be transferred up to the floor. PUI?: No Hospitalist Physical - Physical exam Narrative exam: VITAL SIGNS: Reviewed. GENERAL: The patient appears normally developed, vital signs as documented. HEAD: No signs of head trauma. EYES: Pupils are equal. EARS: Unable to examine. MOUTH: Oral intact NECK: No adenopathy, no JVD. CHEST: Chest with diminished breath sounds bilaterally. No wheezes, rales, or rhonchi. CARDIAC: Regular rate and rhythm. S1 and S2, without murmurs, gallops, or rubs. VASCULAR: No Edema. Peripheral pulses normal and equal in all extremities. ABDOMEN: Soft, non distended. No rebound or guarding, and no masses palpated. Bowel Sounds normal. MUSCULOSKELETAL: Extremities without clubbing, cyanosis or edema. NEUROLOGIC EXAM: Moves all extremities PSYCHIATRIC: Calm SKIN: detail exam as documented in skin assessment - Constitutional Vitals: Temp Pulse Resp BP Pulse Ox 98.9 F 84 13 149/70 92 02/12/20 03:09 02/12/20 06:14 02/12/20 06:00 02/12/20 06:00 02/12/20 06:00 Results - Labs CBC & Chem 7: 02/10/20 04:01 02/11/20 04:09 Labs: Laboratory Last Values WBC 11.0 K/mm3 (4.5-11.0) 02/10/20 04:01 RBC 4.53 M/mm3 (3.65-5.03) 02/10/20 04:01 Hgb 13.2 gm/dl (11.8-15.2) 02/10/20 04:01 Hct 39.6 % (35.5-45.6) D 02/10/20 04:01 MCV 87 fl (84-94) 02/10/20 04:01 MCH 29 pg (28-32) 02/10/20 04:01 MCHC 33 % (32-34) 02/10/20 04:01 RDW 14.5 % (13.2-15.2) 02/10/20 04:01 Plt Count 144 K/mm3 (140-440) 02/10/20 04:01 Lymph % (Auto) Research Mechanic 02/08/20 09:55 Buchanan % (Auto) Research Mechanic 02/08/20 09:55 Eos % (Auto) Research Mechanic 02/08/20 09:55 Baso % (Auto) Research Mechanic 02/08/20 09:55 Lymph # Research Mechanic 02/08/20 09:55 Buchanan # Research Mechanic 02/08/20 09:55 Eos # Research Mechanic 02/08/20 09:55 Baso # Research Mechanic 02/08/20 09:55 Add Manual Diff Complete 02/08/20 09:55 Total Counted 100 02/08/20 09:55 Seg Neutrophils % Research Mechanic 02/08/20 09:55 Seg Neuts % (Manual) 94.0 % (40.0-70.0) H 02/08/20 09:55 Band Neutrophils % 0 % 02/08/20 09:55 Lymphocytes % (Manual) 2.0 % (13.4-35.0) L 02/08/20 09:55 Reactive Lymphs % (Man) 0 % 02/08/20 09:55 Monocytes % (Manual) 4.0 % (0.0-7.3) 02/08/20 09:55 Eosinophils % (Manual) 0 % (0.0-4.3) 02/08/20 09:55 Basophils % (Manual) 0 % (0.0-1.8) 02/08/20 09:55 Metamyelocytes % 0 % 02/08/20 09:55 Myelocytes % 0 % 02/08/20 09:55 Promyelocytes % 0 % 02/08/20 09:55 Blast Cells % 0 % 02/08/20 09:55 Nucleated RBC % 1.0 % (0.0-0.9) H 02/08/20 09:55 Seg Neutrophils # Research Mechanic 02/08/20 09:55 Seg Neutrophils # Man 19.7 K/mm3 (1.8-7.7) H 02/08/20 09:55 Band Neutrophils # 0.0 K/mm3 02/08/20 09:55 Lymphocytes # (Manual) 0.4 K/mm3 (1.2-5.4) L 02/08/20 09:55 Abs React Lymphs (Man) 0.0 K/mm3 02/08/20 09:55 Monocytes # (Manual) 0.8 K/mm3 (0.0-0.8) 02/08/20 09:55 Eosinophils # (Manual) 0.0 K/mm3 (0.0-0.4) 02/08/20 09:55 Basophils # (Manual) 0.0 K/mm3 (0.0-0.1) 02/08/20 09:55 Metamyelocytes # 0.0 K/mm3 02/08/20 09:55 Myelocytes # 0.0 K/mm3 02/08/20 09:55 Promyelocytes # 0.0 K/mm3 02/08/20 09:55 Blast Cells # 0.0 K/mm3 02/08/20 09:55 WBC Morphology Not Reportable 02/08/20 09:55 Hypersegmented Neuts Not Reportable 02/08/20 09:55 Hyposegmented Neuts Not Reportable 02/08/20 09:55 Hypogranular Neuts Not Reportable 02/08/20 09:55 Smudge Cells Not Reportable 02/08/20 09:55 Toxic Granulation Not Reportable 02/08/20 09:55 Toxic Vacuolation Not Reportable 02/08/20 09:55 Dohle Bodies Not Reportable 02/08/20 09:55 Pelger-Huet Anomaly Not Reportable 02/08/20 09:55 Tanner Rods Not Reportable 02/08/20 09:55 Platelet Estimate Consistent w auto 02/08/20 09:55 Clumped Platelets Not Reportable 02/08/20 09:55 Plt Clumps, EDTA Not Reportable 02/08/20 09:55 Large Platelets Rare 02/08/20 09:55 Giant Platelets Not Reportable 02/08/20 09:55 Platelet Satelliting Not Reportable 02/08/20 09:55 Plt Morphology Comment Not Reportable 02/08/20 09:55 RBC Morphology Normal 02/08/20 09:55 Dimorphic RBCs Not Reportable 02/08/20 09:55 Polychromasia Not Reportable 02/08/20 09:55 Hypochromasia Not Reportable 02/08/20 09:55 Poikilocytosis Not Reportable 02/08/20 09:55 Anisocytosis Not Reportable 02/08/20 09:55 Microcytosis Not Reportable 02/08/20 09:55 Macrocytosis Not Reportable 02/08/20 09:55 Spherocytes Not Reportable 02/08/20 09:55 Pappenheimer Bodies Not Reportable 02/08/20 09:55 Sickle Cells Not Reportable 02/08/20 09:55 Target Cells Not Reportable 02/08/20 09:55 Tear Drop Cells Not Reportable 02/08/20 09:55 Ovalocytes Not Reportable 02/08/20 09:55 Helmet Cells Not Reportable 02/08/20 09:55 Zavala-Heathcote Bodies Not Reportable 02/08/20 09:55 [place] Rings Not Reportable 02/08/20 09:55 Lili Cells Not Reportable 02/08/20 09:55 Bite Cells Not Reportable 02/08/20 09:55 Crenated Cell Not Reportable 02/08/20 09:55 Elliptocytes Not Reportable 02/08/20 09:55 Acanthocytes (Spur) Not Reportable 02/08/20 09:55 Rouleaux Not Reportable 02/08/20 09:55 Hemoglobin C Crystals Not Reportable 02/08/20 09:55 Schistocytes Not Reportable 02/08/20 09:55 Malaria parasites Not Reportable 02/08/20 09:55 Clement Bodies Not Reportable 02/08/20 09:55 Hem Pathologist Commnt No 02/08/20 09:55 PT 13.5 Sec. (12.2-14.9) 02/08/20 09:55 INR 1.02 (0.87-1.13) 02/08/20 09:55 APTT 23.2 Sec. (24.2-36.6) L 02/08/20 09:55 Thrombin Time 18.6 Sec. (15.1-19.6) 02/08/20 09:55 D-Dimer 8032.84 ng/mlDDU (0-234) H 02/10/20 19:46 ABG pH 7.326 pH Units (7.350-7.450) L 02/11/20 09:45 ABG pCO2 41.3 mm Hg 02/11/20 09:45 ABG pO2 117.1 mm Hg (80.0-90.0) H 02/11/20 09:45 ABG HCO3 21.1 mmol/L (20.0-26.0) 02/11/20 09:45 ABG O2 Saturation 98.0 % (95.0-99.0) 02/11/20 09:45 ABG O2 Content 18.8 (0.0-44) 02/11/20 09:45 ABG Base Excess -4.6 mmol/L (-2.0-3.0) L 02/11/20 09:45 ABG Hemoglobin 13.8 gm/dl (14.0-18.0) L 02/11/20 09:45 ABG Carboxyhemoglobin 1.3 % (0.0-5.0) 02/11/20 09:45 ABG Methemoglobin 0.7 % (0.0-1.5) 02/11/20 09:45 Oxyhemoglobin 96.1 % (95.0-99.0) 02/11/20 09:45 FiO2 30 % 02/11/20 09:45 Sodium 144 mmol/L (137-145) 02/11/20 04:09 Potassium 4.0 mmol/L (3.6-5.0) 02/11/20 04:09 Chloride 114.7 mmol/L (98-107) H 02/11/20 04:09 Carbon Dioxide 20 mmol/L (22-30) L 02/11/20 04:09 Anion Gap 13 mmol/L 02/11/20 04:09 BUN 14 mg/dL (9-20) 02/11/20 04:09 Creatinine 1.2 mg/dL (0.8-1.5) 02/11/20 04:09 Estimated GFR 59 ml/min 02/11/20 04:09 BUN/Creatinine Ratio 12 % 02/11/20 04:09 Glucose 247 mg/dL (75-100) H 02/11/20 04:09 POC Glucose 155 (70-105) H 02/12/20 05:31 Lactic Acid 1.60 mmol/L (0.7-2.0) 02/08/20 13:55 Calcium 8.5 mg/dL (8.4-10.2) 02/11/20 04:09 Phosphorus 2.20 mg/dL (2.5-4.5) L D 02/08/20 18:10 Magnesium 2.40 mg/dL (1.7-2.3) H 02/08/20 18:10 Ferritin 876.5 ng/mL (13.0-400.0) H 02/10/20 19:46 Total Bilirubin 0.50 mg/dL (0.1-1.2) 02/11/20 04:09 Direct Bilirubin < 0.2 mg/dL (0-0.2) 02/08/20 09:55 Indirect Bilirubin 0.1 mg/dL 02/08/20 09:55 AST 23 units/L (5-40) 02/11/20 04:09 ALT 16 units/L (7-56) 02/11/20 04:09 Alkaline Phosphatase 76 units/L (35-129) 02/11/20 04:09 Lactate Dehydrogenase 140 units/L (91-180) 02/08/20 09:55 Total Creatine Kinase 69 units/L (55-170) 02/08/20 09:55 CK-MB (CK-2) 1.2 ng/mL (0.0-4.0) 02/08/20 09:55 CK-MB (CK-2) Rel Index 1.7 (0-4) 02/08/20 09:55 Troponin T < 0.010 ng/mL (0.00-0.029) 02/08/20 09:55 Troponin T < 0.010 ng/mL (0.00-0.029) 02/08/20 09:55 C-Reactive Protein 0.30 mg/dL (0.00-1.30) 02/08/20 09:55 Total Protein 5.9 g/dL (6.3-8.2) L 02/11/20 04:09 Albumin 2.9 g/dL (3.9-5) L 02/11/20 04:09 Albumin/Globulin Ratio 1.0 % 02/11/20 04:09 Procalcitonin 0.52 ng/mL (<0.15) 02/10/20 19:46 Urine Color Yellow (Yellow) 02/08/20 11:36 Urine Turbidity Slightly-cloudy (Clear) 02/08/20 11:36 Urine pH 5.0 (5.0-7.0) 02/08/20 11:36 Ur Specific Leland 1.024 (1.003-1.030) 02/08/20 11:36 Urine Protein <15 mg/dl mg/dL (Negative) 02/08/20 11:36 Urine Glucose (UA) >=500 mg/dL (Negative) 02/08/20 11:36 Urine Ketones Tr mg/dL (Negative) 02/08/20 11:36 Urine Blood Mod (Negative) 02/08/20 11:36 Urine Nitrite Pos (Negative) 02/08/20 11:36 Urine Bilirubin Neg (Negative) 02/08/20 11:36 Urine Urobilinogen < 2.0 mg/dL (<2.0) 02/08/20 11:36 Ur Leukocyte Esterase Sm (Negative) 02/08/20 11:36 Urine WBC (Auto) 65.0 /HPF (0.0-6.0) H 02/08/20 11:36 Urine RBC (Auto) 15.0 /HPF (0.0-6.0) 02/08/20 11:36 Urine Bacteria (Auto) 1+ /HPF (Negative) 02/08/20 11:36 Urine Yeast (Budding) 2+ /HPF 02/08/20 11:36 Urine Opiates Screen Presumptive negative 02/08/20 11:36 Urine Methadone Screen Presumptive negative 02/08/20 11:36 Ur Barbiturates Screen Presumptive negative 02/08/20 11:36 Ur Phencyclidine Scrn Presumptive negative 02/08/20 11:36 Ur Amphetamines Screen Presumptive negative 02/08/20 11:36 U Benzodiazepines Scrn Presumptive negative 02/08/20 11:36 Urine Cocaine Screen Presumptive negative 02/08/20 11:36 U Marijuana (THC) Screen Presumptive negative 02/08/20 11:36 Drugs of Abuse Note Disclamer 02/08/20 11:36 Plasma/Serum Alcohol < 0.01 % (0-0.07) 02/08/20 09:55 Microbiology: Microbiology 02/08/20 11:36 Urine,Clean Catch Urine Culture - Final 02/08/20 Unknown Sputum - Endotracheal Wash Sputum Culture - Final 02/08/20 Unknown Peripheral/Venous Blood Culture - Preliminary NO GROWTH AFTER 72 HOURS 02/08/20 Unknown Peripheral/Venous Blood Culture - Preliminary NO GROWTH AFTER 72 HOURS Torres/IV: Voiding Method Nephrostomy (Right) IV Catheter Type [Left Forearm Peripheral IV ] IV Catheter Type [Right INT / Saline Lock Antecubital] IV Catheter Type [Right Hand] Peripheral IV Active Medications - Current Medications Current Medications: Generic Name Dose Route Start Last Admin Trade Name Freq PRN Reason Stop Dose Admin Lipase/Protease/Amylase 1 each 02/08/20 16:27 Pancreaze 10,500 Unit FEEDTUBE PRN PRN For Clogged Feeding Tube Dextrose 50 ml 02/09/20 08:30 D50w (25gm) Syringe IV Q30MIN PRN Hypoglycemia Protocol Enoxaparin Sodium 90 mg 02/11/20 10:00 02/11/20 21:16 Enoxaparin SUB-Q 90 mg Q12HR UBALDO Administration Famotidine 20 mg 02/09/20 10:00 02/11/20 21:17 Pepcid IV 20 mg BID UBALDO Administration Hydromorphone HCl 0.5 mg 02/08/20 16:27 Dilaudid IV Q3H PRN Pain , Severe (7-10) Hydrophilic Ointment 1 applic 02/08/20 11:37 Vaseline Lip Therapy TP Q2HR PRN Dry Lips Ceftriaxone Sodium 1 gm in 50 mls @ 100 mls/hr 02/10/20 11:00 02/11/20 09:37 Rocephin/Ns 1 Gm/50 Ml IV 100 mls/hr Q24HR UBALDO Administration Protocol Insulin Glargine 16 units 02/09/20 22:00 02/11/20 21:17 Lantus SUB-Q 16 units QHS UBALDO Administration Insulin Human Lispro 0 unit 02/09/20 12:00 02/12/20 05:34 Humalog SUB-Q Not Given Q6HR [facility] Protocol Morphine Sulfate 2 mg 02/08/20 16:27 Morphine IV Q4H PRN Pain, Moderate (4-6) Multi-Ingred Cream/Lotion/Oil/Oint 1 applic 02/08/20 11:37 Artificial Tears Ophth Oint OU Q4HR PRN Dry Eye(s) Simple Syrup 15 ml 02/08/20 16:27 Simple Syrup FEEDTUBE PRN PRN Hypoglycemia Simple Syrup 30 ml 02/08/20 16:27 Simple Syrup FEEDTUBE PRN PRN Hypoglycemia Sodium Bicarbonate 325 mg 02/08/20 16:27 Sodium Bicarbonate FEEDTUBE PRN PRN For Clogged Feeding Tube Sodium Chloride 10 ml 02/08/20 22:00 02/11/20 21:18 Sodium Chloride Flush Syringe 10 Ml IV 10 ml BID UBALDO Administration Sodium Chloride 10 ml 02/08/20 16:27 Sodium Chloride Flush Syringe 10 Ml IV PRN PRN LINE FLUSH Nutrition/Malnutrition Assess - Dietary Evaluation Nutrition/Malnutrition Findings: Nutrition Notes Start: 02/09/20 07:55 Freq: Status: Active Protocol: Document 02/11/20 12:19 LM (Rec: 02/11/20 12:29 LM [email or web address]) Nutrition Notes Initial or Follow up Brief Note Current Diagnosis Diabetes,Sepsis,Hypertension Other Pertinent Diagnosis AMS, DKA Current Diet Vital AF 1.2 at 65ml/hr Labs/Tests BG 247 Pertinent Medications BG 247 D5W at 75ml/hr Humalog Propofol at 2.625ml/hr (69kcal ) Height 5 ft 10 in Weight 87.5 kg [place] Body Weight (kg) 75.45 BMI 27.6 Weight Status Overweight Subjective/Other Information Per RN, TF on hold due to pt not having KUB. plans to extubate pt. Pt also not being tested for COVID-19. Nutrition Intervention Follow-Up By: 02/15/20 Additional Comments F/U for vent status/diet advancement
--- NOTE | 2020-02-12 11:56 | Progress Note ---
Assessment and Plan Cultures: 02/08/2020 urine culture: ?normal skin carlito 02/08/2020 blood culture: No growth in 48 hours A/P: 74-year-old male with hypertension was brought into the emergency room yesterday with altered mental status: #Sepsis: source unclear. ?UTI given evidence of pyuria. SIRS from DKA possible. #Acidosis: DKA, lactate elevated on admission. #SOURAV: Creatinine improving. #Diabetes mellitus, uncontrolled. #Acute encephalopathy: appears to be improving. Recs: completed empiric abx course. Ceftriaxone discontinued. Trisha Null MD, FACP [facility] ([facility]) C: [phone] O: [phone] F: [phone] Subjective Date of service: 02/12/20 Interval history: Since last seen, he has been extubated. No fever. Denies any complaints. Asking to drink water. PUI?: No Objective - Exam Narrative Exam: Physical Exam: Constitutional: awake, no distress Head, Ears, Nose: Normocephalic, atraumatic. External ears, nose normal Eyes: Conjunctivae/corneas clear. No icterus. No ptosis. Neck: supple, no meningeal signs Cardiovascular: S1, S2 + Respiratory: AE fair bilaterally and equal GI: Soft, bowel sounds + Musculoskeletal: No pedal edema, no cyanosis. Skin: No rash or abscess Hem/Lymphatic: No palpable cervical or supraclavicular nodes. No lymphangitis Psych: no agitation Neurological: awake, alert, answering questions - Constitutional Vitals: Vital Signs Temp Pulse Resp BP Pulse Ox 98.2 F 101 H 15 170/81 97 02/12/20 08:00 02/12/20 10:15 02/12/20 10:15 02/12/20 10:15 02/12/20 10:15 Temperature -Last 24 Hours Temperature 98.2 F Temperature 98.9 F Temperature 99.8 F Temperature 98.6 F Temperature 99.6 F Temperature 98.7 F Temperature 98.4 F - Labs CBC & Chem 7: 02/10/20 04:01 02/11/20 04:09 Labs: Abnormal lab results 02/11/20 02/11/20 02/12/20 Range/Units 17:51 21:27 00:24 POC Glucose 199 H 175 H 172 H (70-105) 02/12/20 Range/Units 05:31 POC Glucose 155 H (70-105)
--- NOTE | 2020-02-12 12:30 | Progress Note ---
Assessment and Plan Acute hypoxemic respiratory failure s/p MVS Acute encephalopathy, toxic metabolic. Diabetic ketoacidosis vs hyperosmolar non ketotic state Sepsis probably secondary to cysitis/UTI Leukocytosis. Acute kidney injury- improving Hypernatremia- improving --continue to wean supplemental oxygen for target O2 sats > 90% -ABG, CXR prn -Incentive spiromtry with airway clearance techniques -Free water and hypotonic solutions for hypernatremia -Avoid nephrotoxins, renal dosing of all medications -PT/OT to evaluate and treat -Aspiration precautions HOB >40 -Bedside swallow evaluation- if he passes it initiate a diet - continue bronchodilators with pulmonary hygiene per RT - accuchecks with glycemic control per SSI (While critically ill target blood glucose of 140-180 mg/dL; avoid hypoglycemia) -Care per DKA protocol- currently off insulin infusion. - continue to avoid benzodiazepines, reduce the possibility of delirium -Antibiotics per ID. De-escalate based on ANGELITO and culture results - prn analgesia per CPOT score - G.I. & VTE prophylaxis - PT/OT/ROM exercises - continue mobility protocol, off loading and skin assessment for pressure ulcer prevention -Ostomy care- requesting that his bring in his urine bags - Monitor hemodynamics closely - continue other care per attending / other consultants OK to transfer to regular floor with remote telemetry Subjective Date of service: 02/12/20 Interval history: Patient is seen today for: Acute hypoxemic respiratory failure; Acute ence phalopathy; DKA; Sepsis secondary to cystitis/UTI; SOURAV Seen and examined at bedside; 24hour events reviewed; nursing and respiratory care staff consulted; no adverse overnight events reported to me; extubated yesterday on supplemetnal oxygen and doing well ;no new overnight events reported; no fevers; no diarrhea or vomiting, PUI?: No Objective - Exam Narrative Exam: Vitals reviewed Constitutional: no acute distress, other (elderly looking CM, normocephalic with mildly increased resp effort on supplemental oxygen) Eyes: non-icteric ENT: oropharynx moist, other Neck: supple, no lymphadenopathy, no JVD Effort: mildly labored Ascultation: Bilateral: diminished breath sounds, rhonchi Percussion: Bilateral: not dull Cardiovascular: regular rate and rhythm Gastrointestinal: normoactive bowel sounds, soft, non-tender, non-distended Ostomy bag Integumentary: normal Extremities: no cyanosis, no edema, pink and warm, pulses normal Neurologic: nonormal affect; normal mood Vital Signs - 12hr 02/12/20 02/12/20 02/12/20 00:31 00:45 01:00 Temperature Pulse Rate 106 H 100 H 99 H Respiratory 17 9 L 8 L Rate Blood Pressure 123/58 123/58 145/80 O2 Sat by Pulse 98 98 95 Oximetry 02/12/20 02/12/20 02/12/20 01:15 01:30 01:45 Temperature Pulse Rate 99 H 93 H 86 Respiratory 8 L 11 L 10 L Rate Blood Pressure 145/80 145/80 145/80 O2 Sat by Pulse 97 97 96 Oximetry 02/12/20 02/12/20 02/12/20 02:00 02:15 02:25 Temperature Pulse Rate 88 100 H Respiratory 13 13 Rate Blood Pressure 152/71 152/71 O2 Sat by Pulse 94 96 94 Oximetry 02/12/20 02/12/20 02/12/20 02:31 02:45 03:00 Temperature Pulse Rate 88 84 88 Respiratory 8 L 13 13 Rate Blood Pressure 152/71 152/71 148/68 O2 Sat by Pulse 97 96 96 Oximetry 02/12/20 02/12/20 02/12/20 03:09 03:15 03:31 Temperature 98.9 F Pulse Rate 84 84 Respiratory 13 13 Rate Blood Pressure 152/71 152/71 O2 Sat by Pulse 97 97 Oximetry 02/12/20 02/12/20 02/12/20 03:45 04:01 04:10 Temperature Pulse Rate 87 103 H 101 H Respiratory 13 19 Rate Blood Pressure 152/71 163/73 O2 Sat by Pulse 96 97 94 Oximetry 02/12/20 02/12/20 02/12/20 04:15 04:31 04:45 Temperature Pulse Rate 101 H 95 H 91 H Respiratory 15 11 L 10 L Rate Blood Pressure 163/73 163/73 163/73 O2 Sat by Pulse 97 95 97 Oximetry 02/12/20 02/12/20 02/12/20 05:00 05:15 05:31 Temperature Pulse Rate 93 H 86 86 Respiratory 14 13 13 Rate Blood Pressure 160/71 160/71 160/71 O2 Sat by Pulse 93 95 96 Oximetry 02/12/20 02/12/20 02/12/20 05:45 06:00 06:14 Temperature Pulse Rate 98 H 84 84 Respiratory 12 13 Rate Blood Pressure 160/71 149/70 O2 Sat by Pulse 88 92 Oximetry 02/12/20 02/12/20 02/12/20 06:15 06:31 06:45 Temperature Pulse Rate 93 H 86 91 H Respiratory 14 12 15 Rate Blood Pressure 149/70 149/70 149/70 O2 Sat by Pulse 93 96 Oximetry 02/12/20 02/12/20 02/12/20 07:00 07:15 07:31 Temperature Pulse Rate 92 H 90 103 H Respiratory 13 14 10 L Rate Blood Pressure 160/81 160/81 160/81 O2 Sat by Pulse 99 100 Oximetry 02/12/20 02/12/20 02/12/20 07:45 08:00 08:15 Temperature 98.2 F Pulse Rate 95 H 96 H 94 H Respiratory 8 L 9 L 8 L Rate Blood Pressure 160/81 166/82 166/82 O2 Sat by Pulse 100 98 Oximetry 02/12/20 02/12/20 02/12/20 08:31 08:45 09:00 Temperature Pulse Rate 101 H 100 H 97 H Respiratory 8 L 8 L 7 L Rate Blood Pressure 166/82 166/82 177/82 O2 Sat by Pulse 99 99 97 Oximetry 02/12/20 02/12/20 02/12/20 09:15 09:31 09:45 Temperature Pulse Rate 99 H 99 H 109 H Respiratory 11 L 9 L 14 Rate Blood Pressure 177/82 177/82 177/82 O2 Sat by Pulse 99 99 100 Oximetry 02/12/20 02/12/20 02/12/20 10:00 10:10 10:15 Temperature Pulse Rate 97 H 101 H Respiratory 10 L 15 Rate Blood Pressure 170/81 170/81 O2 Sat by Pulse 97 99 97 Oximetry CBC and BMP: 02/14/20 03:43 02/14/20 03:43 ABG, PT/INR, D-dimer: ABG ABG pH 7.326 pH Units (7.350-7.450) L 02/11/20 09:45 ABG pCO2 41.3 mm Hg 02/11/20 09:45 ABG pO2 117.1 mm Hg (80.0-90.0) H 02/11/20 09:45 ABG O2 Saturation 98.0 % (95.0-99.0) 02/11/20 09:45 PT/INR, D-dimer PT 13.5 Sec. (12.2-14.9) 02/08/20 09:55 INR 1.02 (0.87-1.13) 02/08/20 09:55 D-Dimer 8032.84 ng/mlDDU (0-234) H 02/10/20 19:46 Abnormal lab findings: Abnormal Labs 02/08/20 02/08/20 02/08/20 09:12 09:55 09:55 WBC 21.0 H RBC 5.59 H Hgb 16.0 H Hct 50.0 H Seg Neuts % (Manual) 94.0 H Lymphocytes % (Manual) 2.0 L Nucleated RBC % 1.0 H Seg Neutrophils # Man 19.7 H Lymphocytes # (Manual) 0.4 L APTT 23.2 L D-Dimer 299.15 H ABG pH ABG pO2 ABG HCO3 ABG O2 Saturation ABG Base Excess ABG Hemoglobin Sodium Potassium Chloride Carbon Dioxide BUN Creatinine Glucose POC Glucose > 500 H Lactic Acid Calcium Phosphorus Magnesium Ferritin Total Protein Albumin Urine WBC (Auto) 02/08/20 02/08/20 02/08/20 09:55 09:55 10:30 WBC RBC Hgb Hct Seg Neuts % (Manual) Lymphocytes % (Manual) Nucleated RBC % Seg Neutrophils # Man Lymphocytes # (Manual) APTT D-Dimer ABG pH 7.275 L ABG pO2 365.1 H ABG HCO3 17.4 L ABG O2 Saturation 99.5 H ABG Base Excess -8.7 L ABG Hemoglobin Sodium 128 L Potassium 5.1 H Chloride 91.4 L Carbon Dioxide 10 L BUN 38 H Creatinine 2.7 H Glucose 803 H* POC Glucose Lactic Acid Calcium Phosphorus Magnesium Ferritin 861.7 H Total Protein 5.9 L Albumin 3.5 L Urine WBC (Auto) 02/08/20 02/08/20 02/08/20 10:45 11:36 11:40 WBC RBC Hgb Hct Seg Neuts % (Manual) Lymphocytes % (Manual) Nucleated RBC % Seg Neutrophils # Man Lymphocytes # (Manual) APTT D-Dimer ABG pH ABG pO2 ABG HCO3 ABG O2 Saturation ABG Base Excess ABG Hemoglobin Sodium Potassium Chloride Carbon Dioxide BUN Creatinine Glucose POC Glucose Lactic Acid 6.10 H* Calcium Phosphorus Magnesium 2.70 H Ferritin Total Protein Albumin Urine WBC (Auto) 65.0 H 02/08/20 02/08/20 02/08/20 11:40 13:21 13:55 WBC RBC Hgb Hct Seg Neuts % (Manual) Lymphocytes % (Manual) Nucleated RBC % Seg Neutrophils # Man Lymphocytes # (Manual) APTT D-Dimer ABG pH ABG pO2 ABG HCO3 ABG O2 Saturation ABG Base Excess ABG Hemoglobin Sodium 130 L 135 L Potassium 5.1 H Chloride 91.5 L Carbon Dioxide 14 L 11 L BUN 38 H 34 H Creatinine 2.3 H 2.1 H Glucose 727 H* 473 H POC Glucose > 500 H Lactic Acid Calcium 8.3 L Phosphorus Magnesium Ferritin Total Protein Albumin Urine WBC (Auto) 02/08/20 02/08/20 02/08/20 14:36 15:15 15:48 WBC RBC Hgb Hct Seg Neuts % (Manual) Lymphocytes % (Manual) Nucleated RBC % Seg Neutrophils # Man Lymphocytes # (Manual) APTT D-Dimer ABG pH ABG pO2 ABG HCO3 ABG O2 Saturation ABG Base Excess ABG Hemoglobin Sodium Potassium Chloride 108.8 H Carbon Dioxide 15 L BUN 34 H Creatinine 2.0 H Glucose 293 H POC Glucose 342 H 305 H Lactic Acid Calcium 8.1 L Phosphorus Magnesium Ferritin Total Protein Albumin Urine WBC (Auto) 02/08/20 02/08/20 02/08/20 17:00 18:10 18:10 WBC RBC Hgb Hct Seg Neuts % (Manual) Lymphocytes % (Manual) Nucleated RBC % Seg Neutrophils # Man Lymphocytes # (Manual) APTT D-Dimer ABG pH ABG pO2 ABG HCO3 ABG O2 Saturation ABG Base Excess ABG Hemoglobin Sodium Potassium Chloride 107.4 H Carbon Dioxide 16 L BUN 31 H Creatinine 2.1 H Glucose 216 H POC Glucose 249 H Lactic Acid Calcium Phosphorus 2.20 L D Magnesium 2.40 H Ferritin Total Protein Albumin Urine WBC (Auto) 02/08/20 02/08/20 02/08/20 18:39 19:52 21:34 WBC RBC Hgb Hct Seg Neuts % (Manual) Lymphocytes % (Manual) Nucleated RBC % Seg Neutrophils # Man Lymphocytes # (Manual) APTT D-Dimer ABG pH ABG pO2 ABG HCO3 ABG O2 Saturation ABG Base Excess ABG Hemoglobin Sodium Potassium Chloride Carbon Dioxide BUN Creatinine Glucose POC Glucose 204 H 239 H 209 H Lactic Acid Calcium Phosphorus Magnesium Ferritin Total Protein Albumin Urine WBC (Auto) 02/08/20 02/09/20 02/09/20 23:25 00:35 00:48 WBC RBC Hgb Hct Seg Neuts % (Manual) Lymphocytes % (Manual) Nucleated RBC % Seg Neutrophils # Man Lymphocytes # (Manual) APTT D-Dimer ABG pH ABG pO2 ABG HCO3 ABG O2 Saturation ABG Base Excess ABG Hemoglobin Sodium Potassium Chloride 114.9 H Carbon Dioxide 15 L BUN 28 H Creatinine Glucose 160 H POC Glucose 187 H 160 H Lactic Acid Calcium 8.0 L Phosphorus Magnesium Ferritin Total Protein Albumin Urine WBC (Auto) 02/09/20 02/09/20 02/09/20 01:40 03:04 04:14 WBC RBC Hgb Hct Seg Neuts % (Manual) Lymphocytes % (Manual) Nucleated RBC % Seg Neutrophils # Man Lymphocytes # (Manual) APTT D-Dimer ABG pH ABG pO2 ABG HCO3 ABG O2 Saturation ABG Base Excess ABG Hemoglobin Sodium Potassium Chloride Carbon Dioxide BUN Creatinine Glucose POC Glucose 181 H 136 H 114 H Lactic Acid Calcium Phosphorus Magnesium Ferritin Total Protein Albumin Urine WBC (Auto) 02/09/20 02/09/20 02/09/20 04:18 05:27 06:38 WBC RBC Hgb Hct Seg Neuts % (Manual) Lymphocytes % (Manual) Nucleated RBC % Seg Neutrophils # Man Lymphocytes # (Manual) APTT D-Dimer ABG pH ABG pO2 ABG HCO3 ABG O2 Saturation ABG Base Excess ABG Hemoglobin Sodium Potassium 3.5 L Chloride 117.0 H Carbon Dioxide 19 L BUN 27 H Creatinine Glucose 113 H POC Glucose 151 H 127 H Lactic Acid Calcium 8.2 L Phosphorus Magnesium Ferritin Total Protein Albumin Urine WBC (Auto) 02/09/20 02/09/20 02/09/20 08:14 08:45 12:34 WBC RBC Hgb Hct Seg Neuts % (Manual) Lymphocytes % (Manual) Nucleated RBC % Seg Neutrophils # Man Lymphocytes # (Manual) APTT D-Dimer ABG pH ABG pO2 ABG HCO3 ABG O2 Saturation ABG Base Excess ABG Hemoglobin Sodium Potassium Chloride 114.3 H Carbon Dioxide 16 L BUN 22 H Creatinine Glucose 225 H POC Glucose 140 H 255 H Lactic Acid Calcium 8.1 L Phosphorus Magnesium Ferritin Total Protein Albumin Urine WBC (Auto) 02/09/20 02/09/20 02/09/20 15:49 16:35 17:25 WBC RBC Hgb Hct Seg Neuts % (Manual) Lymphocytes % (Manual) Nucleated RBC % Seg Neutrophils # Man Lymphocytes # (Manual) APTT D-Dimer ABG pH 7.340 L ABG pO2 123.9 H ABG HCO3 19.9 L ABG O2 Saturation ABG Base Excess -5.1 L ABG Hemoglobin Sodium 146 H Potassium Chloride 117.1 H Carbon Dioxide 19 L BUN Creatinine Glucose 242 H POC Glucose 192 H Lactic Acid Calcium 8.2 L Phosphorus Magnesium Ferritin Total Protein Albumin Urine WBC (Auto) 02/09/20 02/10/20 02/10/20 Unknown 00:11 03:46 WBC RBC Hgb Hct Seg Neuts % (Manual) Lymphocytes % (Manual) Nucleated RBC % Seg Neutrophils # Man Lymphocytes # (Manual) APTT D-Dimer ABG pH 7.323 L 7.310 L ABG pO2 164.8 H 112.8 H ABG HCO3 19.7 L ABG O2 Saturation ABG Base Excess -5.9 L -4.8 L ABG Hemoglobin 13.6 L 13.0 L Sodium Potassium Chloride Carbon Dioxide BUN Creatinine Glucose POC Glucose 156 H Lactic Acid Calcium Phosphorus Magnesium Ferritin Total Protein Albumin Urine WBC (Auto) 02/10/20 02/10/20 02/10/20 04:01 05:34 11:38 WBC RBC Hgb Hct Seg Neuts % (Manual) Lymphocytes % (Manual) Nucleated RBC % Seg Neutrophils # Man Lymphocytes # (Manual) APTT D-Dimer ABG pH ABG pO2 ABG HCO3 ABG O2 Saturation ABG Base Excess ABG Hemoglobin Sodium 149 H Potassium Chloride 121.2 H Carbon Dioxide 19 L BUN Creatinine Glucose 184 H POC Glucose 214 H 225 H Lactic Acid Calcium 8.1 L Phosphorus Magnesium Ferritin Total Protein Albumin Urine WBC (Auto) 02/10/20 02/10/20 02/10/20 16:43 17:57 19:46 WBC RBC Hgb Hct Seg Neuts % (Manual) Lymphocytes % (Manual) Nucleated RBC % Seg Neutrophils # Man Lymphocytes # (Manual) APTT D-Dimer 8032.84 H ABG pH 7.295 L ABG pO2 136.3 H ABG HCO3 18.9 L ABG O2 Saturation ABG Base Excess -7.1 L ABG Hemoglobin Sodium Potassium Chloride Carbon Dioxide BUN Creatinine Glucose POC Glucose 194 H Lactic Acid Calcium Phosphorus Magnesium Ferritin Total Protein Albumin Urine WBC (Auto) 02/10/20 02/11/20 02/11/20 19:46 00:12 04:09 WBC RBC Hgb Hct Seg Neuts % (Manual) Lymphocytes % (Manual) Nucleated RBC % Seg Neutrophils # Man Lymphocytes # (Manual) APTT D-Dimer ABG pH ABG pO2 ABG HCO3 ABG O2 Saturation ABG Base Excess ABG Hemoglobin Sodium Potassium Chloride 114.7 H Carbon Dioxide 20 L BUN Creatinine Glucose 247 H POC Glucose 255 H Lactic Acid Calcium Phosphorus Magnesium Ferritin 876.5 H Total Protein 5.9 L Albumin 2.9 L Urine WBC (Auto) 02/11/20 02/11/20 02/11/20 05:40 09:45 11:44 WBC RBC Hgb Hct Seg Neuts % (Manual) Lymphocytes % (Manual) Nucleated RBC % Seg Neutrophils # Man Lymphocytes # (Manual) APTT D-Dimer ABG pH 7.326 L ABG pO2 117.1 H ABG HCO3 ABG O2 Saturation ABG Base Excess -4.6 L ABG Hemoglobin 13.8 L Sodium Potassium Chloride Carbon Dioxide BUN Creatinine Glucose POC Glucose 223 H 224 H Lactic Acid Calcium Phosphorus Magnesium Ferritin Total Protein Albumin Urine WBC (Auto) 02/11/20 02/11/20 02/12/20 17:51 21:27 00:24 WBC RBC Hgb Hct Seg Neuts % (Manual) Lymphocytes % (Manual) Nucleated RBC % Seg Neutrophils # Man Lymphocytes # (Manual) APTT D-Dimer ABG pH ABG pO2 ABG HCO3 ABG O2 Saturation ABG Base Excess ABG Hemoglobin Sodium Potassium Chloride Carbon Dioxide BUN Creatinine Glucose POC Glucose 199 H 175 H 172 H Lactic Acid Calcium Phosphorus Magnesium Ferritin Total Protein Albumin Urine WBC (Auto) 02/12/20 05:31 WBC RBC Hgb Hct Seg Neuts % (Manual) Lymphocytes % (Manual) Nucleated RBC % Seg Neutrophils # Man Lymphocytes # (Manual) APTT D-Dimer ABG pH ABG pO2 ABG HCO3 ABG O2 Saturation ABG Base Excess ABG Hemoglobin Sodium Potassium Chloride Carbon Dioxide BUN Creatinine Glucose POC Glucose 155 H Lactic Acid Calcium Phosphorus Magnesium Ferritin Total Protein Albumin Urine WBC (Auto)
[2020-02-12] MEDS ORDERED: hydrALAZINE 20 MG/1 ML INJ IV PRN (15:00)
[2020-02-12] MEDS ORDERED: amLODIPine 5 MG TAB ONE ×2 (15:19→15:59)
[2020-02-12] MEDS: amLODIPine 5 MG TAB PO SCH (15:57)
[2020-02-12] MEDS: BISOPROLOL PO SCH (16:41)
[2020-02-12] MEDS: HCTZ 6.25 MG PO SCH (16:41)
[2020-02-12] MEDS: INSULIN GLARGINE 100 UNITS/ML SUB-Q SCH (22:07)
[2020-02-13] MEDS: INSULIN LISPRO 100 UNIT/ML SUB-Q SCH ×5 (00:21→17:44)
[2020-02-13 05:25] LABS: Hematocrit 39.3 % (35.5-45.6); Hemoglobin 13.3 gm/dl (11.8-15.2); Mean Corpuscular HGB Conc 34 % (32-34); Mean Corpuscular Volume 86 fl (84-94); Platelet Count 175 K/mm3 (140-440); Red Blood Count 4.58 M/mm3 (3.65-5.03)
[2020-02-13 05:35] LABS: BUN/Creatinine Ratio 17; Blood Urea Nitrogen 19 mg/dL (9-20); Calcium 8.8 mg/dL (8.4-10.2); Hemolysis Index 40
[2020-02-13] MEDS ORDERED: POTASSIUM CHLORIDE ER 20 MEQ TAB PO ONE (07:56)
[2020-02-13] MEDS: ENOXAPARIN 100 MG/1 ML INJ SUB-Q SCH ×2 (09:31→22:30)
[2020-02-13] MEDS: FAMOTIDINE 20 MG/2 ML INJ IV SCH ×2 (09:31→22:30)
[2020-02-13] MEDS: amLODIPine 5 MG TAB PO SCH (09:31)
[2020-02-13] MEDS: POTASSIUM CHLORIDE 10 MEQ 10 MEQ/100 ML BAG IV SCH ×2 (09:32→11:00)
--- NOTE | 2020-02-13 11:21 | Progress Note ---
Assessment and Plan Assessment and plan: Patient currently intubated history obtained from ED documentation patient is 74-year-old male with history of hypertension. Patient brought to the emergency room via EMS from home for evaluation of altered mental status and decreased responsiveness. EMS stated that patient stated that last time he was normal was 9 PM when he went to bed. denied any history of seizure. She also denied any history of previous stroke. She also informed EMS that he did not have any fever or chills recently. Stroke protocol immediately initiated and patient moved to CT for stat CT brain. Upon return from the CT patient became more obtunded, patient is unable to maintain his airway. Patient immediately intubated by me using a glide scope with ET tube confirmation by direct visualization, capnometry and good breath sounds on both side. Sepsis protocol also initiated for possible sepsis. * On arrival to the hospital patient was noted to have a blood sugar of over 800. * BG improved, Acute hypoxic respiratory failure Hyperosmotic hyperglycemic nonketotic state versus DKA Sepsis possible acute cystitis Discussed with infectious disease patient not a candidate for COVID low suspicion at this time.-Isolation discontinued Acute metabolic encephalopathy Metabolic acidosis Hypernatremia- Improved Plan Continue supportive care vent management per financial investment manager Patient has been successfully extubated and continues to improve. Patient is tolerating diet at this point. Unable to obtain MRI. No further clinical concern for possible CVA. Await physical therapy evaluation and treat and anticipate discharge in a.m. may need a repeat CT head if totally unable to get the MRI. Per infectious disease patient is not a candidate for COVID testing as low suspicion. Renal function is improving at this point Adjust insulin therapy Continue antibiotics as dictated by ID Isolation discontinued as patient not a candidate for COVID tested due to low suspicion. DVT and GI prophylaxis We will obtain PT OT evaluation and anticipate discharging 24 History Interval history: Patient seen and examined, clinically doing well following extubation. Tolerating diet this morning. Has not been able to ambulate. Hospitalist Physical - Physical exam Narrative exam: VITAL SIGNS: Reviewed. GENERAL: The patient appears normally developed, vital signs as documented. HEAD: No signs of head trauma. EYES: Pupils are equal. EARS: Unable to examine. MOUTH: Oral intact NECK: No adenopathy, no JVD. CHEST: Chest with diminished breath sounds bilaterally. No wheezes, rales, or rhonchi. CARDIAC: Regular rate and rhythm. S1 and S2, without murmurs, gallops, or rubs. VASCULAR: No Edema. Peripheral pulses normal and equal in all extremities. ABDOMEN: Soft, non distended. No rebound or guarding, and no masses palpated. Bowel Sounds normal. MUSCULOSKELETAL: Extremities without clubbing, cyanosis or edema. NEUROLOGIC EXAM: Moves all extremities PSYCHIATRIC: Calm SKIN: detail exam as documented in skin assessment - Constitutional Vitals: Temp Pulse Resp BP Pulse Ox 99.7 F H 87 20 169/83 95 02/13/20 08:29 02/13/20 09:31 02/13/20 08:29 02/13/20 09:31 02/13/20 08:29 Results - Labs CBC & Chem 7: 02/13/20 04:20 02/13/20 04:20 Labs: Laboratory Last Values WBC 12.0 K/mm3 (4.5-11.0) H 02/13/20 04:20 RBC 4.58 M/mm3 (3.65-5.03) 02/13/20 04:20 Hgb 13.3 gm/dl (11.8-15.2) 02/13/20 04:20 Hct 39.3 % (35.5-45.6) 02/13/20 04:20 MCV 86 fl (84-94) 02/13/20 04:20 MCH 29 pg (28-32) 02/13/20 04:20 MCHC 34 % (32-34) 02/13/20 04:20 RDW 14.0 % (13.2-15.2) 02/13/20 04:20 Plt Count 175 K/mm3 (140-440) 02/13/20 04:20 Lymph % (Auto) On Air Personality 02/08/20 09:55 Frontier % (Auto) On Air Personality 02/08/20 09:55 Eos % (Auto) On Air Personality 02/08/20 09:55 Baso % (Auto) On Air Personality 02/08/20 09:55 Lymph # On Air Personality 02/08/20 09:55 Frontier # On Air Personality 02/08/20 09:55 Eos # On Air Personality 02/08/20 09:55 Baso # On Air Personality 02/08/20 09:55 Add Manual Diff Complete 02/08/20 09:55 Total Counted 100 02/08/20 09:55 Seg Neutrophils % On Air Personality 02/08/20 09:55 Seg Neuts % (Manual) 94.0 % (40.0-70.0) H 02/08/20 09:55 Band Neutrophils % 0 % 02/08/20 09:55 Lymphocytes % (Manual) 2.0 % (13.4-35.0) L 02/08/20 09:55 Reactive Lymphs % (Man) 0 % 02/08/20 09:55 Monocytes % (Manual) 4.0 % (0.0-7.3) 02/08/20 09:55 Eosinophils % (Manual) 0 % (0.0-4.3) 02/08/20 09:55 Basophils % (Manual) 0 % (0.0-1.8) 02/08/20 09:55 Metamyelocytes % 0 % 02/08/20 09:55 Myelocytes % 0 % 02/08/20 09:55 Promyelocytes % 0 % 02/08/20 09:55 Blast Cells % 0 % 02/08/20 09:55 Nucleated RBC % 1.0 % (0.0-0.9) H 02/08/20 09:55 Seg Neutrophils # On Air Personality 02/08/20 09:55 Seg Neutrophils # Man 19.7 K/mm3 (1.8-7.7) H 02/08/20 09:55 Band Neutrophils # 0.0 K/mm3 02/08/20 09:55 Lymphocytes # (Manual) 0.4 K/mm3 (1.2-5.4) L 02/08/20 09:55 Abs React Lymphs (Man) 0.0 K/mm3 02/08/20 09:55 Monocytes # (Manual) 0.8 K/mm3 (0.0-0.8) 02/08/20 09:55 Eosinophils # (Manual) 0.0 K/mm3 (0.0-0.4) 02/08/20 09:55 Basophils # (Manual) 0.0 K/mm3 (0.0-0.1) 02/08/20 09:55 Metamyelocytes # 0.0 K/mm3 02/08/20 09:55 Myelocytes # 0.0 K/mm3 02/08/20 09:55 Promyelocytes # 0.0 K/mm3 02/08/20 09:55 Blast Cells # 0.0 K/mm3 02/08/20 09:55 WBC Morphology Not Reportable 02/08/20 09:55 Hypersegmented Neuts Not Reportable 02/08/20 09:55 Hyposegmented Neuts Not Reportable 02/08/20 09:55 Hypogranular Neuts Not Reportable 02/08/20 09:55 Smudge Cells Not Reportable 02/08/20 09:55 Toxic Granulation Not Reportable 02/08/20 09:55 Toxic Vacuolation Not Reportable 02/08/20 09:55 Dohle Bodies Not Reportable 02/08/20 09:55 Pelger-Huet Anomaly Not Reportable 02/08/20 09:55 Tanner Rods Not Reportable 02/08/20 09:55 Platelet Estimate Consistent w auto 02/08/20 09:55 Clumped Platelets Not Reportable 02/08/20 09:55 Plt Clumps, EDTA Not Reportable 02/08/20 09:55 Large Platelets Rare 02/08/20 09:55 Giant Platelets Not Reportable 02/08/20 09:55 Platelet Satelliting Not Reportable 02/08/20 09:55 Plt Morphology Comment Not Reportable 02/08/20 09:55 RBC Morphology Normal 02/08/20 09:55 Dimorphic RBCs Not Reportable 02/08/20 09:55 Polychromasia Not Reportable 02/08/20 09:55 Hypochromasia Not Reportable 02/08/20 09:55 Poikilocytosis Not Reportable 02/08/20 09:55 Anisocytosis Not Reportable 02/08/20 09:55 Microcytosis Not Reportable 02/08/20 09:55 Macrocytosis Not Reportable 02/08/20 09:55 Spherocytes Not Reportable 02/08/20 09:55 Pappenheimer Bodies Not Reportable 02/08/20 09:55 Sickle Cells Not Reportable 02/08/20 09:55 Target Cells Not Reportable 02/08/20 09:55 Tear Drop Cells Not Reportable 02/08/20 09:55 Ovalocytes Not Reportable 02/08/20 09:55 Helmet Cells Not Reportable 02/08/20 09:55 Zav[place] Bodies Not Reportable 02/08/20 09:55 Momence Rings Not Reportable 02/08/20 09:55 Lili Cells Not Reportable 02/08/20 09:55 Bite Cells Not Reportable 02/08/20 09:55 Crenated Cell Not Reportable 02/08/20 09:55 Elliptocytes Not Reportable 02/08/20 09:55 Acanthocytes (Spur) Not Reportable 02/08/20 09:55 Rouleaux Not Reportable 02/08/20 09:55 Hemoglobin C Crystals Not Reportable 02/08/20 09:55 Schistocytes Not Reportable 02/08/20 09:55 Malaria parasites Not Reportable 02/08/20 09:55 Clement Bodies Not Reportable 02/08/20 09:55 Hem Pathologist Commnt No 02/08/20 09:55 PT 13.5 Sec. (12.2-14.9) 02/08/20 09:55 INR 1.02 (0.87-1.13) 02/08/20 09:55 APTT 23.2 Sec. (24.2-36.6) L 02/08/20 09:55 Thrombin Time 18.6 Sec. (15.1-19.6) 02/08/20 09:55 D-Dimer 8032.84 ng/mlDDU (0-234) H 02/10/20 19:46 ABG pH 7.326 pH Units (7.350-7.450) L 02/11/20 09:45 ABG pCO2 41.3 mm Hg 02/11/20 09:45 ABG pO2 117.1 mm Hg (80.0-90.0) H 02/11/20 09:45 ABG HCO3 21.1 mmol/L (20.0-26.0) 02/11/20 09:45 ABG O2 Saturation 98.0 % (95.0-99.0) 02/11/20 09:45 ABG O2 Content 18.8 (0.0-44) 02/11/20 09:45 ABG Base Excess -4.6 mmol/L (-2.0-3.0) L 02/11/20 09:45 ABG Hemoglobin 13.8 gm/dl (14.0-18.0) L 02/11/20 09:45 ABG Carboxyhemoglobin 1.3 % (0.0-5.0) 02/11/20 09:45 ABG Methemoglobin 0.7 % (0.0-1.5) 02/11/20 09:45 Oxyhemoglobin 96.1 % (95.0-99.0) 02/11/20 09:45 FiO2 30 % 02/11/20 09:45 Sodium 146 mmol/L (137-145) H 02/13/20 04:20 Potassium 3.0 mmol/L (3.6-5.0) L D 02/13/20 04:20 Chloride 113.1 mmol/L (98-107) H 02/13/20 04:20 Carbon Dioxide 20 mmol/L (22-30) L 02/13/20 04:20 Anion Gap 16 mmol/L 02/13/20 04:20 BUN 19 mg/dL (9-20) 02/13/20 04:20 Creatinine 1.1 mg/dL (0.8-1.5) 02/13/20 04:20 Estimated GFR > 60 ml/min 02/13/20 04:20 BUN/Creatinine Ratio 17 % 02/13/20 04:20 Glucose 77 mg/dL (75-100) 02/13/20 04:20 POC Glucose 123 (70-105) H 02/13/20 08:45 Lactic Acid 1.60 mmol/L (0.7-2.0) 02/08/20 13:55 Calcium 8.8 mg/dL (8.4-10.2) 02/13/20 04:20 Phosphorus 2.20 mg/dL (2.5-4.5) L D 02/08/20 18:10 Magnesium 2.40 mg/dL (1.7-2.3) H 02/08/20 18:10 Ferritin 876.5 ng/mL (13.0-400.0) H 02/10/20 19:46 Total Bilirubin 0.50 mg/dL (0.1-1.2) 02/11/20 04:09 Direct Bilirubin < 0.2 mg/dL (0-0.2) 02/08/20 09:55 Indirect Bilirubin 0.1 mg/dL 02/08/20 09:55 AST 23 units/L (5-40) 02/11/20 04:09 ALT 16 units/L (7-56) 02/11/20 04:09 Alkaline Phosphatase 76 units/L (35-129) 02/11/20 04:09 Lactate Dehydrogenase 140 units/L (91-180) 02/08/20 09:55 Total Creatine Kinase 69 units/L (55-170) 02/08/20 09:55 CK-MB (CK-2) 1.2 ng/mL (0.0-4.0) 02/08/20 09:55 CK-MB (CK-2) Rel Index 1.7 (0-4) 02/08/20 09:55 Troponin T < 0.010 ng/mL (0.00-0.029) 02/08/20 09:55 Troponin T < 0.010 ng/mL (0.00-0.029) 02/08/20 09:55 C-Reactive Protein 0.30 mg/dL (0.00-1.30) 02/08/20 09:55 Total Protein 5.9 g/dL (6.3-8.2) L 02/11/20 04:09 Albumin 2.9 g/dL (3.9-5) L 02/11/20 04:09 Albumin/Globulin Ratio 1.0 % 02/11/20 04:09 Procalcitonin 0.52 ng/mL (<0.15) 02/10/20 19:46 Urine Color Yellow (Yellow) 02/08/20 11:36 Urine Turbidity Slightly-cloudy (Clear) 02/08/20 11:36 Urine pH 5.0 (5.0-7.0) 02/08/20 11:36 Ur Specific [place] 1.024 (1.003-1.030) 02/08/20 11:36 Urine Protein <15 mg/dl mg/dL (Negative) 02/08/20 11:36 Urine Glucose (UA) >=500 mg/dL (Negative) 02/08/20 11:36 Urine Ketones Tr mg/dL (Negative) 02/08/20 11:36 Urine Blood Mod (Negative) 02/08/20 11:36 Urine Nitrite Pos (Negative) 02/08/20 11:36 Urine Bilirubin Neg (Negative) 02/08/20 11:36 Urine Urobilinogen < 2.0 mg/dL (<2.0) 02/08/20 11:36 Ur Leukocyte Esterase Sm (Negative) 02/08/20 11:36 Urine WBC (Auto) 65.0 /HPF (0.0-6.0) H 02/08/20 11:36 Urine RBC (Auto) 15.0 /HPF (0.0-6.0) 02/08/20 11:36 Urine Bacteria (Auto) 1+ /HPF (Negative) 02/08/20 11:36 Urine Yeast (Budding) 2+ /HPF 02/08/20 11:36 Urine Opiates Screen Presumptive negative 02/08/20 11:36 Urine Methadone Screen Presumptive negative 02/08/20 11:36 Ur Barbiturates Screen Presumptive negative 02/08/20 11:36 Ur Phencyclidine Scrn Presumptive negative 02/08/20 11:36 Ur Amphetamines Screen Presumptive negative 02/08/20 11:36 U Benzodiazepines Scrn Presumptive negative 02/08/20 11:36 Urine Cocaine Screen Presumptive negative 02/08/20 11:36 U Marijuana (THC) Screen Presumptive negative 02/08/20 11:36 Drugs of Abuse Note Disclamer 02/08/20 11:36 Plasma/Serum Alcohol < 0.01 % (0-0.07) 02/08/20 09:55 Microbiology: Microbiology 02/08/20 Unknown Peripheral/Venous Blood Culture - Final NO GROWTH AFTER 5 DAYS 02/08/20 Unknown Peripheral/Venous Blood Culture - Final NO GROWTH AFTER 5 DAYS Torres/IV: Voiding Method Nephrostomy (Right) IV Catheter Type [Left Forearm Peripheral IV ] IV Catheter Type [Right INT / Saline Lock Antecubital] IV Catheter Type [Right Hand] Peripheral IV Active Medications - Current Medications Current Medications: Generic Name Dose Route Start Last Admin Trade Name Freq PRN Reason Stop Dose Admin Amlodipine Besylate 5 mg 02/12/20 15:00 02/13/20 09:31 Amlodipine PO 5 mg QDAY UBALDO Administration Lipase/Protease/Amylase 1 each 02/08/20 16:27 Pancreaze 10,500 Unit FEEDTUBE PRN PRN For Clogged Feeding Tube Bisoprolol Fumarate 1 each 02/12/20 15:30 02/12/20 16:41 Ziac 2.5-6.25 PO 1 each QDAY UBALDO Administration Dextrose 50 ml 02/09/20 08:30 D50w (25gm) Syringe IV Q30MIN PRN Hypoglycemia Protocol Enoxaparin Sodium 90 mg 02/11/20 10:00 02/13/20 09:31 Enoxaparin SUB-Q 90 mg Q12HR UBALDO Administration Famotidine 20 mg 02/09/20 10:00 02/13/20 09:31 Pepcid IV 20 mg BID UBALDO Administration Hydralazine HCl 10 mg 02/12/20 15:00 Apresoline IV Q4H PRN Hypertension Hydromorphone HCl 0.5 mg 02/08/20 16:27 Dilaudid IV Q3H PRN Pain , Severe (7-10) Hydrophilic Ointment 1 applic 02/08/20 11:37 Vaseline Lip Therapy TP Q2HR PRN Dry Lips Insulin Glargine 16 units 02/09/20 22:00 02/12/20 22:07 Lantus SUB-Q 16 units QHS UBALDO Administration Insulin Human Lispro 0 unit 02/09/20 12:00 02/13/20 06:00 Humalog SUB-Q Not Given Q6HR [facility] Protocol Morphine Sulfate 2 mg 02/08/20 16:27 Morphine IV Q4H PRN Pain, Moderate (4-6) Multi-Ingred Cream/Lotion/Oil/Oint 1 applic 02/08/20 11:37 Artificial Tears Ophth Oint OU Q4HR PRN Dry Eye(s) Simple Syrup 15 ml 02/08/20 16:27 Simple Syrup FEEDTUBE PRN PRN Hypoglycemia Simple Syrup 30 ml 02/08/20 16:27 Simple Syrup FEEDTUBE PRN PRN Hypoglycemia Sodium Bicarbonate 325 mg 02/08/20 16:27 Sodium Bicarbonate FEEDTUBE PRN PRN For Clogged Feeding Tube Sodium Chloride 10 ml 02/08/20 22:00 02/13/20 09:33 Sodium Chloride Flush Syringe 10 Ml IV 10 ml BID UBALDO Administration Sodium Chloride 10 ml 02/08/20 16:27 Sodium Chloride Flush Syringe 10 Ml IV PRN PRN LINE FLUSH Nutrition/Malnutrition Assess - Dietary Evaluation Nutrition/Malnutrition Findings: Nutrition Notes Start: 02/09/20 07:55 Freq: Status: Active Protocol: Document 02/11/20 12:19 LM (Rec: 02/11/20 12:29 LM [id number]) Nutrition Notes Initial or Follow up Brief Note Current Diagnosis Diabetes,Sepsis,Hypertension Other Pertinent Diagnosis AMS, DKA Current Diet Vital AF 1.2 at 65ml/hr Labs/Tests BG 247 Pertinent Medications BG 247 D5W at 75ml/hr Humalog Propofol at 2.625ml/hr (69kcal ) Height 5 ft 10 in Weight 87.5 kg [place] Body Weight (kg) 75.45 BMI 27.6 Weight Status Overweight Subjective/Other Information Per RN, TF on hold due to pt not having KUB. plans to extubate pt. Pt also not being tested for COVID-19. Nutrition Intervention Follow-Up By: 02/15/20 Additional Comments F/U for vent status/diet advancement
--- NOTE | 2020-02-13 14:58 | Progress Note ---
Assessment and Plan Acute hypoxemic respiratory failure on MVS Acute encephalopathy, toxic metabolic. Diabetic ketoacidosis, probably responsible for the acidosis. Systemic inflammatory response syndrome. Leukocytosis. Acute kidney injury. Severe metabolic acidosis. Mild hyperkalemia. Lactic acidosis. Oropharyngeal dysphagia. Urinary tract infection. HTN. - supplemental oxygen as needed for target O2 sat's > 90% acutely - prn bronchodilators with pulmonary hygiene per RT - wean per pulmonary driven protocols otherwise - continue accuchecks with glycemic control per SSI for target blood glucose of <180 mg/dL (avoid hypoglycemia) - avoid benzodiazepine's, reduce the possibility of delirium - prn analgesia per pain score - Maintenance of sleep-wake cycle, avoid delirium - continue aspiration precautions - G.I. & VTE prophylaxis - PT/OT/ROM exercises - continue mobility protocols for pressure ulcer prophylaxis - Monitor hemodynamics closely - continue other care per attending / other consultants - discharge planning ongoing concurrently .... Re-evaluate in am & prn CONDITION: FAIR PROGNOSIS: GUARDED CODE STATUS: FULL CODE Subjective Date of service: 02/13/20 Principal diagnosis: Acute hypoxemic resp failure; Ac. encephalopathy; DKA; SIRS; SOURAV Interval history: Patient is seen today for: Acute hypoxemic respiratory failure; Acute encephalopathy; DKA; SIRS; SOURAV Seen and examined at bedside; 24hour events reviewed; nursing and respiratory care staff consulted; no adverse overnight events reported to me; remains on MVS; Objective Vital Signs - 12hr 02/13/20 02/13/20 02/13/20 03:29 04:17 08:29 Temperature 97.8 F 99.7 F H Pulse Rate 82 82 87 Respiratory 18 20 Rate Blood Pressure 147/74 169/83 O2 Sat by Pulse 96 95 Oximetry 02/13/20 02/13/20 09:31 12:02 Temperature Pulse Rate 87 Respiratory Rate Blood Pressure 169/83 O2 Sat by Pulse 94 Oximetry Constitutional: no acute distress, other (elderly looking CM, normocephalic with mildly increased resp effort on MVS) Eyes: non-icteric ENT: oropharynx moist, other (extubated) Neck: supple, no lymphadenopathy, no JVD Effort: mildly labored Ascultation: Bilateral: diminished breath sounds, rhonchi Percussion: Bilateral: not dull Cardiovascular: regular rate and rhythm Gastrointestinal: normoactive bowel sounds, soft, non-tender, non-distended Integumentary: normal Extremities: no cyanosis, no edema, pink and warm, pulses normal Neurologic: non-focal exam (grossly), pupils equal and round, CN II-XII normal Psychiatric: other (unable to assess re: AMS) CBC and BMP: 02/13/20 04:20 02/13/20 04:20 ABG, PT/INR, D-dimer: ABG ABG pH 7.326 pH Units (7.350-7.450) L 02/11/20 09:45 ABG pCO2 41.3 mm Hg 02/11/20 09:45 ABG pO2 117.1 mm Hg (80.0-90.0) H 02/11/20 09:45 ABG O2 Saturation 98.0 % (95.0-99.0) 02/11/20 09:45 PT/INR, D-dimer PT 13.5 Sec. (12.2-14.9) 02/08/20 09:55 INR 1.02 (0.87-1.13) 02/08/20 09:55 D-Dimer 8032.84 ng/mlDDU (0-234) H 02/10/20 19:46 Abnormal lab findings: Abnormal Labs 02/08/20 02/08/20 02/08/20 09:12 09:55 09:55 WBC 21.0 H RBC 5.59 H Hgb 16.0 H Hct 50.0 H Seg Neuts % (Manual) 94.0 H Lymphocytes % (Manual) 2.0 L Nucleated RBC % 1.0 H Seg Neutrophils # Man 19.7 H Lymphocytes # (Manual) 0.4 L APTT 23.2 L D-Dimer 299.15 H ABG pH ABG pO2 ABG HCO3 ABG O2 Saturation ABG Base Excess ABG Hemoglobin Sodium Potassium Chloride Carbon Dioxide BUN Creatinine Glucose POC Glucose > 500 H Lactic Acid Calcium Phosphorus Magnesium Ferritin Total Protein Albumin Urine WBC (Auto) 02/08/20 02/08/20 02/08/20 09:55 09:55 10:30 WBC RBC Hgb Hct Seg Neuts % (Manual) Lymphocytes % (Manual) Nucleated RBC % Seg Neutrophils # Man Lymphocytes # (Manual) APTT D-Dimer ABG pH 7.275 L ABG pO2 365.1 H ABG HCO3 17.4 L ABG O2 Saturation 99.5 H ABG Base Excess -8.7 L ABG Hemoglobin Sodium 128 L Potassium 5.1 H Chloride 91.4 L Carbon Dioxide 10 L BUN 38 H Creatinine 2.7 H Glucose 803 H* POC Glucose Lactic Acid Calcium Phosphorus Magnesium Ferritin 861.7 H Total Protein 5.9 L Albumin 3.5 L Urine WBC (Auto) 02/08/20 02/08/20 02/08/20 10:45 11:36 11:40 WBC RBC Hgb Hct Seg Neuts % (Manual) Lymphocytes % (Manual) Nucleated RBC % Seg Neutrophils # Man Lymphocytes # (Manual) APTT D-Dimer ABG pH ABG pO2 ABG HCO3 ABG O2 Saturation ABG Base Excess ABG Hemoglobin Sodium Potassium Chloride Carbon Dioxide BUN Creatinine Glucose POC Glucose Lactic Acid 6.10 H* Calcium Phosphorus Magnesium 2.70 H Ferritin Total Protein Albumin Urine WBC (Auto) 65.0 H 02/08/20 02/08/20 02/08/20 11:40 13:21 13:55 WBC RBC Hgb Hct Seg Neuts % (Manual) Lymphocytes % (Manual) Nucleated RBC % Seg Neutrophils # Man Lymphocytes # (Manual) APTT D-Dimer ABG pH ABG pO2 ABG HCO3 ABG O2 Saturation ABG Base Excess ABG Hemoglobin Sodium 130 L 135 L Potassium 5.1 H Chloride 91.5 L Carbon Dioxide 14 L 11 L BUN 38 H 34 H Creatinine 2.3 H 2.1 H Glucose 727 H* 473 H POC Glucose > 500 H Lactic Acid Calcium 8.3 L Phosphorus Magnesium Ferritin Total Protein Albumin Urine WBC (Auto) 02/08/20 02/08/20 02/08/20 14:36 15:15 15:48 WBC RBC Hgb Hct Seg Neuts % (Manual) Lymphocytes % (Manual) Nucleated RBC % Seg Neutrophils # Man Lymphocytes # (Manual) APTT D-Dimer ABG pH ABG pO2 ABG HCO3 ABG O2 Saturation ABG Base Excess ABG Hemoglobin Sodium Potassium Chloride 108.8 H Carbon Dioxide 15 L BUN 34 H Creatinine 2.0 H Glucose 293 H POC Glucose 342 H 305 H Lactic Acid Calcium 8.1 L Phosphorus Magnesium Ferritin Total Protein Albumin Urine WBC (Auto) 02/08/20 02/08/20 02/08/20 17:00 18:10 18:10 WBC RBC Hgb Hct Seg Neuts % (Manual) Lymphocytes % (Manual) Nucleated RBC % Seg Neutrophils # Man Lymphocytes # (Manual) APTT D-Dimer ABG pH ABG pO2 ABG HCO3 ABG O2 Saturation ABG Base Excess ABG Hemoglobin Sodium Potassium Chloride 107.4 H Carbon Dioxide 16 L BUN 31 H Creatinine 2.1 H Glucose 216 H POC Glucose 249 H Lactic Acid Calcium Phosphorus 2.20 L D Magnesium 2.40 H Ferritin Total Protein Albumin Urine WBC (Auto) 02/08/20 02/08/20 02/08/20 18:39 19:52 21:34 WBC RBC Hgb Hct Seg Neuts % (Manual) Lymphocytes % (Manual) Nucleated RBC % Seg Neutrophils # Man Lymphocytes # (Manual) APTT D-Dimer ABG pH ABG pO2 ABG HCO3 ABG O2 Saturation ABG Base Excess ABG Hemoglobin Sodium Potassium Chloride Carbon Dioxide BUN Creatinine Glucose POC Glucose 204 H 239 H 209 H Lactic Acid Calcium Phosphorus Magnesium Ferritin Total Protein Albumin Urine WBC (Auto) 02/08/20 02/09/20 02/09/20 23:25 00:35 00:48 WBC RBC Hgb Hct Seg Neuts % (Manual) Lymphocytes % (Manual) Nucleated RBC % Seg Neutrophils # Man Lymphocytes # (Manual) APTT D-Dimer ABG pH ABG pO2 ABG HCO3 ABG O2 Saturation ABG Base Excess ABG Hemoglobin Sodium Potassium Chloride 114.9 H Carbon Dioxide 15 L BUN 28 H Creatinine Glucose 160 H POC Glucose 187 H 160 H Lactic Acid Calcium 8.0 L Phosphorus Magnesium Ferritin Total Protein Albumin Urine WBC (Auto) 02/09/20 02/09/20 02/09/20 01:40 03:04 04:14 WBC RBC Hgb Hct Seg Neuts % (Manual) Lymphocytes % (Manual) Nucleated RBC % Seg Neutrophils # Man Lymphocytes # (Manual) APTT D-Dimer ABG pH ABG pO2 ABG HCO3 ABG O2 Saturation ABG Base Excess ABG Hemoglobin Sodium Potassium Chloride Carbon Dioxide BUN Creatinine Glucose POC Glucose 181 H 136 H 114 H Lactic Acid Calcium Phosphorus Magnesium Ferritin Total Protein Albumin Urine WBC (Auto) 02/09/20 02/09/20 02/09/20 04:18 05:27 06:38 WBC RBC Hgb Hct Seg Neuts % (Manual) Lymphocytes % (Manual) Nucleated RBC % Seg Neutrophils # Man Lymphocytes # (Manual) APTT D-Dimer ABG pH ABG pO2 ABG HCO3 ABG O2 Saturation ABG Base Excess ABG Hemoglobin Sodium Potassium 3.5 L Chloride 117.0 H Carbon Dioxide 19 L BUN 27 H Creatinine Glucose 113 H POC Glucose 151 H 127 H Lactic Acid Calcium 8.2 L Phosphorus Magnesium Ferritin Total Protein Albumin Urine WBC (Auto) 02/09/20 02/09/20 02/09/20 08:14 08:45 12:34 WBC RBC Hgb Hct Seg Neuts % (Manual) Lymphocytes % (Manual) Nucleated RBC % Seg Neutrophils # Man Lymphocytes # (Manual) APTT D-Dimer ABG pH ABG pO2 ABG HCO3 ABG O2 Saturation ABG Base Excess ABG Hemoglobin Sodium Potassium Chloride 114.3 H Carbon Dioxide 16 L BUN 22 H Creatinine Glucose 225 H POC Glucose 140 H 255 H Lactic Acid Calcium 8.1 L Phosphorus Magnesium Ferritin Total Protein Albumin Urine WBC (Auto) 02/09/20 02/09/20 02/09/20 15:49 16:35 17:25 WBC RBC Hgb Hct Seg Neuts % (Manual) Lymphocytes % (Manual) Nucleated RBC % Seg Neutrophils # Man Lymphocytes # (Manual) APTT D-Dimer ABG pH 7.340 L ABG pO2 123.9 H ABG HCO3 19.9 L ABG O2 Saturation ABG Base Excess -5.1 L ABG Hemoglobin Sodium 146 H Potassium Chloride 117.1 H Carbon Dioxide 19 L BUN Creatinine Glucose 242 H POC Glucose 192 H Lactic Acid Calcium 8.2 L Phosphorus Magnesium Ferritin Total Protein Albumin Urine WBC (Auto) 02/09/20 02/10/20 02/10/20 Unknown 00:11 03:46 WBC RBC Hgb Hct Seg Neuts % (Manual) Lymphocytes % (Manual) Nucleated RBC % Seg Neutrophils # Man Lymphocytes # (Manual) APTT D-Dimer ABG pH 7.323 L 7.310 L ABG pO2 164.8 H 112.8 H ABG HCO3 19.7 L ABG O2 Saturation ABG Base Excess -5.9 L -4.8 L ABG Hemoglobin 13.6 L 13.0 L Sodium Potassium Chloride Carbon Dioxide BUN Creatinine Glucose POC Glucose 156 H Lactic Acid Calcium Phosphorus Magnesium Ferritin Total Protein Albumin Urine WBC (Auto) 02/10/20 02/10/20 02/10/20 04:01 05:34 11:38 WBC RBC Hgb Hct Seg Neuts % (Manual) Lymphocytes % (Manual) Nucleated RBC % Seg Neutrophils # Man Lymphocytes # (Manual) APTT D-Dimer ABG pH ABG pO2 ABG HCO3 ABG O2 Saturation ABG Base Excess ABG Hemoglobin Sodium 149 H Potassium Chloride 121.2 H Carbon Dioxide 19 L BUN Creatinine Glucose 184 H POC Glucose 214 H 225 H Lactic Acid Calcium 8.1 L Phosphorus Magnesium Ferritin Total Protein Albumin Urine WBC (Auto) 02/10/20 02/10/20 02/10/20 16:43 17:57 19:46 WBC RBC Hgb Hct Seg Neuts % (Manual) Lymphocytes % (Manual) Nucleated RBC % Seg Neutrophils # Man Lymphocytes # (Manual) APTT D-Dimer 8032.84 H ABG pH 7.295 L ABG pO2 136.3 H ABG HCO3 18.9 L ABG O2 Saturation ABG Base Excess -7.1 L ABG Hemoglobin Sodium Potassium Chloride Carbon Dioxide BUN Creatinine Glucose POC Glucose 194 H Lactic Acid Calcium Phosphorus Magnesium Ferritin Total Protein Albumin Urine WBC (Auto) 02/10/20 02/11/20 02/11/20 19:46 00:12 04:09 WBC RBC Hgb Hct Seg Neuts % (Manual) Lymphocytes % (Manual) Nucleated RBC % Seg Neutrophils # Man Lymphocytes # (Manual) APTT D-Dimer ABG pH ABG pO2 ABG HCO3 ABG O2 Saturation ABG Base Excess ABG Hemoglobin Sodium Potassium Chloride 114.7 H Carbon Dioxide 20 L BUN Creatinine Glucose 247 H POC Glucose 255 H Lactic Acid Calcium Phosphorus Magnesium Ferritin 876.5 H Total Protein 5.9 L Albumin 2.9 L Urine WBC (Auto) 02/11/20 02/11/20 02/11/20 05:40 09:45 11:44 WBC RBC Hgb Hct Seg Neuts % (Manual) Lymphocytes % (Manual) Nucleated RBC % Seg Neutrophils # Man Lymphocytes # (Manual) APTT D-Dimer ABG pH 7.326 L ABG pO2 117.1 H ABG HCO3 ABG O2 Saturation ABG Base Excess -4.6 L ABG Hemoglobin 13.8 L Sodium Potassium Chloride Carbon Dioxide BUN Creatinine Glucose POC Glucose 223 H 224 H Lactic Acid Calcium Phosphorus Magnesium Ferritin Total Protein Albumin Urine WBC (Auto) 02/11/20 02/11/20 02/12/20 17:51 21:27 00:24 WBC RBC Hgb Hct Seg Neuts % (Manual) Lymphocytes % (Manual) Nucleated RBC % Seg Neutrophils # Man Lymphocytes # (Manual) APTT D-Dimer ABG pH ABG pO2 ABG HCO3 ABG O2 Saturation ABG Base Excess ABG Hemoglobin Sodium Potassium Chloride Carbon Dioxide BUN Creatinine Glucose POC Glucose 199 H 175 H 172 H Lactic Acid Calcium Phosphorus Magnesium Ferritin Total Protein Albumin Urine WBC (Auto) 02/12/20 02/12/20 02/12/20 05:31 12:29 17:07 WBC RBC Hgb Hct Seg Neuts % (Manual) Lymphocytes % (Manual) Nucleated RBC % Seg Neutrophils # Man Lymphocytes # (Manual) APTT D-Dimer ABG pH ABG pO2 ABG HCO3 ABG O2 Saturation ABG Base Excess ABG Hemoglobin Sodium Potassium Chloride Carbon Dioxide BUN Creatinine Glucose POC Glucose 155 H 178 H 196 H Lactic Acid Calcium Phosphorus Magnesium Ferritin Total Protein Albumin Urine WBC (Auto) 02/12/20 02/13/20 02/13/20 22:18 04:20 04:20 WBC 12.0 H RBC Hgb Hct Seg Neuts % (Manual) Lymphocytes % (Manual) Nucleated RBC % Seg Neutrophils # Man Lymphocytes # (Manual) APTT D-Dimer ABG pH ABG pO2 ABG HCO3 ABG O2 Saturation ABG Base Excess ABG Hemoglobin Sodium 146 H Potassium 3.0 L D Chloride 113.1 H Carbon Dioxide 20 L BUN Creatinine Glucose POC Glucose 341 H Lactic Acid Calcium Phosphorus Magnesium Ferritin Total Protein Albumin Urine WBC (Auto) 02/13/20 02/13/20 02/13/20 05:48 08:45 12:06 WBC RBC Hgb Hct Seg Neuts % (Manual) Lymphocytes % (Manual) Nucleated RBC % Seg Neutrophils # Man Lymphocytes # (Manual) APTT D-Dimer ABG pH ABG pO2 ABG HCO3 ABG O2 Saturation ABG Base Excess ABG Hemoglobin Sodium Potassium Chloride Carbon Dioxide BUN Creatinine Glucose POC Glucose 109 H 123 H 325 H Lactic Acid Calcium Phosphorus Magnesium Ferritin Total Protein Albumin Urine WBC (Auto) Allied health notes reviewed: nursing
[2020-02-13] MEDS: BISOPROLOL PO SCH (16:48)
[2020-02-13] MEDS: HCTZ 6.25 MG PO SCH (16:48)
[2020-02-13] MEDS: INSULIN GLARGINE 100 UNITS/ML SUB-Q SCH (23:14)
[2020-02-14 04:14] LABS: Hematocrit 41.7 % (35.5-45.6); Hemoglobin 14.3 gm/dl (11.8-15.2); Mean Corpuscular HGB Conc 34 % (32-34); Mean Corpuscular Volume 85 fl (84-94); Platelet Count 182 K/mm3 (140-440); Red Blood Count 4.92 M/mm3 (3.65-5.03); Red Cell Distribution Width 13.7 % (13.2-15.2)
[2020-02-14 04:31] LABS: BUN/Creatinine Ratio 15; Blood Urea Nitrogen 16 mg/dL (9-20); Calcium 8.9 mg/dL (8.4-10.2); Hemolysis Index 4
[2020-02-14] MEDS: INSULIN LISPRO 100 UNIT/ML SUB-Q SCH ×5 (06:50→23:16)
[2020-02-14] MEDS: ENOXAPARIN 100 MG/1 ML INJ SUB-Q SCH ×2 (09:45→21:48)
[2020-02-14] MEDS: amLODIPine 5 MG TAB PO SCH (09:45)
[2020-02-14] MEDS: FAMOTIDINE 20 MG/2 ML INJ IV SCH ×2 (09:46→21:49)
[2020-02-14] MEDS: BISOPROLOL PO SCH (09:46)
[2020-02-14] MEDS: HCTZ 6.25 MG PO SCH (09:46)
--- NOTE | 2020-02-14 12:45 | Progress Note ---
Assessment and Plan Assessment and plan: Patient currently intubated history obtained from ED documentation patient is 74-year-old male with history of hypertension. Patient brought to the emergency room via EMS from home for evaluation of altered mental status and decreased responsiveness. EMS stated that patient stated that last time he was normal was 9 PM when he went to bed. denied any history of seizure. She also denied any history of previous stroke. She also informed EMS that he did not have any fever or chills recently. Stroke protocol immediately initiated and patient moved to CT for stat CT brain. Upon return from the CT patient became more obtunded, patient is unable to maintain his airway. Patient immediately intubated by me using a glide scope with ET tube confirmation by direct visualization, capnometry and good breath sounds on both side. Sepsis protocol also initiated for possible sepsis. * On arrival to the hospital patient was noted to have a blood sugar of over 800. * BG improved, Acute hypoxic respiratory failure Hyperosmotic hyperglycemic nonketotic state versus DKA Sepsis possible acute cystitis Discussed with infectious disease patient not a candidate for COVID low suspicion at this time.-Isolation discontinued Acute metabolic encephalopathy Metabolic acidosis Hypernatremia- Improved Plan Continue supportive care vent management per loan assistant Patient has been successfully extubated and continues to improve. Patient is tolerating diet at this point. Unable to obtain MRI. No further clinical concern for possible CVA. We will plan for discharge in a.m. once I have full recommendation from PT OT Per infectious disease patient is not a candidate for COVID testing as low curtis spicion. Renal function is improving at this point Adjust insulin therapy Continue antibiotics as dictated by ID Isolation discontinued as patient not a candidate for COVID tested due to low suspicion. DVT and GI prophylaxis We will obtain PT OT evaluation and anticipate discharging 24 History Interval history: Patient seen and examined, continues to improve. Awaiting physical therapy recommendation for discharge. Hospitalist Physical - Physical exam Narrative exam: VITAL SIGNS: Reviewed. GENERAL: The patient appears normally developed, vital signs as documented. HEAD: No signs of head trauma. EYES: Pupils are equal. EARS: Unable to examine. MOUTH: Oral intact NECK: No adenopathy, no JVD. CHEST: Chest with diminished breath sounds bilaterally. No wheezes, rales, or rhonchi. CARDIAC: Regular rate and rhythm. S1 and S2, without murmurs, gallops, or rubs. VASCULAR: No Edema. Peripheral pulses normal and equal in all extremities. ABDOMEN: Soft, non distended. No rebound or guarding, and no masses palpated. Bowel Sounds normal. MUSCULOSKELETAL: Extremities without clubbing, cyanosis or edema. NEUROLOGIC EXAM: Moves all extremities PSYCHIATRIC: Calm SKIN: detail exam as documented in skin assessment - Constitutional Vitals: Temp Pulse Resp BP Pulse Ox 98.4 F 77 18 148/89 96 02/14/20 08:27 02/14/20 08:27 02/14/20 08:27 02/14/20 08:27 02/14/20 08:27 Results - Labs CBC & Chem 7: 02/14/20 03:43 02/14/20 03:43 Labs: Laboratory Last Values WBC 8.3 K/mm3 (4.5-11.0) 02/14/20 03:43 RBC 4.92 M/mm3 (3.65-5.03) 02/14/20 03:43 Hgb 14.3 gm/dl (11.8-15.2) 02/14/20 03:43 Hct 41.7 % (35.5-45.6) 02/14/20 03:43 MCV 85 fl (84-94) 02/14/20 03:43 MCH 29 pg (28-32) 02/14/20 03:43 MCHC 34 % (32-34) 02/14/20 03:43 RDW 13.7 % (13.2-15.2) 02/14/20 03:43 Plt Count 182 K/mm3 (140-440) 02/14/20 03:43 Lymph % (Auto) [place] 02/08/20 09:55 [place] % (Auto) Hair Weaver 02/08/20 09:55 Eos % (Auto) [place] 02/08/20 09:55 Baso % (Auto) [place] 02/08/20 09:55 Lymph # [place] 02/08/20 09:55 [place] # Hair Weaver 02/08/20 09:55 Eos # [place] 02/08/20 09:55 Baso # [place] 02/08/20 09:55 Add Manual Diff Complete 02/08/20 09:55 Total Counted 100 02/08/20 09:55 Seg Neutrophils % [place] 02/08/20 09:55 Seg Neuts % (Manual) 94.0 % (40.0-70.0) H 02/08/20 09:55 Band Neutrophils % 0 % 02/08/20 09:55 Lymphocytes % (Manual) 2.0 % (13.4-35.0) L 02/08/20 09:55 Reactive Lymphs % (Man) 0 % 02/08/20 09:55 Monocytes % (Manual) 4.0 % (0.0-7.3) 02/08/20 09:55 Eosinophils % (Manual) 0 % (0.0-4.3) 02/08/20 09:55 Basophils % (Manual) 0 % (0.0-1.8) 02/08/20 09:55 Metamyelocytes % 0 % 02/08/20 09:55 Myelocytes % 0 % 02/08/20 09:55 Promyelocytes % 0 % 02/08/20 09:55 Blast Cells % 0 % 02/08/20 09:55 Nucleated RBC % 1.0 % (0.0-0.9) H 02/08/20 09:55 Seg Neutrophils # [place] 02/08/20 09:55 Seg Neutrophils # Man 19.7 K/mm3 (1.8-7.7) H 02/08/20 09:55 Band Neutrophils # 0.0 K/mm3 02/08/20 09:55 Lymphocytes # (Manual) 0.4 K/mm3 (1.2-5.4) L 02/08/20 09:55 Abs React Lymphs (Man) 0.0 K/mm3 02/08/20 09:55 Monocytes # (Manual) 0.8 K/mm3 (0.0-0.8) 02/08/20 09:55 Eosinophils # (Manual) 0.0 K/mm3 (0.0-0.4) 02/08/20 09:55 Basophils # (Manual) 0.0 K/mm3 (0.0-0.1) 02/08/20 09:55 Metamyelocytes # 0.0 K/mm3 02/08/20 09:55 Myelocytes # 0.0 K/mm3 02/08/20 09:55 Promyelocytes # 0.0 K/mm3 02/08/20 09:55 Blast Cells # 0.0 K/mm3 02/08/20 09:55 WBC Morphology Not Reportable 02/08/20 09:55 Hypersegmented Neuts Not Reportable 02/08/20 09:55 Hyposegmented Neuts Not Reportable 02/08/20 09:55 Hypogranular Neuts Not Reportable 02/08/20 09:55 Smudge Cells Not Reportable 02/08/20 09:55 Toxic Granulation Not Reportable 02/08/20 09:55 Toxic Vacuolation Not Reportable 02/08/20 09:55 Dohle Bodies Not Reportable 02/08/20 09:55 Pelger-Huet Anomaly Not Reportable 02/08/20 09:55 Tanner Rods Not Reportable 02/08/20 09:55 Platelet Estimate Consistent w auto 02/08/20 09:55 Clumped Platelets Not Reportable 02/08/20 09:55 Plt Clumps, EDTA Not Reportable 02/08/20 09:55 Large Platelets Rare 02/08/20 09:55 Giant Platelets Not Reportable 02/08/20 09:55 Platelet Satelliting Not Reportable 02/08/20 09:55 Plt Morphology Comment Not Reportable 02/08/20 09:55 RBC Morphology Normal 02/08/20 09:55 Dimorphic RBCs Not Reportable 02/08/20 09:55 Polychromasia Not Reportable 02/08/20 09:55 Hypochromasia Not Reportable 02/08/20 09:55 Poikilocytosis Not Reportable 02/08/20 09:55 Anisocytosis Not Reportable 02/08/20 09:55 Microcytosis Not Reportable 02/08/20 09:55 Macrocytosis Not Reportable 02/08/20 09:55 Spherocytes Not Reportable 02/08/20 09:55 Pappenheimer Bodies Not Reportable 02/08/20 09:55 Sickle Cells Not Reportable 02/08/20 09:55 Target Cells Not Reportable 02/08/20 09:55 Tear Drop Cells Not Reportable 02/08/20 09:55 Ovalocytes Not Reportable 02/08/20 09:55 Helmet Cells Not Reportable 02/08/20 09:55 [place] Bodies Not Reportable 02/08/20 09:55 [place] Rings Not Reportable 02/08/20 09:55 Lili Cells Not Reportable 02/08/20 09:55 Bite Cells Not Reportable 02/08/20 09:55 Crenated Cell Not Reportable 02/08/20 09:55 Elliptocytes Not Reportable 02/08/20 09:55 Acanthocytes (Spur) Not Reportable 02/08/20 09:55 Rouleaux Not Reportable 02/08/20 09:55 Hemoglobin C Crystals Not Reportable 02/08/20 09:55 Schistocytes Not Reportable 02/08/20 09:55 Malaria parasites Not Reportable 02/08/20 09:55 Clement Bodies Not Reportable 02/08/20 09:55 Hem Pathologist Commnt No 02/08/20 09:55 PT 13.5 Sec. (12.2-14.9) 02/08/20 09:55 INR 1.02 (0.87-1.13) 02/08/20 09:55 APTT 23.2 Sec. (24.2-36.6) L 02/08/20 09:55 Thrombin Time 18.6 Sec. (15.1-19.6) 02/08/20 09:55 D-Dimer 8032.84 ng/mlDDU (0-234) H 02/10/20 19:46 ABG pH 7.326 pH Units (7.350-7.450) L 02/11/20 09:45 ABG pCO2 41.3 mm Hg 02/11/20 09:45 ABG pO2 117.1 mm Hg (80.0-90.0) H 02/11/20 09:45 ABG HCO3 21.1 mmol/L (20.0-26.0) 02/11/20 09:45 ABG O2 Saturation 98.0 % (95.0-99.0) 02/11/20 09:45 ABG O2 Content 18.8 (0.0-44) 02/11/20 09:45 ABG Base Excess -4.6 mmol/L (-2.0-3.0) L 02/11/20 09:45 ABG Hemoglobin 13.8 gm/dl (14.0-18.0) L 02/11/20 09:45 ABG Carboxyhemoglobin 1.3 % (0.0-5.0) 02/11/20 09:45 ABG Methemoglobin 0.7 % (0.0-1.5) 02/11/20 09:45 Oxyhemoglobin 96.1 % (95.0-99.0) 02/11/20 09:45 FiO2 30 % 02/11/20 09:45 Sodium 140 mmol/L (137-145) 02/14/20 03:43 Potassium 3.0 mmol/L (3.6-5.0) L 02/14/20 03:43 Chloride 105.2 mmol/L (98-107) 02/14/20 03:43 Carbon Dioxide 21 mmol/L (22-30) L 02/14/20 03:43 Anion Gap 17 mmol/L 02/14/20 03:43 BUN 16 mg/dL (9-20) 02/14/20 03:43 Creatinine 1.1 mg/dL (0.8-1.5) 02/14/20 03:43 Estimated GFR > 60 ml/min 02/14/20 03:43 BUN/Creatinine Ratio 15 % 02/14/20 03:43 Glucose 150 mg/dL (75-100) H 02/14/20 03:43 POC Glucose 245 (70-105) H 02/14/20 11:48 Lactic Acid 1.60 mmol/L (0.7-2.0) 02/08/20 13:55 Calcium 8.9 mg/dL (8.4-10.2) 02/14/20 03:43 Phosphorus 2.20 mg/dL (2.5-4.5) L D 02/08/20 18:10 Magnesium 2.40 mg/dL (1.7-2.3) H 02/08/20 18:10 Ferritin 876.5 ng/mL (13.0-400.0) H 02/10/20 19:46 Total Bilirubin 0.50 mg/dL (0.1-1.2) 02/11/20 04:09 Direct Bilirubin < 0.2 mg/dL (0-0.2) 02/08/20 09:55 Indirect Bilirubin 0.1 mg/dL 02/08/20 09:55 AST 23 units/L (5-40) 02/11/20 04:09 ALT 16 units/L (7-56) 02/11/20 04:09 Alkaline Phosphatase 76 units/L (35-129) 02/11/20 04:09 Lactate Dehydrogenase 140 units/L (91-180) 02/08/20 09:55 Total Creatine Kinase 69 units/L (55-170) 02/08/20 09:55 CK-MB (CK-2) 1.2 ng/mL (0.0-4.0) 02/08/20 09:55 CK-MB (CK-2) Rel Index 1.7 (0-4) 02/08/20 09:55 Troponin T < 0.010 ng/mL (0.00-0.029) 02/08/20 09:55 Troponin T < 0.010 ng/mL (0.00-0.029) 02/08/20 09:55 C-Reactive Protein 0.30 mg/dL (0.00-1.30) 02/08/20 09:55 Total Protein 5.9 g/dL (6.3-8.2) L 02/11/20 04:09 Albumin 2.9 g/dL (3.9-5) L 02/11/20 04:09 Albumin/Globulin Ratio 1.0 % 02/11/20 04:09 Procalcitonin 0.52 ng/mL (<0.15) 02/10/20 19:46 Urine Color Yellow (Yellow) 02/08/20 11:36 Urine Turbidity Slightly-cloudy (Clear) 02/08/20 11:36 Urine pH 5.0 (5.0-7.0) 02/08/20 11:36 Ur Specific [place] 1.024 (1.003-1.030) 02/08/20 11:36 Urine Protein <15 mg/dl mg/dL (Negative) 02/08/20 11:36 Urine Glucose (UA) >=500 mg/dL (Negative) 02/08/20 11:36 Urine Ketones Tr mg/dL (Negative) 02/08/20 11:36 Urine Blood Mod (Negative) 02/08/20 11:36 Urine Nitrite Pos (Negative) 02/08/20 11:36 Urine Bilirubin Neg (Negative) 02/08/20 11:36 Urine Urobilinogen < 2.0 mg/dL (<2.0) 02/08/20 11:36 Ur Leukocyte Esterase Sm (Negative) 02/08/20 11:36 Urine WBC (Auto) 65.0 /HPF (0.0-6.0) H 02/08/20 11:36 Urine RBC (Auto) 15.0 /HPF (0.0-6.0) 02/08/20 11:36 Urine Bacteria (Auto) 1+ /HPF (Negative) 02/08/20 11:36 Urine Yeast (Budding) 2+ /HPF 02/08/20 11:36 Urine Opiates Screen Presumptive negative 02/08/20 11:36 Urine Methadone Screen Presumptive negative 02/08/20 11:36 Ur Barbiturates Screen Presumptive negative 02/08/20 11:36 Ur Phencyclidine Scrn Presumptive negative 02/08/20 11:36 Ur Amphetamines Screen Presumptive negative 02/08/20 11:36 U Benzodiazepines Scrn Presumptive negative 02/08/20 11:36 Urine Cocaine Screen Presumptive negative 02/08/20 11:36 U Marijuana (THC) Screen Presumptive negative 02/08/20 11:36 Drugs of Abuse Note Disclamer 02/08/20 11:36 Plasma/Serum Alcohol < 0.01 % (0-0.07) 02/08/20 09:55 Microbiology: Microbiology 02/08/20 Unknown Peripheral/Venous Blood Culture - Final NO GROWTH AFTER 5 DAYS 02/08/20 Unknown Peripheral/Venous Blood Culture - Final NO GROWTH AFTER 5 DAYS Torres/IV: Voiding Method Urinal IV Catheter Type [Left Forearm INT / Saline Lock ] IV Catheter Type [Right INT / Saline Lock Antecubital] IV Catheter Type [Right Hand] Peripheral IV Active Medications - Current Medications Current Medications: Generic Name Dose Route Start Last Admin Trade Name Freq PRN Reason Stop Dose Admin Amlodipine Besylate 5 mg 02/12/20 15:00 02/14/20 09:45 Amlodipine PO 5 mg QDAY UBALDO Administration Lipase/Protease/Amylase 1 each 02/08/20 16:[address] 10,500 Unit FEEDTUBE PRN PRN For Clogged Feeding Tube Bisoprolol Fumarate 1 each 02/12/20 15:30 02/14/20 09:46 Ziac 2.5-6.25 PO 1 each QDAY UBALDO Administration Dextrose 50 ml 02/09/20 08:30 D50w (25gm) Syringe IV Q30MIN PRN Hypoglycemia Protocol Enoxaparin Sodium 90 mg 02/11/20 10:00 02/14/20 09:45 Enoxaparin SUB-Q 90 mg Q12HR UBALDO Administration Famotidine 20 mg 02/09/20 10:00 02/14/20 09:46 Pepcid IV 20 mg BID UBALDO Administration Hydralazine HCl 10 mg 02/12/20 15:00 Apresoline IV Q4H PRN Hypertension Hydromorphone HCl 0.5 mg 02/08/20 16:27 Dilaudid IV Q3H PRN Pain , Severe (7-10) Hydrophilic Ointment 1 applic 02/08/20 11:37 Vaseline Lip Therapy TP Q2HR PRN Dry Lips Insulin Glargine 16 units 02/09/20 22:00 02/13/20 23:14 Lantus SUB-Q 16 units QHS UBALDO Administration Insulin Human Lispro 0 unit 02/09/20 12:00 02/14/20 06:50 Humalog SUB-Q Not Given Q6HR [facility] Protocol Morphine Sulfate 2 mg 02/08/20 16:27 Morphine IV Q4H PRN Pain, Moderate (4-6) Multi-Ingred Cream/Lotion/Oil/Oint 1 applic 02/08/20 11:37 Artificial Tears Ophth Oint OU Q4HR PRN Dry Eye(s) Simple Syrup 15 ml 02/08/20 16:27 Simple Syrup FEEDTUBE PRN PRN Hypoglycemia Simple Syrup 30 ml 02/08/20 16:27 Simple Syrup FEEDTUBE PRN PRN Hypoglycemia Sodium Bicarbonate 325 mg 02/08/20 16:27 Sodium Bicarbonate FEEDTUBE PRN PRN For Clogged Feeding Tube Sodium Chloride 10 ml 02/08/20 22:00 02/14/20 09:46 Sodium Chloride Flush Syringe 10 Ml IV 10 ml BID UBALDO Administration Sodium Chloride 10 ml 02/08/20 16:27 Sodium Chloride Flush Syringe 10 Ml IV PRN PRN LINE FLUSH Nutrition/Malnutrition Assess - Dietary Evaluation Nutrition/Malnutrition Findings: Nutrition Notes Start: 02/09/20 07:55 Freq: Status: Active Protocol: Document 02/11/20 12:19 LM (Rec: 02/11/20 12:29 LM [email or web address]) Nutrition Notes Initial or Follow up Brief Note Current Diagnosis Diabetes,Sepsis,Hypertension Other Pertinent Diagnosis AMS, DKA Current Diet Vital AF 1.2 at 65ml/hr Labs/Tests BG 247 Pertinent Medications BG 247 D5W at 75ml/hr Humalog Propofol at 2.625ml/hr (69kcal ) Height 5 ft 10 in Weight 87.5 kg [place] Body Weight (kg) 75.45 BMI 27.6 Weight Status Overweight Subjective/Other Information Per RN, TF on hold due to pt not having KUB. plans to extubate pt. Pt also not being tested for COVID-19. Nutrition Intervention Follow-Up By: 02/15/20 Additional Comments F/U for vent status/diet advancement
--- NOTE | 2020-02-14 13:47 | Progress Note ---
Assessment and Plan Cultures: 02/08/2020 urine culture: ?normal skin carlito 02/08/2020 blood culture: No growth in 48 hours A/P: 74-year-old male with hypertension was brought into the emergency room yesterday with altered mental status: #Sepsis: source unclear. ?UTI given evidence of pyuria. SIRS from DKA possible. #Acidosis: DKA, lactate elevated on admission. #SOURAV: Creatinine improved. #Diabetes mellitus, uncontrolled. #Acute encephalopathy: appears to be improving. Recs: doing well off antibiotics ID will sign off. Please call with questions. Trisha Null MD, FACP [facility] C: [phone] O: [phone] F: [phone] Subjective Date of service: 02/14/20 Principal diagnosis: Acute hypoxemic resp failure; Ac. encephalopathy; DKA; SIRS; SOURAV Interval history: No fever. Denies any complaints. Wants to go home. Remains stable. Objective - Exam Narrative Exam: Physical Exam: Constitutional: awake, no distress Head, Ears, Nose: Normocephalic, atraumatic. External ears, nose normal Eyes: Conjunctivae/corneas clear. No icterus. No ptosis. Neck: supple, no meningeal signs Cardiovascular: S1, S2 + Respiratory: AE fair bilaterally and equal GI: Soft, bowel sounds + Musculoskeletal: No pedal edema, no cyanosis. Skin: No rash or abscess Hem/Lymphatic: No palpable cervical or supraclavicular nodes. No lymphangitis Psych: no agitation Neurological: awake, alert, answering questions - Constitutional Vitals: Vital Signs Temp Pulse Resp BP Pulse Ox 98.2 F 76 18 162/84 95 02/14/20 11:59 02/14/20 11:59 02/14/20 11:59 02/14/20 11:59 02/14/20 11:59 Temperature -Last 24 Hours Temperature 98.2 F Temperature 98.4 F Temperature 98.5 F Temperature 98.8 F Temperature 98.7 F Temperature 98.6 F Temperature 96.5 F - Labs CBC & Chem 7: 02/14/20 03:43 02/14/20 03:43 Labs: Abnormal lab results 02/13/20 02/13/20 02/14/20 Range/Units 17:51 23:25 03:43 Potassium 3.0 L (3.6-5.0) mmol/L Carbon Dioxide 21 L (22-30) mmol/L Glucose 150 H (75-100) mg/dL POC Glucose 202 H 114 H (70-105) 02/14/20 02/14/20 Range/Units 05:32 11:48 Potassium (3.6-5.0) mmol/L Carbon Dioxide (22-30) mmol/L Glucose (75-100) mg/dL POC Glucose 137 H 245 H (70-105)
[2020-02-14] MEDS: DOCUSATE SODIUM 100 MG CAP PO SCH (21:49)
[2020-02-14] MEDS: INSULIN GLARGINE 100 UNITS/ML SUB-Q SCH (21:49)
[2020-02-15] MEDS: INSULIN LISPRO 100 UNIT/ML SUB-Q SCH ×3 (06:12→17:15)
[2020-02-15] MEDS: HCTZ 6.25 MG PO SCH (09:04)
[2020-02-15] MEDS: BISOPROLOL PO SCH (09:04)
[2020-02-15] MEDS: DOCUSATE SODIUM 100 MG CAP PO SCH (09:09)
[2020-02-15] MEDS: amLODIPine 5 MG TAB PO SCH (09:09)
[2020-02-15] MEDS: ENOXAPARIN 100 MG/1 ML INJ SUB-Q SCH (09:09)
[2020-02-15] MEDS: FAMOTIDINE 20 MG/2 ML INJ IV SCH (09:10)
[2020-02-15 12:03] VITALS: BP 123/66
--- NOTE | 2020-02-15 13:45 | Progress Note ---
Assessment and Plan Acute hypoxemic respiratory failure s/p MVS Acute encephalopathy, toxic metabolic-resolved Diabetic ketoacidosis vs hyperosmolar non ketotic state Sepsis probably secondary to cysitis/UTI Leukocytosis. Acute kidney injury- resolved Hypernatremia-resolved Hypokalemia --continue to wean supplemental oxygen for target O2 sats > 90% -ABG, CXR prn -Incentive spirometry with airway clearance techniques -Replace potassium, keep K >4 and Magnesium >2.0 -Avoid nephrotoxins, renal dosing of all medications -PT/OT, increase activity -Diabetes education -Discharge planning - continue bronchodilators with pulmonary hygiene per RT - accuchecks with glycemic control per SSI (While critically ill target blood glucose of 140-180 mg/dL; avoid hypoglycemia) -Care per DKA protocol- currently off insulin infusion. - continue to avoid benzodiazepines, reduce the possibility of delirium -Antibiotics per ID. De-escalate based on ANGELITO and culture results - prn analgesia per CPOT score - VTE prophylaxis - continue mobility protocol, off loading and skin assessment for pressure ulcer prevention -Ostomy care- requesting that his bring in his urine bags - Monitor hemodynamics closely - continue other care per attending / other consultants Subjective Date of service: 02/15/20 Principal diagnosis: Acute hypoxemic resp failure; Ac. encephalopathy; DKA; SIRS; SOURAV Interval history: Patient is seen today for: Acute hypoxemic respiratory failure; Acute encephalopathy; DKA; Sepsis secondary to cystitis/UTI; SOURAV Seen and examined at bedside; 24hour events reviewed; nursing and respiratory care staff consulted; no adverse overnight events reported to me; off supplemental oxygen and doing well ;no new overnight events reported; no fevers; no diarrhea or vomiting, sitting up at the side of the bed working with PT/OT. Wanting to go home Objective Vital Signs - 12hr 02/15/20 02/15/20 02/15/20 03:31 04:00 08:45 Temperature 98.8 F 97.9 F Pulse Rate 76 76 75 Respiratory 18 28 H Rate Blood Pressure 118/64 Blood Pressure 164/85 [Right] O2 Sat by Pulse 95 95 Oximetry 02/15/20 11:57 Temperature 98.3 F Pulse Rate 77 Respiratory 18 Rate Blood Pressure 123/66 Blood Pressure [Right] O2 Sat by Pulse 95 Oximetry Constitutional: no acute distress, alert Eyes: non-icteric ENT: oropharynx moist, other (extubated) Neck: supple, no lymphadenopathy, no JVD Effort: normal Ascultation: Bilateral: diminished breath sounds, rhonchi Percussion: Bilateral: not dull Cardiovascular: regular rate and rhythm Gastrointestinal: normoactive bowel sounds, soft, non-tender, non-distended Integumentary: normal Extremities: no cyanosis, no edema, pink and warm, pulses normal Neurologic: normal mental status, non-focal exam, pupils equal and round, CN II- XII normal, motor strength normal and Psychiatric: mood appropriate, affect normal CBC and BMP: 02/14/20 03:43 02/14/20 03:43 ABG, PT/INR, D-dimer: ABG ABG pH 7.326 pH Units (7.350-7.450) L 02/11/20 09:45 ABG pCO2 41.3 mm Hg 02/11/20 09:45 ABG pO2 117.1 mm Hg (80.0-90.0) H 02/11/20 09:45 ABG O2 Saturation 98.0 % (95.0-99.0) 02/11/20 09:45 PT/INR, D-dimer PT 13.5 Sec. (12.2-14.9) 02/08/20 09:55 INR 1.02 (0.87-1.13) 02/08/20 09:55 D-Dimer 8032.84 ng/mlDDU (0-234) H 02/10/20 19:46 Abnormal lab findings: Abnormal Labs 02/08/20 02/08/20 02/08/20 09:12 09:55 09:55 WBC 21.0 H RBC 5.59 H Hgb 16.0 H Hct 50.0 H Seg Neuts % (Manual) 94.0 H Lymphocytes % (Manual) 2.0 L Nucleated RBC % 1.0 H Seg Neutrophils # Man 19.7 H Lymphocytes # (Manual) 0.4 L APTT 23.2 L D-Dimer 299.15 H ABG pH ABG pO2 ABG HCO3 ABG O2 Saturation ABG Base Excess ABG Hemoglobin Sodium Potassium Chloride Carbon Dioxide BUN Creatinine Glucose POC Glucose > 500 H Lactic Acid Calcium Phosphorus Magnesium Ferritin Total Protein Albumin Urine WBC (Auto) 02/08/20 02/08/20 02/08/20 09:55 09:55 10:30 WBC RBC Hgb Hct Seg Neuts % (Manual) Lymphocytes % (Manual) Nucleated RBC % Seg Neutrophils # Man Lymphocytes # (Manual) APTT D-Dimer ABG pH 7.275 L ABG pO2 365.1 H ABG HCO3 17.4 L ABG O2 Saturation 99.5 H ABG Base Excess -8.7 L ABG Hemoglobin Sodium 128 L Potassium 5.1 H Chloride 91.4 L Carbon Dioxide 10 L BUN 38 H Creatinine 2.7 H Glucose 803 H* POC Glucose Lactic Acid Calcium Phosphorus Magnesium Ferritin 861.7 H Total Protein 5.9 L Albumin 3.5 L Urine WBC (Auto) 02/08/20 02/08/20 02/08/20 10:45 11:36 11:40 WBC RBC Hgb Hct Seg Neuts % (Manual) Lymphocytes % (Manual) Nucleated RBC % Seg Neutrophils # Man Lymphocytes # (Manual) APTT D-Dimer ABG pH ABG pO2 ABG HCO3 ABG O2 Saturation ABG Base Excess ABG Hemoglobin Sodium Potassium Chloride Carbon Dioxide BUN Creatinine Glucose POC Glucose Lactic Acid 6.10 H* Calcium Phosphorus Magnesium 2.70 H Ferritin Total Protein Albumin Urine WBC (Auto) 65.0 H 02/08/20 02/08/20 02/08/20 11:40 13:21 13:55 WBC RBC Hgb Hct Seg Neuts % (Manual) Lymphocytes % (Manual) Nucleated RBC % Seg Neutrophils # Man Lymphocytes # (Manual) APTT D-Dimer ABG pH ABG pO2 ABG HCO3 ABG O2 Saturation ABG Base Excess ABG Hemoglobin Sodium 130 L 135 L Potassium 5.1 H Chloride 91.5 L Carbon Dioxide 14 L 11 L BUN 38 H 34 H Creatinine 2.3 H 2.1 H Glucose 727 H* 473 H POC Glucose > 500 H Lactic Acid Calcium 8.3 L Phosphorus Magnesium Ferritin Total Protein Albumin Urine WBC (Auto) 02/08/20 02/08/20 02/08/20 14:36 15:15 15:48 WBC RBC Hgb Hct Seg Neuts % (Manual) Lymphocytes % (Manual) Nucleated RBC % Seg Neutrophils # Man Lymphocytes # (Manual) APTT D-Dimer ABG pH ABG pO2 ABG HCO3 ABG O2 Saturation ABG Base Excess ABG Hemoglobin Sodium Potassium Chloride 108.8 H Carbon Dioxide 15 L BUN 34 H Creatinine 2.0 H Glucose 293 H POC Glucose 342 H 305 H Lactic Acid Calcium 8.1 L Phosphorus Magnesium Ferritin Total Protein Albumin Urine WBC (Auto) 02/08/20 02/08/20 02/08/20 17:00 18:10 18:10 WBC RBC Hgb Hct Seg Neuts % (Manual) Lymphocytes % (Manual) Nucleated RBC % Seg Neutrophils # Man Lymphocytes # (Manual) APTT D-Dimer ABG pH ABG pO2 ABG HCO3 ABG O2 Saturation ABG Base Excess ABG Hemoglobin Sodium Potassium Chloride 107.4 H Carbon Dioxide 16 L BUN 31 H Creatinine 2.1 H Glucose 216 H POC Glucose 249 H Lactic Acid Calcium Phosphorus 2.20 L D Magnesium 2.40 H Ferritin Total Protein Albumin Urine WBC (Auto) 02/08/20 02/08/20 02/08/20 18:39 19:52 21:34 WBC RBC Hgb Hct Seg Neuts % (Manual) Lymphocytes % (Manual) Nucleated RBC % Seg Neutrophils # Man Lymphocytes # (Manual) APTT D-Dimer ABG pH ABG pO2 ABG HCO3 ABG O2 Saturation ABG Base Excess ABG Hemoglobin Sodium Potassium Chloride Carbon Dioxide BUN Creatinine Glucose POC Glucose 204 H 239 H 209 H Lactic Acid Calcium Phosphorus Magnesium Ferritin Total Protein Albumin Urine WBC (Auto) 02/08/20 02/09/20 02/09/20 23:25 00:35 00:48 WBC RBC Hgb Hct Seg Neuts % (Manual) Lymphocytes % (Manual) Nucleated RBC % Seg Neutrophils # Man Lymphocytes # (Manual) APTT D-Dimer ABG pH ABG pO2 ABG HCO3 ABG O2 Saturation ABG Base Excess ABG Hemoglobin Sodium Potassium Chloride 114.9 H Carbon Dioxide 15 L BUN 28 H Creatinine Glucose 160 H POC Glucose 187 H 160 H Lactic Acid Calcium 8.0 L Phosphorus Magnesium Ferritin Total Protein Albumin Urine WBC (Auto) 02/09/20 02/09/20 02/09/20 01:40 03:04 04:14 WBC RBC Hgb Hct Seg Neuts % (Manual) Lymphocytes % (Manual) Nucleated RBC % Seg Neutrophils # Man Lymphocytes # (Manual) APTT D-Dimer ABG pH ABG pO2 ABG HCO3 ABG O2 Saturation ABG Base Excess ABG Hemoglobin Sodium Potassium Chloride Carbon Dioxide BUN Creatinine Glucose POC Glucose 181 H 136 H 114 H Lactic Acid Calcium Phosphorus Magnesium Ferritin Total Protein Albumin Urine WBC (Auto) 02/09/20 02/09/20 02/09/20 04:18 05:27 06:38 WBC RBC Hgb Hct Seg Neuts % (Manual) Lymphocytes % (Manual) Nucleated RBC % Seg Neutrophils # Man Lymphocytes # (Manual) APTT D-Dimer ABG pH ABG pO2 ABG HCO3 ABG O2 Saturation ABG Base Excess ABG Hemoglobin Sodium Potassium 3.5 L Chloride 117.0 H Carbon Dioxide 19 L BUN 27 H Creatinine Glucose 113 H POC Glucose 151 H 127 H Lactic Acid Calcium 8.2 L Phosphorus Magnesium Ferritin Total Protein Albumin Urine WBC (Auto) 02/09/20 02/09/20 02/09/20 08:14 08:45 12:34 WBC RBC Hgb Hct Seg Neuts % (Manual) Lymphocytes % (Manual) Nucleated RBC % Seg Neutrophils # Man Lymphocytes # (Manual) APTT D-Dimer ABG pH ABG pO2 ABG HCO3 ABG O2 Saturation ABG Base Excess ABG Hemoglobin Sodium Potassium Chloride 114.3 H Carbon Dioxide 16 L BUN 22 H Creatinine Glucose 225 H POC Glucose 140 H 255 H Lactic Acid Calcium 8.1 L Phosphorus Magnesium Ferritin Total Protein Albumin Urine WBC (Auto) 02/09/20 02/09/20 02/09/20 15:49 16:35 17:25 WBC RBC Hgb Hct Seg Neuts % (Manual) Lymphocytes % (Manual) Nucleated RBC % Seg Neutrophils # Man Lymphocytes # (Manual) APTT D-Dimer ABG pH 7.340 L ABG pO2 123.9 H ABG HCO3 19.9 L ABG O2 Saturation ABG Base Excess -5.1 L ABG Hemoglobin Sodium 146 H Potassium Chloride 117.1 H Carbon Dioxide 19 L BUN Creatinine Glucose 242 H POC Glucose 192 H Lactic Acid Calcium 8.2 L Phosphorus Magnesium Ferritin Total Protein Albumin Urine WBC (Auto) 02/09/20 02/10/20 02/10/20 Unknown 00:11 03:46 WBC RBC Hgb Hct Seg Neuts % (Manual) Lymphocytes % (Manual) Nucleated RBC % Seg Neutrophils # Man Lymphocytes # (Manual) APTT D-Dimer ABG pH 7.323 L 7.310 L ABG pO2 164.8 H 112.8 H ABG HCO3 19.7 L ABG O2 Saturation ABG Base Excess -5.9 L -4.8 L ABG Hemoglobin 13.6 L 13.0 L Sodium Potassium Chloride Carbon Dioxide BUN Creatinine Glucose POC Glucose 156 H Lactic Acid Calcium Phosphorus Magnesium Ferritin Total Protein Albumin Urine WBC (Auto) 02/10/20 02/10/20 02/10/20 04:01 05:34 11:38 WBC RBC Hgb Hct Seg Neuts % (Manual) Lymphocytes % (Manual) Nucleated RBC % Seg Neutrophils # Man Lymphocytes # (Manual) APTT D-Dimer ABG pH ABG pO2 ABG HCO3 ABG O2 Saturation ABG Base Excess ABG Hemoglobin Sodium 149 H Potassium Chloride 121.2 H Carbon Dioxide 19 L BUN Creatinine Glucose 184 H POC Glucose 214 H 225 H Lactic Acid Calcium 8.1 L Phosphorus Magnesium Ferritin Total Protein Albumin Urine WBC (Auto) 02/10/20 02/10/20 02/10/20 16:43 17:57 19:46 WBC RBC Hgb Hct Seg Neuts % (Manual) Lymphocytes % (Manual) Nucleated RBC % Seg Neutrophils # Man Lymphocytes # (Manual) APTT D-Dimer 8032.84 H ABG pH 7.295 L ABG pO2 136.3 H ABG HCO3 18.9 L ABG O2 Saturation ABG Base Excess -7.1 L ABG Hemoglobin Sodium Potassium Chloride Carbon Dioxide BUN Creatinine Glucose POC Glucose 194 H Lactic Acid Calcium Phosphorus Magnesium Ferritin Total Protein Albumin Urine WBC (Auto) 02/10/20 02/11/20 02/11/20 19:46 00:12 04:09 WBC RBC Hgb Hct Seg Neuts % (Manual) Lymphocytes % (Manual) Nucleated RBC % Seg Neutrophils # Man Lymphocytes # (Manual) APTT D-Dimer ABG pH ABG pO2 ABG HCO3 ABG O2 Saturation ABG Base Excess ABG Hemoglobin Sodium Potassium Chloride 114.7 H Carbon Dioxide 20 L BUN Creatinine Glucose 247 H POC Glucose 255 H Lactic Acid Calcium Phosphorus Magnesium Ferritin 876.5 H Total Protein 5.9 L Albumin 2.9 L Urine WBC (Auto) 02/11/20 02/11/20 02/11/20 05:40 09:45 11:44 WBC RBC Hgb Hct Seg Neuts % (Manual) Lymphocytes % (Manual) Nucleated RBC % Seg Neutrophils # Man Lymphocytes # (Manual) APTT D-Dimer ABG pH 7.326 L ABG pO2 117.1 H ABG HCO3 ABG O2 Saturation ABG Base Excess -4.6 L ABG Hemoglobin 13.8 L Sodium Potassium Chloride Carbon Dioxide BUN Creatinine Glucose POC Glucose 223 H 224 H Lactic Acid Calcium Phosphorus Magnesium Ferritin Total Protein Albumin Urine WBC (Auto) 04/02/11/20 02/12/20 17:51 21:27 00:24 WBC RBC Hgb Hct Seg Neuts % (Manual) Lymphocytes % (Manual) Nucleated RBC % Seg Neutrophils # Man Lymphocytes # (Manual) APTT D-Dimer ABG pH ABG pO2 ABG HCO3 ABG O2 Saturation ABG Base Excess ABG Hemoglobin Sodium Potassium Chloride Carbon Dioxide BUN Creatinine Glucose POC Glucose 199 H 175 H 172 H Lactic Acid Calcium Phosphorus Magnesium Ferritin Total Protein Albumin Urine WBC (Auto) 02/12/20 02/12/20 02/12/20 05:31 12:29 17:07 WBC RBC Hgb Hct Seg Neuts % (Manual) Lymphocytes % (Manual) Nucleated RBC % Seg Neutrophils # Man Lymphocytes # (Manual) APTT D-Dimer ABG pH ABG pO2 ABG HCO3 ABG O2 Saturation ABG Base Excess ABG Hemoglobin Sodium Potassium Chloride Carbon Dioxide BUN Creatinine Glucose POC Glucose 155 H 178 H 196 H Lactic Acid Calcium Phosphorus Magnesium Ferritin Total Protein Albumin Urine WBC (Auto) 02/12/20 02/13/20 02/13/20 22:18 04:20 04:20 WBC 12.0 H RBC Hgb Hct Seg Neuts % (Manual) Lymphocytes % (Manual) Nucleated RBC % Seg Neutrophils # Man Lymphocytes # (Manual) APTT D-Dimer ABG pH ABG pO2 ABG HCO3 ABG O2 Saturation ABG Base Excess ABG Hemoglobin Sodium 146 H Potassium 3.0 L D Chloride 113.1 H Carbon Dioxide 20 L BUN Creatinine Glucose POC Glucose 341 H Lactic Acid Calcium Phosphorus Magnesium Ferritin Total Protein Albumin Urine WBC (Auto) 02/13/20 02/13/20 02/13/20 05:48 08:45 12:06 WBC RBC Hgb Hct Seg Neuts % (Manual) Lymphocytes % (Manual) Nucleated RBC % Seg Neutrophils # Man Lymphocytes # (Manual) APTT D-Dimer ABG pH ABG pO2 ABG HCO3 ABG O2 Saturation ABG Base Excess ABG Hemoglobin Sodium Potassium Chloride Carbon Dioxide BUN Creatinine Glucose POC Glucose 109 H 123 H 325 H Lactic Acid Calcium Phosphorus Magnesium Ferritin Total Protein Albumin Urine WBC (Auto) 02/13/20 02/13/20 02/14/20 17:51 23:25 03:43 WBC RBC Hgb Hct Seg Neuts % (Manual) Lymphocytes % (Manual) Nucleated RBC % Seg Neutrophils # Man Lymphocytes # (Manual) APTT D-Dimer ABG pH ABG pO2 ABG HCO3 ABG O2 Saturation ABG Base Excess ABG Hemoglobin Sodium Potassium 3.0 L Chloride Carbon Dioxide 21 L BUN Creatinine Glucose 150 H POC Glucose 202 H 114 H Lactic Acid Calcium Phosphorus Magnesium Ferritin Total Protein Albumin Urine WBC (Auto) 02/14/20 02/14/20 02/14/20 05:32 11:48 17:33 WBC RBC Hgb Hct Seg Neuts % (Manual) Lymphocytes % (Manual) Nucleated RBC % Seg Neutrophils # Man Lymphocytes # (Manual) APTT D-Dimer ABG pH ABG pO2 ABG HCO3 ABG O2 Saturation ABG Base Excess ABG Hemoglobin Sodium Potassium Chloride Carbon Dioxide BUN Creatinine Glucose POC Glucose 137 H 245 H 145 H Lactic Acid Calcium Phosphorus Magnesium Ferritin Total Protein Albumin Urine WBC (Auto) 02/14/20 02/15/20 21:36 12:13 WBC RBC Hgb Hct Seg Neuts % (Manual) Lymphocytes % (Manual) Nucleated RBC % Seg Neutrophils # Man Lymphocytes # (Manual) APTT D-Dimer ABG pH ABG pO2 ABG HCO3 ABG O2 Saturation ABG Base Excess ABG Hemoglobin Sodium Potassium Chloride Carbon Dioxide BUN Creatinine Glucose POC Glucose 220 H 326 H Lactic Acid Calcium Phosphorus Magnesium Ferritin Total Protein Albumin Urine WBC (Auto) Allied health notes reviewed: PT
--- NOTE | 2020-02-15 15:53 | Discharge Summary ---
Providers - Providers Date of Admission: 02/08/20 12:36 Attending physician: AURELIO ARMSTRONG MD 02/08/20 10:42 Speech Therapy Evaluation and Treat [CONS] Routine Reason For Exam: failed bedside swallow eval 02/08/20 11:37 Consult to Dietitian/Nutrition [CONS] Routine Physician Instructions: Reason For Exam: Reason for Consult: Evaluate nutritional intake 02/08/20 16:28 Consult to Physician [CONS] Routine Comment: Consulting Provider: JAYSHREE CASTANEDA Physician Instructions: Reason For Exam: Acute respiratory failure, DKA 02/08/20 16:30 Consult to Dietitian/Nutrition [CONS] Routine Physician Instructions: Assess nutrtn needs, initiate, modify, manage TF Reason For Exam: Reason for Consult: Write/Manage Tube Feeding Reason for Consult: Write/Manage Tube Feeding 02/09/20 06:05 Consult to Physician [CONS] Routine Comment: Consulting Provider: JOHN VIDAL Physician Instructions: Reason For Exam: Sepsis 02/09/20 06:07 Consult to Physician [CONS] Routine Comment: Consulting Provider: HARITHA HOLM Physician Instructions: Reason For Exam: encephalopathy 02/12/20 11:21 Occupational Therapy Evaluate and Treat [CONS] Routine Comment: Reason For Exam: Debility Physical Therapy Evaluation and Treat [CONS] Routine Comment: Reason For Exam: Debility Primary care physician: PLANE RUNNER Hospitalization Reason for admission: respirratory failure Condition: Stable Hospital course: Patient currently intubated history obtained from ED documentation patient is 74-year-old male with history of hypertension. Patient brought to the emergency room via EMS from home for evaluation of altered mental status and decreased responsiveness. EMS stated that patient stated that last time he was normal was 9 PM when he went to bed. denied any history of seizure. She also denied any history of previous stroke. She also informed EMS that he did not have any fever or chills recently. Stroke protocol immediately initiated and patient moved to CT for stat CT brain. Upon return from the CT patient became more obtunded, patient is unable to maintain his airway. Patient immediately intubated by me using a glide scope with ET tube confirmation by direct visualization, capnometry and good breath sounds on both side. Sepsis protocol also initiated for possible sepsis. * On arrival to the hospital patient was noted to have a blood sugar of over 800. * BG improved, Continue supportive care vent management per green inspector Patient has been successfully extubated and continues to improve. it appears his cystitis drove his Diabetes which according to him is a new diagnosis. attempts to reach family was unsuccessful as there was no answer and could not leave a message. Patient was advised about DM diagnosis and management and yearly testing needed. He verbalized understanding. Patient is tolerating diet at this point. Unable to obtain MRI. No further clinical concern for possible CVA. Per infectious disease patient is not a candidate for COVID testing as low suspicion. Renal function is improving at this point Adjust insulin therapy Continue antibiotics as dictated by ID Isolation discontinued as patient not a candidate for COVID tested due to low suspicion. Acute hypoxic respiratory failure Hyperosmotic hyperglycemic nonketotic state versus DKA Sepsis possible acute cystitis Discussed with infectious disease patient not a candidate for COVID low suspicion at this time.-Isolation discontinued Acute metabolic encephalopathy Metabolic acidosis Hypernatremia- Improved Disposition: [id number] HOME UNDER HOME [facility] Time spent for discharge: 35 mins Core Measure Documentation - Palliative Care Palliative Care/ Comfort Measures: Not Applicable - Core Measures Any of the following diagnoses?: none Exam - Physical Exam Narrative exam: VITAL SIGNS: Reviewed. GENERAL: The patient appears normally developed, vital signs as documented. HEAD: No signs of head trauma. EYES: Pupils are equal. EARS: Unable to examine. MOUTH: Oral intact NECK: No adenopathy, no JVD. CHEST: Chest with diminished breath sounds bilaterally. No wheezes, rales, or rhonchi. CARDIAC: Regular rate and rhythm. S1 and S2, without murmurs, gallops, or rubs. VASCULAR: No Edema. Peripheral pulses normal and equal in all extremities. ABDOMEN: Soft, non distended. No rebound or guarding, and no masses palpated. Bowel Sounds normal. MUSCULOSKELETAL: Extremities without clubbing, cyanosis or edema. NEUROLOGIC EXAM: Moves all extremities PSYCHIATRIC: Calm SKIN: detail exam as documented in skin assessment - Constitutional Vitals: Temp Pulse Resp BP Pulse Ox 98.3 F 77 18 123/66 95 02/15/20 11:57 02/15/20 11:57 02/15/20 11:57 02/15/20 11:57 02/15/20 11:57 Plan Activity: advance as tolerated, fall precautions Diet: low fat Special Instructions: record daily weights, record daily BP diary, physical therapy, occupational therapy Follow up with: PRIMARY CARE, [Primary Care Provider] - 3-5 Days MACARIO RODRIGUEZ MD [Staff Physician] - 7 Days JOHN VIDAL MD [Staff Physician] - 7 Days Prescriptions: Insulin Glargine [Lantus VIAL] 16 units SUB-Q QHS #30 units amLODIPine 5 mg PO QDAY #30 tablet Docusate Sodium [Colace CAP] 100 mg PO BID #30 capsule Insulin NPH Human Isophane [Novolin N] 0 unit SQ ACHS #1 vial Famotidine [Pepcid] 20 mg PO BID #60 tablet Bisoprolol/Hctz [Ziac 2.5-6.25] 1 each PO QDAY #30 tablet Other Discharge Orders: Glucometer (Amb) Location: None Selected Glucometer supplies[Amb] Location: None Selected
[2020-02-15] MEDS ORDERED: FAMOTIDINE 20 MG TAB PO SCH (22:00)
== END 2020-02-15 17:36 | disposition home health service (06) | DRG 871 ==
LOC: ED 08:57 → CC1 12:36 → 4A 02-12 15:13
PROVIDERS: ADMIT Internal Medicine; ATTEND Internal Medicine
PROC: 0BH17EZ Insertion of Endotracheal Airway into Trachea, Via Natural or Artificial Opening (ICD-10-PCS; principal; 2020-02-08)
PROC: 5A1945Z Respiratory Ventilation, 24-96 Consecutive Hours (ICD-10-PCS; 2020-02-08)
PROC: 4A033R1 Measurement of Arterial Saturation, Peripheral, Percutaneous Approach (ICD-10-PCS; 2020-02-09)
DX: A41.9 Sepsis, unspecified organism (principal); J96.01 Acute respiratory failure with hypoxia; E11.10 Type 2 diabetes mellitus with ketoacidosis without coma; G92 Toxic encephalopathy; N17.9 Acute kidney failure, unspecified; E87.0 Hyperosmolality and hypernatremia; N30.00 Acute cystitis without hematuria; E44.1 Mild protein-calorie malnutrition; I10 Essential (primary) hypertension; E87.5 Hyperkalemia; R13.12 Dysphagia, oropharyngeal phase; E87.6 Hypokalemia; Z91.041 Radiographic dye allergy status; Z82.49 Family history of ischemic heart disease and other diseases of the circulatory system; Z68.25 Body mass index [BMI] 25.0-25.9, adult
CPT/HCPCS: 36415; 36600; 70450; 70496; 70498; 71045; 80048; 80053; 80076; 80307; 80320; 81001; 82140; 82550; 82553; 82728; 82803; 82962; 83615; 83735; 84100; 84145; 84484; 85007; 85025; 85027; 85379; 85610; 85670; 85730; 86140; 87040; 87070; 87086; 87205; 93005; 93010; 94003; 94760; G0378; G0480; J0692; J0696; J1644; J1650; J1815; J2060; J2543; J2704; J3010; J3370; J3480; J7030; J7040; J7042; J7050; J7070; Q9967